=== PATIENT | male | born 1930 | race Caucasian/White ===

== ENCOUNTER 2016-07-10 07:37 | Outpatient (CLI) | payer MEDICARE, OTHER | END 2016-07-10 07:38 | disposition home or self-care (01) | DX: Q61.02 Congenital multiple renal cysts (principal); Z90.5 Acquired absence of kidney; J81.1 Chronic pulmonary edema; N05.9 Unspecified nephritic syndrome with unspecified morphologic changes; I50.9 Heart failure, unspecified; N18.5 Chronic kidney disease, stage 5 ==

== ENCOUNTER 2016-07-10 09:44 | Outpatient (CLI) | payer MEDICARE, OTHER ==
[2016-07-10 10:41] LABS: CALCIUM 8.9 mg/dL (8.5-10.3); POTASSIUM 4.8 mmol/L (3.5-5.0)
== END 2016-07-10 09:45 | disposition home or self-care (01) ==
LOC: LAB 09:44
PROVIDERS: ATTEND Internal Medicine Nephrology
DX: N05.9 Unspecified nephritic syndrome with unspecified morphologic changes (principal); I50.9 Heart failure, unspecified
CPT/HCPCS: 36415; 80048; 83880

== ENCOUNTER 2016-08-02 01:29 | Outpatient (CLI) | payer MEDICARE, OTHER | END 2016-08-02 01:30 | disposition critical access hospital (66) | LOC: EMS 01:29 | PROVIDERS: ATTEND Surgery | DX: M54.9 Dorsalgia, unspecified (principal); W01.198A Fall on same level from slipping, tripping and stumbling with subsequent striking against other object, initial encounter; Y92.019 Unspecified place in single-family (private) house as the place of occurrence of the external cause | CPT/HCPCS: A0425; A0429 ==

== ENCOUNTER 2016-08-02 01:40 | Inpatient (IN) | payer MEDICARE, OTHER ==
[2016-08-02] MEDS ORDERED: fentaNYL 100 MCG/2 ML VIAL IVP STA ×2 (02:02→03:38)
[2016-08-02] MEDS ORDERED: fentaNYL 100 MCG/2 ML VIAL ONE ×2 (02:07→03:34)
--- NOTE | 2016-08-02 03:11 | CT Preliminary Report ---
Exam: CT Chest W/O IMPRESSION: 1. Left posterior eighth and ninth rib fractures. 2. Moderate left basilar atelectasis or infiltrate. Mild pulmonary contusion could also be present. N o significant pleural fluid collection or pneumothorax. 3. Coronary artery calcifications. 4. Small hiatal hernia. [facility] SITE ID: [id number]
--- NOTE | 2016-08-02 03:13 | CT Report ---
EXAM: CT CHEST EXAM DATE: 08/02/2016 02:46 AM. CLINICAL HISTORY: Fall, posterior left rib pain, osteoporosis. COMPARISONS: None. TECHNIQUE: Routine helical CT imaging was performed through the chest. IV contrast: None. Reconstructions: Coron al and sagittal. In accordance with CT protocol optimization, one or more of the following dose reduction techniques w ere utilized for this exam: automated exposure control, adjustment of mA and/or KV based on patient s ize, or use of iterative reconstructive technique. FINDINGS: Lungs/Pleura: Mild right basilar atelectasis. Moderate left basilar atelectasis, infiltrate, or pulmo nary contusion. No significant pleural fluid collection. No pneumothorax seen. Mediastinum: Heart size is normal. Coronary artery calcifications. No lymphadenopathy seen. No medias tinal hematoma. Aortic atherosclerosis. No aortic aneurysm. Small hiatal hernia. Bones: Osteopenia. Left posterior eighth and ninth rib fractures. Degenerative changes in the spine. Visualized Abdomen: Status post right nephrectomy. Moderate to large amount of stool in the visualize d portions of the colon. Other: None. IMPRESSION: 1. Left posterior eighth and ninth rib fractures. 2. Moderate left basilar atelectasis or infiltrate. Mild pulmonary contusion could also be present. N o significant pleural fluid collection or pneumothorax. 3. Coronary artery calcifications. 4. Small hiatal hernia. [facility] Referring Provider Line: [phone] SITE ID: [id number]
[2016-08-02] MEDS ORDERED: IBUPROFEN 600 MG TABLET PO PRN (03:32)
[2016-08-02] MEDS ORDERED: ONDANSETRON 4 MG/2 ML VIAL IVP PRN (03:32)
[2016-08-02] MEDS ORDERED: PROCHLORPERAZINE 10 MG/2 ML VIAL IVP PRN (03:32)
[2016-08-02] MEDS ORDERED: SODIUM CHLORIDE FLUSH 0.9% 10 ML SYRINGE IVP PRN (03:32)
--- NOTE | 2016-08-02 03:32 | ED Physician Documentation ---
PD HPI TRUNK INJURY - Stated complaint Stated Complaint: L Flank & Rib px - Chief complaint Chief Complaint: Trauma Ch/Bk - History obtained from History obtained from: Patient, EMS - History of Present Illness Location: Posterior chest Type of injury: Fall Timing - onset: How many hours ago (1) Timing - details: Abrupt onset Quality: Pain, Sharp Improved by: Immobilization Associated symtptoms: Swelling. No: Weakness, Numbness, Tingling Where injury occured: Home Similar symptoms before: Has not had sx before Recently seen: Not recently seen - Additional information Additional information: Patient is a 85 year old male who is presenting after falling landing on his back. Patient states that he has pain in his left posterior ribs but denies any other pain at this time. Patient denied any loc or any head pain. Review of Systems Constitutional: denies: Fever, Chills Eyes: denies: Loss of vision, Photophobia Ears: denies: Ear pain Nose: denies: Epistaxis Throat: denies: Dental pain / toothache Cardiac: denies: Chest pain / pressure, Palpitations Respiratory: denies: Cough, Wheezing GI: denies: Abdominal Pain, Nausea, Vomiting Skin: denies: Rash, Lesions, Laceration (s) Musculoskeletal: reports: Back pain. denies: Neck pain, Extremity pain, Joint pain, Extremity swelling Neurologic: denies: Generalized weakness, Focal weakness, Numbness, Difficulty speaking Immunocompromised: denies: Immunocompromised PD PAST MEDICAL HISTORY - Past Medical History Cardiovascular: Hypertension, High cholesterol Respiratory: None Neuro: None Endocrine/Autoimmune: Type 2 diabetes GI: GERD, Ulcers : Renal insuffiency HEENT: Chronic vision loss Psych: None Musculoskeletal: Osteoarthritis Derm: None - Past Surgical History Past Surgical History: Yes General: Appendectomy Ortho: Knee replacement Neuro: Craniotomy HEENT: Tonsil/Adenoidectomy - Present Medications Home Medications: Ambulatory Orders Medication Instructions Recorded Confirmed Amlodipine Besylate 5 mg PO DAILY 02/01/13 08/02/16 Atorvastatin Calcium [Lipitor] 20 mg PO DAILY 02/01/13 08/02/16 Ferrous Gluconate [Iron] 236 mg PO DAILY 02/01/13 08/02/16 Ergocalciferol [Vitamin D2] 1 cap PO DAILY 08/02/16 08/02/16 - Allergies Allergies/Adverse Reactions: Allergies Allergy/AdvReac Type Severity Reaction Status Date / Time niacin Allergy Severe Hives Verified 11/29/15 10:28 - Social History Does the pt smoke?: No Smoking Status: Former smoker Does the pt drink ETOH?: No Does the pt have substance abuse?: No - Immunizations Immunizations are current?: Yes - POLST Patient has POLST: No PD ED PE NORMAL - General General: Alert and oriented X 3, Well developed/nourished - HEENT HEENT: Atraumatic, PERRL, Dentition benign - Neck Neck: Supple, no meningeal sign, No bony TTP - Cardiac Cardiac: RRR, No murmur - Respiratory Respiratory: No respiratory distress, Clear bilaterally - Abdomen Abdomen: Soft, Non distended - Derm Derm: Normal color, Warm and dry, No rash - Extremities Extremities: No deformity, No tenderness to palpate, No calf tenderness / cord - Neuro Neuro: Alert and oriented X 3, No motor deficit, No sensory deficit, Normal speech - Psych Psych: Normal mood, Normal affect PD ED PE EXPANDED - General General: Alert, In Pain - Back Back: Other (tenderness to palpation of left posterior ribs) Results - Vitals Vitals: Vital Signs - 24 hr 08/02/16 08/02/16 08/02/16 01:40 02:10 02:25 Temperature 36.7 C Heart Rate 62 64 63 Respiratory 18 17 16 Rate Blood Pressure 157/75 H 156/73 H 169/72 H O2 Saturation 95 95 95 08/02/16 08/02/16 02:51 03:32 Temperature Heart Rate 66 68 Respiratory 16 18 Rate Blood Pressure 161/80 H 159/72 H O2 Saturation 94 95 Oxygen O2 Source [With Activity] Room air O2 Source [Without Activity] Room air O2 Source Room air - Rads (name of study) chest CT Radiology: Final report received (fractures of posterior 8th and 9th ribs, pulmonary contusion, atelectasis vs infiltrate) PD MEDICAL DECISION MAKING - ED course Complexity details: reviewed old records, reviewed results, re-evaluated patient , considered differential, d/w patient, d/w family, d/w business sales consultant ED course: Patient was seen and examined at bedside. IV access was gained and patient was treated with fentanyl and sent for imaging. When patient returned the results were reviewed. Patient was found to have multiple rib fractures and a pulmonary contusion and atelectasis. Hospitalist was contacted and the case was discussed with him. Patient was admitted for further evaluation and care. While awaiting for inpatient bed. Patient's pain returned and he was treated with lidoderm patch and 50mcg of fentanyl. Departure - Departure Disposition: ED Place in Observation Clinical Impression: Fracture of rib, Left pulmonary contusion Condition: Stable Discharge Date/Time: 08/02/16 04:44
[2016-08-02] MEDS ORDERED: LIDOCAINE PATCH 5% TOP STA (03:38)
[2016-08-02] MEDS ORDERED: LIDOCAINE PATCH 5% TOP ONE (03:42)
--- NOTE | 2016-08-02 05:15 | HISTORY & PHYSICAL EXAMINATION ---
Chief Complaint - Chief Complaint Chief Complaint: chest pain History of Present Illness - Admitted From Admitted From:: emergency Department - History Obtained From Records Reviewed: yes History obtained from: patient Exam Limitations: Patient unable to turn in bed due to severe pain in posterior chest wall - History of Present Illness HPI Comment/Other: Patient is an 85-year-old gentleman with a past medical history significant for hypertension, hyperlipidemia, iron deficiency anemia, chronic constipation, renal cell carcinoma status post nephrectomy and history of diabetes now diet controlled who presented to the emergency department with complaint of chest pain. The patient states that this evening he was getting ready to go to bed and was in the bathroom ready to brush his teeth when he states he slipped hit the wall and then fell onto his back. He states that he laid on the floor for close to an hour is using too much pain to move initially. He states that he then slowly crawled his way into his bedroom and got into bed. He states that he he continued to have severe left-sided chest pain in the posterior chest wall. He also stated he could not take a deep breath as it was too painful. He finally decided to press his med alert button as he could no longer take the pain. He states that he has had about 4 falls in the last month and did scrape his left arm but did not have any significant chronic pain or fractures from falls. The patient states that he does use a walker at home and sometimes uses a pain. He states that he was not using either one when he fell today in the bathroom. The patient denies any loss of consciousness, head trauma and he denies being on any blood thinners. The patient denies any recent fevers or chills. He denies any recent shortness of breath or any chest pain prior to this episode. The patient denies any orthopnea or increased lower extremity swelling. The patient denies any focal neurologic deficits. On presentation to the emergency department the patient was afebrile blood pressure was slightly elevated but otherwise vital signs were stable. The patient underwent a CT of his chest which revealed left posterior eighth and ninth rib fracture. There was also finding of mild pulmonary contusion. The patient was given IV fentanyl in the emergency department and continued to have severe pain anytime he tried to take a deep breath. The patient lives alone at home and given his lung contusion, severe pain and difficulty even moving in the bed it was felt that the patient would benefit from a stay in observation to get his pain controlled and work out a better discharge planith help from social work and PT. Review of Systems - Constitutional Constitutional: denies: Fatigue, Fever, Chills, Malaise, Weakness, Poor appetite , Diaphoresis, Night sweats, Weight gain, Weight loss, Other - Eyes Eyes: denies: Pain, Irritation, Amaurosis, Blurred vision, Spots in vision, Field loss, Vision loss, Dipolpia, Corrective lenses, Other - Ears, Nose & Throat Ears, Nose & Throat: denies: Ear pain, Hearing loss, Hearing aids, Tinnitus, Vertigo, Nasal pain, Nasal discharge, Nosebleeds, Nasal obstruction, Nasal congestion, Postnasal drainage, Dentures, Sore throat, Hoarseness, Mouth lesions , Bleeding gums, Dental decay, Dental pain, Other - Cardiovascular Cariovascular: reports: Chest pain. denies: Irregular heart rate, Palpitations , Edema, Lightheadedness, Syncope, Exertional dyspnea, Decr. exercise tolerance , Orthopnea - Respiratory Respiratory: reports: SOB at rest, Pleuritic pain. denies: Cough, Sputum production, Wheezing, Orthopnea, SOB with exertion, Stridor - Gastrointestinal Gastrointestinal: denies: Abdominal pain, Abdominal distention, Constipation, Diarrhea, Change in bowel habits, Black stools, Bloody stools, Nausea, Vomiting , Bile emesis, Benjamín blood emesis, Coffee grounds emesis, Poor appetite - Genitourinary Genitourinary: denies: Dysuria, Frequency, Urgency, Hematuria, Incontinence, Flank pain, Nocturia, Urethral discharge, Sexual dysfunction, Other - Musculoskeletal Musculoskeletal: reports: Back pain (Left posterior chest wall), Limited range of motion (Secondary to severe pain). denies: Muscle pain, Muscle aches, Stiffness, Muscle weakness - Integumentary Integumentary: denies: Rash, Pruritis, Lesions, Dryness - Neurological Neurological: denies: General weakness, Focal weakness, Headache, Dizziness, Numbness, Memory problems, Abnormal gait - Psychiatric Psychiatric: denies: Depression, Anxiety - Endocrine Endocrine: denies: Polyuria, Polydypsia, Polyphagia, Intolerance to cold, Intolerance to heat - Hematologic/Lymphatic Hematologic/Lymphatic: denies: Anemia, Bruising, Petechiae, Lymphadenopathy History - Past Medical History Cardiovascular: reports: Hypertension, High cholesterol Respiratory: reports: None Neuro: reports: None Endocrine/Autoimmune: reports: Type 2 diabetes (Diet controlled) GI: reports: GERD, Ulcers : reports: Other (Renal cell cancer s/p Nephrectomy ) HEENT: reports: Chronic vision loss Psych: reports: None Musculoskeletal: reports: Osteoarthritis Derm: reports: None MRSA Hx?: No - Past Surgical History General: reports: Appendectomy Ortho: reports: Knee replacement Neuro: reports: Craniotomy HEENT: reports: Tonsil/Adenoidectomy - Family & Social History Family History: Mother: (Dad of pneumonia), Alzheimer's Disease ( Dementia), CAD (Lung Cancer), Father: , Sister: Alive and Well (Daughter ), Other family: Alive and Well, Mental Illness (Son has bipolar) Living arrangement: At home Living Situation: Alone Social History Notes: Patient is . He lives alone. He uses a 4 wheeled walker and cane. He has had multiple falls in the last month. He is retired [place]. His daughter lives nearby, his son-in-law is at bedside. Patient was born in [facility]. He lived in [place], [place], [place], [place], [place], [place] and finally moved to [facility] 2004. He smoked from ages [age] he smoked 1-1/2 packs a day. He did drink alcohol but quit in 1971. He denies any illicit drug use. - Substance History Use: Uses substance without health or social issues: NONE Abuse: Recurrent use of substance despite neg consequences: NONE Dependence: Experiences withdrawal or developed tolerances: NONE - POLST Patient has POLST: No POLST Status: DNR Meds/Allgy - Home Medications Home Medications: Ambulatory Orders Medication Instructions Recorded Confirmed Amlodipine Besylate 5 mg PO DAILY 02/01/13 08/02/16 Atorvastatin Calcium [Lipitor] 20 mg PO DAILY 02/01/13 08/02/16 Ferrous Gluconate [Iron] 236 mg PO DAILY 02/01/13 08/02/16 Ergocalciferol [Vitamin D2] 1 cap PO DAILY 08/02/16 08/02/16 - Allergies Allergies/Adverse Reactions: Allergies Allergy/AdvReac Type Severity Reaction Status Date / Time niacin Allergy Severe Hives Verified 11/29/15 10:28 Exam - Vital Signs Reviewed Vital Signs: Yes Vital Signs: Vital Signs x48h Pulse Resp BP Pulse Ox 08/02/16 04:40 71 18 133/89 H 96 08/02/16 04:11 70 18 167/88 H 96 - Physical Exam General Appearance: positive: Moderate distress (Cannot take deep breath due to severe pain in the posterior left chest wall.) Eyes Bilateral: positive: Normal inspection, PERRL, EOMI, No lid inflammation, Conjunctivae nml, No scleral icterus ENT: positive: ENT inspection nml, Pharynx nml, No signs of dehydration. negative: Purulent nasal drainage, Pharyngeal erythema, Oral lesions Neck: positive: Nml inspection, Thyroid nml, No JVD, Trachea midline. negative : Thyromegaly, Lymphadenopathy (R), Lymphadenopathy (L) Respiratory: positive: Rales (Left lung base), Other (Shallow breathing, severe chest wall tenderness in the left posterior chest wall.) Cardiovascular: positive: Regular rate & rhythm, No murmur, No gallop Peripheral Pulses: positive: 2+ Abdomen: positive: Non-tender, No organomegaly, Nml bowel sounds, Other (Hernia) . negative: Guarding, Rebound Back: positive: Nml inspection. negative: CVA tenderness (R), CVA tenderness (L ) Skin: positive: Color nml, No rash, Warm. negative: Cyanosis, Diaphoresis, Pallor, Skin rash Extremities: positive: Non-tender, Full ROM, Nml appearance, No pedal edema Neurologic/Psychiatric: positive: Oriented x3, CN's nml (2-12), Motor nml, Sensation nml, Mood/affect nml Conclusion/Plan - Problem List (1) Lung contusion Conclusion/Plan: Patient had lung contusion secondary to fall in his bathroom. CT shows a left posterior eighth and ninth rib fractures and left mild pulmonary contusion. Patient does not have fevers or chills he is not hypoxic but having severe pain and unable to take deep breaths secondary to severe pain. Plan Pain control with by mouth and IV narcotics. Incentive spirometry Monitor for hypoxia, fever, cough and pneumonia Qualifiers: Laterality: left (2) Ribs, multiple fractures Conclusion/Plan: Patient presented to the ER after fall onto his left posterior chest. Patient had unbearable pain and severe pain with deep breathing. CT of the chest showed left posterior eighth and ninth rib fractures. CT also showed moderate left basilar atelectasis concerning for mild pulmonary contusion. Plan IV and by mouth narcotics for pain control. Incentive spirometry PT consult as patient has had multiple falls in the last month Social work consult as patient lives alone and in current situation cannot take care of himself. Monitor closely for developing pneumonia Qualifiers: Fracture type: closed Laterality: left (3) Hypertension Conclusion/Plan: blood pressure elevated on presentation likely secondary to pain continue home antihypertensives monitor blood pressure Qualifiers: Hypertension type: essential hypertension Qualified Code(s): I10 - Essential (primary) hypertension (4) Hyperlipidemia Conclusion/Plan: continue statin stable (5) Prophylactic use of low molecular weight heparin for venous thromboembolism Conclusion/Plan: placed on Lovenox and given fractures and likely need for bedrest - Lab Results Lab results reviewed: No - Diagnostic Imaging Results Diagnostic Imaging Results: positive: Final report reviewed - EKG Results EKG Interpreted Independently: No Issues/Core Measures - Anticipated LOS Anticipated Stay Length: Less than 2 midnights - DVT/VTE - Prophylaxis VTE/DVT Prophylaxis med ordered at admit?: Yes
[2016-08-02] MEDS: PANTOPRAZOLE 40 MG TABLET PO SCH (06:40)
[2016-08-02] MEDS: SODIUM CHLORIDE FLUSH 0.9% 10 ML SYRINGE IVP SCH ×3 (06:41→17:06)
[2016-08-02] MEDS: MORPHINE 2 MG/ML SYRINGE IVP PRN (06:44)
--- NOTE | 2016-08-02 08:04 | PROVIDER PROGRESS NOTE ---
Assessment/Plan - Problem List (1) Fall as cause of accidental injury at home as place of occurrence Assessment/Plan: sequela. Fall in bathroom and hitting left side of chest. continue with respiratory therapy support with oxygen and pulmonary toilet. splinting and cough and deep breathing. incentive spirometry. fall precautions. (2) Left pulmonary contusion Qualifiers: Encounter type: initial encounter Qualified Code(s): S27.321A - Contusion of lung, unilateral, initial encounter Assessment/Plan: acute. respiratory therapy for duoneb treatments and supplemental oxygen. continuous pulse ox when needed. (3) Closed rib fracture Qualifiers: Rib fracture type: multiple ribs Laterality: left Fracture healing: with routine healing Assessment/Plan: acute. continue with pain managment with morphine IV and tylenol. encourage deep breath and coughing. incentive spirometry used. RT support with supplemental oxygen and duoneb treatments (4) Chronic kidney disease (CKD), active medical management without dialysis Qualifiers: Chronic kidney disease stage: stage 4 (severe) Qualified Code(s): N18.4 - Chronic kidney disease, stage 4 (severe) Assessment/Plan: chronic with mild dehydration with monitor kidney functionand telemetry monitoring. avoid nephrotoxic medications. SCD, no lovenox. IVF NS for gentle hydration and monitor output. GFR at 12. (5) Hyperlipidemia Qualifiers: Hyperlipidemia type: mixed hyperlipidemia Qualified Code(s): E78.2 - Mixed hyperlipidemia Assessment/Plan: stable. continue on cholesterol medications home dosage - Current Meds Current Meds: Current Medications Generic Name Dose Route Start Last Admin Trade Name Freq PRN Reason Stop Dose Admin Morphine Sulfate 2 mg 08/02/16 03:32 08/02/16 06:44 Morphine IVP 2 mg Q2HR PRN Administration Pain 8 to 10 Pantoprazole Sodium 40 mg 08/02/16 07:00 08/02/16 06:40 Protonix PO 40 mg QDAC HEAVEN Administration Sodium Chloride 10 ml 08/02/16 06:00 08/02/16 06:41 Normal Saline Flush 0.9% IVP 10 ml Q8HR HEAVEN Administration - Lab Result Lab results reviewed: Yes Fish Bone Diagrams: 08/02/16 11:20 08/02/16 11:20 Other Lab Results: Abnormal Lab Results 08/02/16 08/02/16 08/02/16 11:20 11:20 14:55 WBC 11.2 x10^3/uL H x10^3/uL (4.8-10.8) RBC 3.37 10^6/uL L 10^6/uL (4.70-6.10) Hgb 10.4 g/dL L g/dL (14.0-18.0) Hct 31.2 % L % (42.0-52.0) MPV 7.3 fL L fL (7.4-11.4) Neut # 7.7 10^3/uL H 10^3/uL (1.5-6.6) [place] # 1.5 10^3/uL H 10^3/uL (0.0-1.0) Carbon Dioxide 20 mmol/L L mmol/L (21-32) BUN 75 mg/dL H mg/dL (6-20) Creatinine 4.6 mg/dL H mg/dL (0.6-1.2) Estimated GFR (MDRD) 12 L (>89) Glucose 147 mg/dL H mg/dL (70-100) Globulin 4.4 g/dL H g/dL (2.1-4.2) Albumin/Globulin Ratio 0.8 L (1.0-2.2) Urine Glucose (UA) 100 mg/dL H mg/dL (NEGATIVE) - EKG Results EKG Interpreted Independently: Yes - Additional Planning Condition/Complexity: Stable My Orders: My Active Orders 08/02/16 07:55 Respiratory Care [RC] .ONCE Consult/Specialty: OT, PT Plan Discussed with:: Patient, Family, Case Management Time Spent: 31-60 minutes Subjective - Subjective Patient Reports: Feeling Better (pain to left rib cage with breathing and RT treatments), Resting Comfortably, Pain Nursing Reports: Pain Objective Vital Signs: Vital Signs - 24 hr 08/02/16 08/02/16 08/02/16 04:11 04:40 05:00 Temperature 36.9 C Heart Rate 70 71 Heart Rate [ 74 Brachial] Respiratory 18 18 15 Rate Blood Pressure 167/88 H 133/89 H Blood Pressure 173/87 H [Right Brachial artery] O2 Saturation 96 96 94 Oxygen O2 Source Room air I&O (Last 24 Hrs): Intake and Output Totals x24h 07/31/16 08/01/16 08/02/16 23:59 23:59 23:59 Output Total 400 Balance -400 General: Alert, Oriented x3, Cooperative, No acute distress HEENT: Atraumatic, PERRLA, Mucous membr. moist/pink Neck: Supple, No JVD, No thyromegaly Neuro: Alert, Non Focal, CN 2-12 Grossly Intact, Oriented Times 3 Cardiovascular: Normal S1, Normal S2, No murmurs Respiratory: No respiratory distress, Breath sounds nml (tender chest wall to left side with palpation) Abdomen: Normal bowel sounds, Soft Genitourinary: Normal Inspection Extremities: No clubbing, No cyanosis, No edema (Patient will need another 24 hours for pain management and control. He is high risk for worsening co morbid conditions and will need IV medication with high risk for toxicity.), Normal pulses Skin: No rashes, No breakdown, No significant lesion - Procedures Procedures: Procedures ESOPHAGOGASTRODUODENOSCOPY [EGD] W/CLOSED BIOPSY (02/01/13) INSERTION OF INTRAMED FIX INTO R UP FEMUR, OPEN APPROACH (01/30/15) OTH TRANSURETHRAL PROSTATECTOMY (10/01/13) URETHRAL DILATION (10/01/13)
[2016-08-02] MEDS: POLYETHYLENE GLYCOL 3350 17 GM PACKET PO SCH (08:19)
[2016-08-02] MEDS: oxyCODONE 5 MG TABLET PO PRN ×2 (08:23→12:32)
[2016-08-02] MEDS: FERROUS GLUCONATE 324 MG TABLET PO SCH (08:23)
[2016-08-02] MEDS: CHOLECALCIFEROL 5,000 UNIT CAPSULE PO SCH (08:28)
[2016-08-02] MEDS ORDERED: amLODIPine 5 MG TABLET PO SCH (09:00)
[2016-08-02] MEDS ORDERED: ENOXAPARIN 30 MG/0.3 ML SYRINGE SUBQ SCH (09:00)
[2016-08-02] MEDS ORDERED: ATORVASTATIN 10 MG TABLET PO SCH (09:00)
[2016-08-02 11:39] LABS: BASOPHILS % (AUTO) 0.3 %; EOSINOPHILS # (AUTO) 0.1 10^3/uL (0.0-0.7); EOSINOPHILS % (AUTO) 0.5 %; HCT - HEMATOCRIT 31.2 % (42.0-52.0); HGB - HEMOGLOBIN 10.4 g/dL (14.0-18.0); LYMPHOCYTES # (AUTO) 1.9 10^3/uL (1.5-3.5); LYMPHOCYTES % (AUTO) 16.7 %; MEAN CORPUSCULAR HEMOGLOBIN 30.7 pg (27.0-31.0); MEAN CORPUSCULAR HGB CONC 33.3 g/dL (32.0-36.0); MEAN CORPUSCULAR VOLUME 92.4 fL (80.0-94.0); MEAN PLATELET VOLUME 7.3 fL (7.4-11.4); MONOCYTES # (AUTO) 1.5 10^3/uL (0.0-1.0); MONOCYTES % (AUTO) 13.3 %; NEUTROPHILS # (AUTO) 7.7 10^3/uL (1.5-6.6); NEUTROPHILS % (AUTO) 69.2 %; RED BLOOD COUNT 3.37 10^6/uL (4.70-6.10); RED CELL DISTRIBUTION WIDTH 13.8 % (12.0-15.0); UNCORRECTED WHITE BLOOD COUNT 11.2 x10^3/uL; WHITE BLOOD COUNT 11.2 x10^3/uL (4.8-10.8)
[2016-08-02 11:42] LABS: ALBUMIN/GLOBULIN RATIO 0.8 (1.0-2.2); BILIRUBIN,TOTAL 0.6 mg/dL (0.2-1.0); CALCIUM 9.2 mg/dL (8.5-10.3); CREATININE 4.6 mg/dL (0.6-1.2); POTASSIUM 4.6 mmol/L (3.5-5.0); TOTAL PROTEIN 7.8 g/dL (6.7-8.2)
[2016-08-02 15:15] LABS: BILIRUBIN,URINE NEGATIVE (NEGATIVE); PH,URINE 6.5 PH (5.0-7.5)
[2016-08-02 15:23] LABS: UR CULTURE IF IND NOT INDICATED; WBC,URINE 0-3 /HPF (0-3)
[2016-08-02 15:44] LABS: MAGNESIUM 2.3 mg/dL (1.7-2.8); PHOSPHORUS 4.5 mg/dL (2.5-4.6)
[2016-08-02] MEDS: ACETAMINOPHEN 325 MG TABLET PO PRN (17:06)
[2016-08-02] MEDS: SODIUM CHLORIDE 0.9% 1,000 ML IV SCH (17:06)
[2016-08-03] MEDS: oxyCODONE 5 MG TABLET PO PRN ×5 (03:21→21:14)
[2016-08-03] MEDS: MORPHINE 2 MG/ML SYRINGE IVP PRN ×4 (05:12→18:10)
[2016-08-03] MEDS: SODIUM CHLORIDE 0.9% 1,000 ML IV SCH ×2 (05:14→15:57)
[2016-08-03] MEDS: PANTOPRAZOLE 40 MG TABLET PO SCH (06:10)
[2016-08-03] MEDS: amLODIPine 5 MG TABLET PO SCH (06:10)
[2016-08-03] MEDS: SODIUM CHLORIDE FLUSH 0.9% 10 ML SYRINGE IVP SCH ×3 (06:11→21:26)
[2016-08-03 06:27] LABS: BASOPHILS % (AUTO) 0.3 %; EOSINOPHILS # (AUTO) 0.1 10^3/uL (0.0-0.7); EOSINOPHILS % (AUTO) 1.7 %; HCT - HEMATOCRIT 29.3 % (42.0-52.0); HGB - HEMOGLOBIN 9.8 g/dL (14.0-18.0); LYMPHOCYTES # (AUTO) 1.5 10^3/uL (1.5-3.5); LYMPHOCYTES % (AUTO) 18.6 %; MEAN CORPUSCULAR HEMOGLOBIN 31.2 pg (27.0-31.0); MEAN CORPUSCULAR HGB CONC 33.5 g/dL (32.0-36.0); MEAN CORPUSCULAR VOLUME 93.4 fL (80.0-94.0); MEAN PLATELET VOLUME 7.6 fL (7.4-11.4); MONOCYTES # (AUTO) 1.1 10^3/uL (0.0-1.0); MONOCYTES % (AUTO) 14.1 %; NEUTROPHILS # (AUTO) 5.3 10^3/uL (1.5-6.6); NEUTROPHILS % (AUTO) 65.3 %; RED BLOOD COUNT 3.13 10^6/uL (4.70-6.10); RED CELL DISTRIBUTION WIDTH 13.9 % (12.0-15.0); UNCORRECTED WHITE BLOOD COUNT 8.1 x10^3/uL; WHITE BLOOD COUNT 8.1 x10^3/uL (4.8-10.8)
[2016-08-03 06:40] LABS: ALBUMIN/GLOBULIN RATIO 0.8 (1.0-2.2); BILIRUBIN,TOTAL 0.3 mg/dL (0.2-1.0); CALCIUM 8.7 mg/dL (8.5-10.3); CREATININE 4.4 mg/dL (0.6-1.2); POTASSIUM 4.7 mmol/L (3.5-5.0); TOTAL PROTEIN 6.9 g/dL (6.7-8.2)
[2016-08-03] MEDS: DOCUSATE SODIUM 250 MG CAPSULE PO SCH (09:33)
[2016-08-03] MEDS: CHOLECALCIFEROL 5,000 UNIT CAPSULE PO SCH (09:33)
[2016-08-03] MEDS: SENNA 8.6 MG TABLET PO SCH (09:33)
[2016-08-03] MEDS ORDERED: FERROUS SULFATE 325 MG TABLET PO SCH (10:00)
[2016-08-03] MEDS: CYCLOBENZAPRINE 10 MG TABLET PO PRN (10:14)
[2016-08-03] MEDS: POLYETHYLENE GLYCOL 3350 17 GM PACKET PO SCH (10:15)
--- NOTE | 2016-08-03 11:17 | PROVIDER PROGRESS NOTE ---
Assessment/Plan - Problem List (1) Shoulder pain, acute Qualifiers: Laterality: left Qualified Code(s): M25.512 - Pain in left shoulder Assessment/Plan: acute. patient is not complaining of left shoulder pain after fall onto left side at home. will get xray 3 view of the shoulder left side (2) Fall as cause of accidental injury at home as place of occurrence Assessment/Plan: ongoing but improving. fall precautions. continue with IV and oral pain medications. titrate to only oral if possible. continue with PT and OT (3) Left pulmonary contusion Qualifiers: Encounter type: initial encounter Qualified Code(s): S27.321A - Contusion of lung, unilateral, initial encounter (4) Closed rib fracture Qualifiers: Rib fracture type: multiple ribs Laterality: left Fracture healing: with routine healing Assessment/Plan: improving. continue with incentive spirometry and duoneb treatments with supplemental oxygen as needed (5) Chronic kidney disease (CKD), active medical management without dialysis Qualifiers: Chronic kidney disease stage: stage 4 (severe) Qualified Code(s): N18.4 - Chronic kidney disease, stage 4 (severe) Assessment/Plan: onging, BUN worse today but creatinine has improved. GFR improved. continue with mild hydration and monitor fluid volume and stop IVF with edema and or crackles in lungs. avoid nephrotoxic drugs. (6) Hyperlipidemia Qualifiers: Hyperlipidemia type: mixed hyperlipidemia Qualified Code(s): E78.2 - Mixed hyperlipidemia Assessment/Plan: chronic. continue with cholesterol medications home dosage (7) Anemia in chronic kidney disease (CKD) Assessment/Plan: acute on chronic. hemoglobin dropped but could be dilutional. continue to monitor daily with labs. - Current Meds Current Meds: Current Medications Generic Name Dose Route Start Last Admin Trade Name Freq PRN Reason Stop Dose Admin Acetaminophen 650 mg 08/02/16 03:32 08/02/16 17:06 Tylenol PO 650 mg Q4HR PRN Administration Pain 1 to 4 Amlodipine Besylate 10 mg 08/03/16 05:50 08/03/16 06:10 Norvasc PO 10 mg DAILY HEAVEN Administration Cholecalciferol 10,000 unit 08/02/16 09:00 08/03/16 09:33 Vitamin D3 PO 10,000 unit DAILY HEAVEN Administration Cyclobenzaprine HCl 10 mg 08/03/16 09:57 08/03/16 10:14 Flexeril PO 10 mg QPM PRN Administration Spasms Docusate Sodium 250 - 500 mg 08/03/16 09:00 08/03/16 09:33 Colace 250mg Capsule PO 250 mg DAILY HEAVEN Administration Ferrous Gluconate 324 mg 08/02/16 09:00 08/02/16 08:23 Fergon PO 324 mg DAILY HEAVEN Administration Sodium Chloride 1,000 mls @ 83.333 mls/hr 08/02/16 16:00 08/03/16 05:14 Normal Saline 0.9% IV 83.333 mls/hr .Q12H HEAVEN Administration Morphine Sulfate 2 mg 08/02/16 03:32 08/03/16 09:30 Morphine IVP 2 mg Q2HR PRN Administration Pain 8 to 10 Oxycodone HCl 5 mg 08/02/16 03:32 08/03/16 03:21 Roxicodone PO 5 mg Q4HR PRN Administration Pain 5 to 7 Oxycodone HCl 10 mg 08/02/16 03:32 08/03/16 07:24 Roxicodone PO 10 mg Q4HR PRN Administration Pain 8 to 10 Pantoprazole Sodium 40 mg 08/02/16 07:00 08/03/16 06:10 Protonix PO 40 mg QDAC HEAVEN Administration Polyethylene Glycol 17 gm 08/02/16 09:00 08/03/16 10:15 Miralax PO 17 gm DAILY HEAVEN Administration Senna 8.6 - 17.2 mg 08/03/16 09:00 08/03/16 09:33 Senokot PO 8.6 mg DAILY HEAVEN Administration Sodium Chloride 10 ml 08/02/16 06:00 08/03/16 06:11 Normal Saline Flush 0.9% IVP Not Given Q8HR HEAVEN - Lab Result Lab results reviewed: Yes Fish Bone Diagrams: 08/03/16 05:25 08/03/16 05:25 Other Lab Results: Abnormal Lab Results 08/02/16 08/02/16 08/02/16 11:20 11:20 14:55 WBC 11.2 x10^3/uL H x10^3/uL (4.8-10.8) RBC 3.37 10^6/uL L 10^6/uL (4.70-6.10) Hgb 10.4 g/dL L g/dL (14.0-18.0) Hct 31.2 % L % (42.0-52.0) MCH MPV 7.3 fL L fL (7.4-11.4) Neut # 7.7 10^3/uL H 10^3/uL (1.5-6.6) [place] # 1.5 10^3/uL H 10^3/uL (0.0-1.0) Carbon Dioxide 20 mmol/L L mmol/L (21-32) BUN 75 mg/dL H mg/dL (6-20) Creatinine 4.6 mg/dL H mg/dL (0.6-1.2) Estimated GFR (MDRD) 12 L (>89) Glucose 147 mg/dL H mg/dL (70-100) POC Whole Bld Glucose Albumin Globulin 4.4 g/dL H g/dL (2.1-4.2) Albumin/Globulin Ratio 0.8 L (1.0-2.2) Urine Glucose (UA) 100 mg/dL H mg/dL (NEGATIVE) 08/02/16 08/02/16 08/03/16 16:54 20:59 05:25 WBC RBC 3.13 10^6/uL L 10^6/uL (4.70-6.10) Hgb 9.8 g/dL L g/dL (14.0-18.0) Hct 29.3 % L % (42.0-52.0) MCH 31.2 pg H pg (27.0-31.0) MPV Neut # [place] # 1.1 10^3/uL H 10^3/uL (0.0-1.0) Carbon Dioxide BUN Creatinine Estimated GFR (MDRD) Glucose POC Whole Bld Glucose 110 mg/dL H mg/dL 121 mg/dL H mg/dL (70 - 100) (70 - 100) Albumin Globulin Albumin/Globulin Ratio Urine Glucose (UA) 08/03/16 08/03/16 05:25 10:54 WBC RBC Hgb Hct MCH MPV Neut # [place] # Carbon Dioxide 20 mmol/L L mmol/L (21-32) BUN 80 mg/dL H* mg/dL (6-20) Creatinine 4.4 mg/dL H mg/dL (0.6-1.2) Estimated GFR (MDRD) 13 L (>89) Glucose POC Whole Bld Glucose 125 mg/dL H mg/dL (70 - 100) Albumin 3.0 g/dL L g/dL (3.2-5.5) Globulin Albumin/Globulin Ratio 0.8 L (1.0-2.2) Urine Glucose (UA) - EKG Results EKG Interpreted Independently: No - Additional Planning Condition/Complexity: Stable My Orders: My Active Orders 08/02/16 16:00 Sodium Chloride 0.9% [Normal Saline 0.9%] 1,000 ml IV 83.333 mls/hr 08/02/16 Lunch Carb-controlled Diet [DIET] 08/03/16 09:00 Docusate Sodium 250Mg Capsule [Colace 250Mg Capsule] 250 - 500 mg PO DAILY Senna [Senokot] 8.6 - 17.2 mg PO DAILY 08/03/16 09:57 Cyclobenzaprine [Flexeril] 10 mg PO QPM PRN 08/03/16 11:15 Shoulder 3 View LT [XR] Stat 08/04/16 09:00 Cholecalciferol [Vitamin D3] 2,000 unit PO DAILY Consult/Specialty: OT, PT Plan Discussed with:: Patient, Case Management Time Spent: 31-60 minutes (Patient should have been discharged home today but has additional pain to left shoulder requiring xray. He is wanting one more night. He is high risk for worsening co morbid conditions with renal failure, on IV medication with high risk for toxicity and additional diagnostics needed.) Subjective - Subjective Patient Reports: Resting Comfortably, Pain (has complaint of left shoulder pain under axila and not able to lift left shoulder higher than 45 degrees without significant pain today), Other Nursing Reports: Pain, Other Objective Vital Signs: Vital Signs - 24 hr 08/02/16 08/02/16 08/02/16 11:18 12:13 15:58 Temperature 36.4 C L 36.6 C Heart Rate [ 78 58 L 63 Brachial] Heart Rate [ Radial] Respiratory 20 16 20 Rate Blood Pressure 148/78 H 125/75 165/87 H [Right Brachial artery] O2 Saturation 95 94 97 08/02/16 08/03/16 08/03/16 21:00 00:45 01:05 Temperature 36.7 C 37.0 C Heart Rate [ 60 64 62 Brachial] Heart Rate [ Radial] Respiratory 18 18 Rate Blood Pressure 167/78 H 171/77 H 161/79 H [Right Brachial artery] O2 Saturation 95 94 08/03/16 08/03/16 08/03/16 05:00 05:46 08:32 Temperature 36.9 C 36.9 C Heart Rate [ 89 68 Brachial] Heart Rate [ 62 Radial] Respiratory 20 16 Rate Blood Pressure 182/80 H 192/64 H [Right Brachial artery] O2 Saturation 95 93 Oxygen O2 Source Room air I&O (Last 24 Hrs): Intake and Output Totals x24h 08/01/16 08/02/16 08/03/16 23:59 23:59 23:59 Intake Total 1729 1403 Output Total 1650 1075 Balance 79 328 General: Alert, Oriented x3, Cooperative, No acute distress HEENT: PERRLA, Mucous membr. moist/pink Neck: Supple, No JVD, No thyromegaly Lymphatic: no adenopathy Neuro: Alert, Oriented Times 3 Cardiovascular: Normal S1, Normal S2, No murmurs Respiratory: No respiratory distress, Other (diminished breath sounds in bases, clear) Abdomen: Normal bowel sounds, Soft, No tenderness, No masses Extremities: No clubbing, No cyanosis, No edema, Normal pulses Skin: No rashes, No breakdown, No significant lesion - Results Results: Laboratory Results WBC 8.1 x10^3/uL (4.8-10.8) 08/03/16 05:25 RBC 3.13 10^6/uL (4.70-6.10) L 08/03/16 05:25 Hgb 9.8 g/dL (14.0-18.0) L 08/03/16 05:25 Hct 29.3 % (42.0-52.0) L 08/03/16 05:25 MCV 93.4 fL (80.0-94.0) 08/03/16 05:25 MCH 31.2 pg (27.0-31.0) H 08/03/16 05:25 MCHC 33.5 g/dL (32.0-36.0) 08/03/16 05:25 RDW 13.9 % (12.0-15.0) 08/03/16 05:25 Plt Count 160 10^3/uL (130-450) 08/03/16 05:25 MPV 7.6 fL (7.4-11.4) 08/03/16 05:25 Neut # 5.3 10^3/uL (1.5-6.6) 08/03/16 05:25 Lymph # 1.5 10^3/uL (1.5-3.5) 08/03/16 05:25 [place] # 1.1 10^3/uL (0.0-1.0) H 08/03/16 05:25 Eos # 0.1 10^3/uL (0.0-0.7) 08/03/16 05:25 Baso # 0.0 10^3/uL (0.0-0.1) 08/03/16 05:25 Absolute Nucleated RBC 0.00 x10^3/uL 08/03/16 05:25 Nucleated RBCs 0.0 /100WBC 08/03/16 05:25 Sodium 138 mmol/L (135-145) 08/03/16 05:25 Potassium 4.7 mmol/L (3.5-5.0) 08/03/16 05:25 Chloride 110 mmol/L (101-111) 08/03/16 05:25 Carbon Dioxide 20 mmol/L (21-32) L 08/03/16 05:25 Anion Gap 8.0 (6-13) 08/03/16 05:25 BUN 80 mg/dL (6-20) H* 08/03/16 05:25 Creatinine 4.4 mg/dL (0.6-1.2) H 08/03/16 05:25 Estimated GFR (MDRD) 13 (>89) L 08/03/16 05:25 Glucose 98 mg/dL (70-100) 08/03/16 05:25 POC Whole Bld Glucose 125 mg/dL (70 - 100) H 08/03/16 10:54 Calcium 8.7 mg/dL (8.5-10.3) 08/03/16 05:25 Phosphorus 4.5 mg/dL (2.5-4.6) 08/02/16 11:20 Magnesium 2.3 mg/dL (1.7-2.8) 08/02/16 11:20 Total Bilirubin 0.3 mg/dL (0.2-1.0) 08/03/16 05:25 AST 21 IU/L (10-42) 08/03/16 05:25 ALT 22 IU/L (10-60) 08/03/16 05:25 Alkaline Phosphatase 64 IU/L (42-121) 08/03/16 05:25 Total Protein 6.9 g/dL (6.7-8.2) 08/03/16 05:25 Albumin 3.0 g/dL (3.2-5.5) L 08/03/16 05:25 Globulin 3.9 g/dL (2.1-4.2) 08/03/16 05:25 Albumin/Globulin Ratio 0.8 (1.0-2.2) L 08/03/16 05:25 Urine Color YELLOW 08/02/16 14:55 Urine Clarity CLEAR (CLEAR) 08/02/16 14:55 Urine pH 6.5 PH (5.0-7.5) 08/02/16 14:55 Ur Specific [place] 1.020 (1.002-1.030) 08/02/16 14:55 Urine Protein >=300 mg/dL (NEGATIVE) 08/02/16 14:55 Urine Glucose (UA) 100 mg/dL (NEGATIVE) H 08/02/16 14:55 Urine Ketones NEGATIVE mg/dL (NEGATIVE) 08/02/16 14:55 Urine Occult Blood TRACE-LYSE (NEGATIVE) 08/02/16 14:55 Urine Nitrite NEGATIVE (NEGATIVE) 08/02/16 14:55 Urine Bilirubin NEGATIVE (NEGATIVE) 08/02/16 14:55 Urine Urobilinogen 0.2 (NORMAL) E.U./dL (NORMAL) 08/02/16 14:55 Ur Leukocyte Esterase NEGATIVE (NEGATIVE) 08/02/16 14:55 Urine RBC 0-5 /HPF (0-5) 08/02/16 14:55 Urine WBC 0-3 /HPF (0-3) 08/02/16 14:55 Ur Squamous Epith Cells RARE Squamous (<= Few) 08/02/16 14:55 Urine Bacteria Rare /HPF (None Seen) 08/02/16 14:55 Urine Culture Comments NOT INDICATED 08/02/16 14:55 - Procedures Procedures: Procedures ESOPHAGOGASTRODUODENOSCOPY [EGD] W/CLOSED BIOPSY (02/01/13) INSERTION OF INTRAMED FIX INTO R UP FEMUR, OPEN APPROACH (01/30/15) OTH TRANSURETHRAL PROSTATECTOMY (10/01/13) URETHRAL DILATION (10/01/13)
--- NOTE | 2016-08-03 12:24 | XRAY Report ---
THREE-VIEW LEFT SHOULDER: 08/03/2016 CLINICAL INDICATION: Pain after fall. FINDINGS: AP, oblique, scapular Y views of the left shoulder demonstrate mild degenerative changes. There is no evidence of shoulder fracture. Left rib fractures are noted. IMPRESSION: LEFT RIB FRACTURES. NO EVIDENCE OF SHOULDER FRACTURE. JOB #: [id number] EXT JOB #:[id number]
[2016-08-03] MEDS: FERROUS GLUCONATE 324 MG TABLET PO SCH (15:06)
[2016-08-03] MEDS: ATORVASTATIN 10 MG TABLET PO SCH (21:15)
[2016-08-04] MEDS: MORPHINE 2 MG/ML SYRINGE IVP PRN ×2 (00:17→11:00)
[2016-08-04] MEDS: ACETAMINOPHEN 325 MG TABLET PO PRN ×3 (02:47→21:42)
[2016-08-04] MEDS: SODIUM CHLORIDE 0.9% 1,000 ML IV SCH ×3 (03:48→22:24)
[2016-08-04 05:54] LABS: BASOPHILS % (AUTO) 0.3 %; EOSINOPHILS # (AUTO) 0.1 10^3/uL (0.0-0.7); EOSINOPHILS % (AUTO) 0.5 %; HCT - HEMATOCRIT 32.7 % (42.0-52.0); HGB - HEMOGLOBIN 10.5 g/dL (14.0-18.0); LYMPHOCYTES % (AUTO) 9.1 %; MEAN CORPUSCULAR HEMOGLOBIN 30.4 pg (27.0-31.0); MEAN CORPUSCULAR HGB CONC 32.1 g/dL (32.0-36.0); MEAN CORPUSCULAR VOLUME 94.5 fL (80.0-94.0); MEAN PLATELET VOLUME 6.9 fL (7.4-11.4); MONOCYTES # (AUTO) 1.4 10^3/uL (0.0-1.0); MONOCYTES % (AUTO) 12.3 %; NEUTROPHILS # (AUTO) 8.8 10^3/uL (1.5-6.6); NEUTROPHILS % (AUTO) 77.8 %; NUCLEATED RED BLOOD CELLS AUTO 0.1 /100WBC; RED BLOOD COUNT 3.46 10^6/uL (4.70-6.10); RED CELL DISTRIBUTION WIDTH 13.8 % (12.0-15.0); UNCORRECTED WHITE BLOOD COUNT 11.4 x10^3/uL; WHITE BLOOD COUNT 11.4 x10^3/uL (4.8-10.8)
[2016-08-04 06:09] LABS: ALBUMIN/GLOBULIN RATIO 0.7 (1.0-2.2); BILIRUBIN,TOTAL 0.5 mg/dL (0.2-1.0); CALCIUM 8.9 mg/dL (8.5-10.3); CREATININE 4.1 mg/dL (0.6-1.2); PHOSPHORUS 5.6 mg/dL (2.5-4.6); TOTAL PROTEIN 7.4 g/dL (6.7-8.2)
[2016-08-04] MEDS: PANTOPRAZOLE 40 MG TABLET PO SCH (06:43)
[2016-08-04] MEDS: SODIUM CHLORIDE FLUSH 0.9% 10 ML SYRINGE IVP SCH ×3 (06:46→19:18)
[2016-08-04] MEDS: POLYETHYLENE GLYCOL 3350 17 GM PACKET PO SCH (08:37)
[2016-08-04] MEDS: SENNA 8.6 MG TABLET PO SCH (08:38)
[2016-08-04] MEDS: DOCUSATE SODIUM 250 MG CAPSULE PO SCH (08:38)
[2016-08-04] MEDS: oxyCODONE 5 MG TABLET PO PRN ×3 (08:39→19:00)
[2016-08-04] MEDS: FERROUS GLUCONATE 324 MG TABLET PO SCH (08:39)
[2016-08-04] MEDS: CHOLECALCIFEROL 5,000 UNIT CAPSULE PO SCH (08:39)
[2016-08-04] MEDS: CHOLECALCIFEROL 1,000 UNIT TABLET PO SCH (08:40)
[2016-08-04] MEDS: amLODIPine 5 MG TABLET PO SCH (08:41)
--- NOTE | 2016-08-04 12:11 | CT Report ---
CT OF THE CHEST WITHOUT CONTRAST: 08/04/2016 CLINICAL INDICATION: Increasing pain, increasing O2 requirements. TECHNIQUE: Axial CT images of the chest were obtained without intravenous contrast, due to history of nephrectomy and renal dysfunction. COMPARISON: 08/02/2016. FINDINGS: The heart and great vessels demonstrate atherosclerotic calcifications. No hilar or medias tinal lymphadenopathy is present. There is new left lower lobe infiltrate present, and a small focus of consolidation in the right upper lobe. Trace left effusion is seen. No pneumothorax. Left rib frac tures appear stable. Limited evaluation of upper abdominal structures demonstrates changes of right n ephrectomy. The adrenal glands appear unremarkable. IMPRESSION: RIGHT UPPER AND LEFT LOWER LOBE INFILTRATES. TRACE LEFT EFFUSION. NO PNEUMOTHORAX. In accordance with CT protocol optimization, one or more of the following dose reduction techniques w ere utilized for this exam: automated exposure control, adjustment of mA and/or KV based on patient size, or use of iterative reconstructive technique. :9 JOB #: [id number] EXT JOB #:[id number]
[2016-08-04] MEDS: LIDOCAINE PATCH 5% TOP SCH (12:33)
[2016-08-04] MEDS ORDERED: IPRATROPIUM/ALBUTEROL 3 ML NEB INH PRN (14:48)
--- NOTE | 2016-08-04 14:57 | PROVIDER PROGRESS NOTE ---
Assessment/Plan - Problem List (1) Hospital-acquired pneumonia Assessment/Plan: Acute onset with CT scan 08/04/16 showing a new LLL infiltrate and RUL consolidation. Pt has increased oxygen needs with hypoxemia. Pt is not febrile. WBC this AM was mildly elevated at 11.4. VS remain stable without hydrodynamic compromise. HE does not meet sepsis criteria. PLAN: Will start Antibiotic therapy with IV Zosyn and Levaquin. DuoNeb SVN Q6H PRN. Encourage Incentive spirometry. PT will be changed from observation status to inpatient status. (2) Closed rib fracture Qualifiers: Rib fracture type: multiple ribs Laterality: left Fracture healing: with routine healing Assessment/Plan: Continued pain at site. Plan: Changed pain medication to include Lidoderm patch. Pt is also Dx with a new pneumonia. Will treat this wiht V medicaiton as he may have some pain increased from alma infection. Encourage IS (3) Left pulmonary contusion Qualifiers: Encounter type: initial encounter Qualified Code(s): S27.321A - Contusion of lung, unilateral, initial encounter Assessment/Plan: Stable on CT scan today 08/04/16. Plan:Monitor for changes (4) Hypertension Qualifiers: Hypertension type: essential hypertension Qualified Code(s): I10 - Essential (primary) hypertension Assessment/Plan: Elevated today. Suspect this is from pain and increase WOB. Plan: Continue current medications. - Current Meds Current Meds: Current Medications Generic Name Dose Route Start Last Admin Trade Name Freq PRN Reason Stop Dose Admin Acetaminophen 650 mg 08/02/16 03:32 08/04/16 02:47 Tylenol PO 650 mg Q4HR PRN Administration Pain 1 to 4 Amlodipine Besylate 10 mg 08/03/16 05:50 08/04/16 08:41 Norvasc PO 10 mg DAILY HEAVEN Administration Atorvastatin Calcium 20 mg 08/03/16 21:00 08/03/16 21:15 Lipitor PO 20 mg QPM HEAVEN Administration Cholecalciferol 10,000 unit 08/02/16 09:00 08/04/16 08:39 Vitamin D3 PO 10,000 unit DAILY HEAVEN Administration Cholecalciferol 2,000 unit 08/04/16 09:00 08/04/16 08:40 Vitamin D3 PO 2,000 unit DAILY HEAVEN Administration Cyclobenzaprine HCl 10 mg 08/03/16 09:57 08/03/16 10:14 Flexeril PO 10 mg QPM PRN Administration Spasms Docusate Sodium 250 - 500 mg 08/03/16 09:00 08/04/16 08:38 Colace 250mg Capsule PO 250 mg DAILY HEAVEN Administration Ferrous Gluconate 324 mg 08/02/16 09:00 08/04/16 08:39 Fergon PO 324 mg DAILY HEAVEN Administration Sodium Chloride 1,000 mls @ 83.333 mls/hr 08/02/16 16:00 08/04/16 03:48 Normal Saline 0.9% IV 83.333 mls/hr .Q12H HEAVEN Administration Lidocaine 1 patch 08/04/16 11:00 08/04/16 12:33 Lidoderm Patch TOP 1 patch DAILY HEAVEN Administration Morphine Sulfate 2 mg 08/02/16 03:32 08/04/16 11:00 Morphine IVP 2 mg Q2HR PRN Administration Pain 8 to 10 Oxycodone HCl 5 mg 08/02/16 03:32 08/03/16 03:21 Roxicodone PO 5 mg Q4HR PRN Administration Pain 5 to 7 Oxycodone HCl 10 mg 08/02/16 03:32 08/04/16 08:39 Roxicodone PO 10 mg Q4HR PRN Administration Pain 8 to 10 Pantoprazole Sodium 40 mg 08/02/16 07:00 08/04/16 06:43 Protonix PO 40 mg QDAC HEAVEN Administration Polyethylene Glycol 17 gm 08/02/16 09:00 08/04/16 08:37 Miralax PO 17 gm DAILY HEAVEN Administration Senna 8.6 - 17.2 mg 08/03/16 09:00 08/04/16 08:38 Senokot PO 8.6 mg DAILY HEAVEN Administration Sodium Chloride 10 ml 08/02/16 06:00 08/04/16 14:33 Normal Saline Flush 0.9% IVP 10 ml Q8HR HEAVEN Administration - Lab Result Lab results reviewed: Yes Fish Bone Diagrams: 08/04/16 05:46 08/04/16 05:46 - Additional Planning Condition/Complexity: Other (Declined today. Clinically stable without sepsis.) My Orders: My Active Orders 08/04/16 11:00 Lidocaine Patch 5% [Lidoderm Patch] 1 patch TOP DAILY 08/04/16 14:48 Nebulizer/MDI Tx. [RC] QID Resp Teach Nebulizer/MDI [RC] .ONCE Ipratropium/Albuterol [Duoneb] 3 ml INH RTQID PRN 08/04/16 14:49 Incentive Spirometry - RT [RC] TID 08/04/16 15:00 Piperacillin/Tazobactam [Zosyn] 4.5 gm Sodium Chloride 0.9% Minibag [Normal Saline 0.9% Minibag] 100 ml IV Q6H 08/04/16 16:00 levoFLOXacin 750 MG/150 ML [Levaquin 750 mg/150 ml] 150 ml IV ONCE Plan Discussed with:: Patient Time Spent: 15-30 minutes Subjective - Subjective Patient Reports: Chest Pain, Shortness of Breath, Other (PT has increased pain today. Pain is increased wtih respirations. He denies fever or chills.) Nursing Reports: Pain, Shortness of Breath Objective Vital Signs: Vital Signs - 24 hr 08/03/16 08/03/16 08/04/16 16:50 20:30 00:16 Temperature 36.9 C 37.3 C 37.4 C Heart Rate [ 58 L 83 Brachial] Heart Rate [ 82 Radial] Respiratory 20 18 18 Rate Blood Pressure 163/88 H 165/99 H 174/89 H [Right Brachial artery] O2 Saturation 93 93 93 08/04/16 08/04/16 08/04/16 00:22 00:35 05:00 Temperature 36.9 C 37.4 C Heart Rate [ 79 Brachial] Heart Rate [ 78 Radial] Respiratory 18 Rate Blood Pressure 168/88 H 157/82 H [Right Brachial artery] O2 Saturation 95 08/04/16 08/04/16 08:18 13:00 Temperature 36.6 C 37.0 C Heart Rate [ 66 65 Brachial] Heart Rate [ Radial] Respiratory 16 20 Rate Blood Pressure 181/66 H 163/80 H [Right Brachial artery] O2 Saturation 96 94 Oxygen O2 Source Nasal cannula I&O (Last 24 Hrs): Intake and Output Totals x24h 08/02/16 08/03/16 08/04/16 23:59 23:59 23:59 Intake Total 1729 3370 2604 Output Total 1650 1945 725 Balance 79 1425 1879 General: Alert, Oriented x3 HEENT: PERRLA, EOMI Neck: No JVD Neuro: Alert, CN 2-12 Grossly Intact Cardiovascular: Regular rate, No murmurs Respiratory: No respiratory distress, Rales, Rhonchi Abdomen: Normal bowel sounds, Soft - Results Results: Laboratory Results WBC 11.4 x10^3/uL (4.8-10.8) H 08/04/16 05:46 RBC 3.46 10^6/uL (4.70-6.10) L 08/04/16 05:46 Hgb 10.5 g/dL (14.0-18.0) L 08/04/16 05:46 Hct 32.7 % (42.0-52.0) L 08/04/16 05:46 MCV 94.5 fL (80.0-94.0) H 08/04/16 05:46 MCH 30.4 pg (27.0-31.0) 08/04/16 05:46 MCHC 32.1 g/dL (32.0-36.0) 08/04/16 05:46 RDW 13.8 % (12.0-15.0) 08/04/16 05:46 Plt Count 165 10^3/uL (130-450) 08/04/16 05:46 MPV 6.9 fL (7.4-11.4) L 08/04/16 05:46 Neut # 8.8 10^3/uL (1.5-6.6) H 08/04/16 05:46 Lymph # 1.0 10^3/uL (1.5-3.5) L 08/04/16 05:46 [place] # 1.4 10^3/uL (0.0-1.0) H 08/04/16 05:46 Eos # 0.1 10^3/uL (0.0-0.7) 08/04/16 05:46 Baso # 0.0 10^3/uL (0.0-0.1) 08/04/16 05:46 Absolute Nucleated RBC 0.01 x10^3/uL 08/04/16 05:46 Nucleated RBCs 0.1 /100WBC 08/04/16 05:46 Sodium 138 mmol/L (135-145) 08/04/16 05:46 Potassium 5.0 mmol/L (3.5-5.0) 08/04/16 05:46 Chloride 108 mmol/L (101-111) 08/04/16 05:46 Carbon Dioxide 21 mmol/L (21-32) 08/04/16 05:46 Anion Gap 9.0 (6-13) 08/04/16 05:46 BUN 69 mg/dL (6-20) H 08/04/16 05:46 Creatinine 4.1 mg/dL (0.6-1.2) H 08/04/16 05:46 Estimated GFR (MDRD) 14 (>89) L 08/04/16 05:46 Glucose 130 mg/dL (70-100) H 08/04/16 05:46 POC Whole Bld Glucose 129 mg/dL (70 - 100) H 08/04/16 11:25 Calcium 8.9 mg/dL (8.5-10.3) 08/04/16 05:46 Phosphorus 5.6 mg/dL (2.5-4.6) H 08/04/16 05:46 Magnesium 2.0 mg/dL (1.7-2.8) 08/04/16 05:46 Total Bilirubin 0.5 mg/dL (0.2-1.0) 08/04/16 05:46 AST 19 IU/L (10-42) 08/04/16 05:46 ALT 20 IU/L (10-60) 08/04/16 05:46 Alkaline Phosphatase 67 IU/L (42-121) 08/04/16 05:46 Total Protein 7.4 g/dL (6.7-8.2) 08/04/16 05:46 Albumin 3.1 g/dL (3.2-5.5) L 08/04/16 05:46 Globulin 4.3 g/dL (2.1-4.2) H 08/04/16 05:46 Albumin/Globulin Ratio 0.7 (1.0-2.2) L 08/04/16 05:46 Urine Color YELLOW 08/02/16 14:55 Urine Clarity CLEAR (CLEAR) 08/02/16 14:55 Urine pH 6.5 PH (5.0-7.5) 08/02/16 14:55 Ur Specific [place] 1.020 (1.002-1.030) 08/02/16 14:55 Urine Protein >=300 mg/dL (NEGATIVE) 08/02/16 14:55 Urine Glucose (UA) 100 mg/dL (NEGATIVE) H 08/02/16 14:55 Urine Ketones NEGATIVE mg/dL (NEGATIVE) 08/02/16 14:55 Urine Occult Blood TRACE-LYSE (NEGATIVE) 08/02/16 14:55 Urine Nitrite NEGATIVE (NEGATIVE) 08/02/16 14:55 Urine Bilirubin NEGATIVE (NEGATIVE) 08/02/16 14:55 Urine Urobilinogen 0.2 (NORMAL) E.U./dL (NORMAL) 08/02/16 14:55 Ur Leukocyte Esterase NEGATIVE (NEGATIVE) 08/02/16 14:55 Urine RBC 0-5 /HPF (0-5) 08/02/16 14:55 Urine WBC 0-3 /HPF (0-3) 08/02/16 14:55 Ur Squamous Epith Cells RARE Squamous (<= Few) 08/02/16 14:55 Urine Bacteria Rare /HPF (None Seen) 08/02/16 14:55 Urine Culture Comments NOT INDICATED 08/02/16 14:55 - Procedures Procedures: Procedures ESOPHAGOGASTRODUODENOSCOPY [EGD] W/CLOSED BIOPSY (02/01/13) INSERTION OF INTRAMED FIX INTO R UP FEMUR, OPEN APPROACH (01/30/15) OTH TRANSURETHRAL PROSTATECTOMY (10/01/13) URETHRAL DILATION (10/01/13)
[2016-08-04] MEDS ORDERED: PIPERACILLIN/TAZOBACTAM 4.5 GM in SODIUM CHLORIDE 0.9% MINIBAG 100 ML IV SCH (18:00)
[2016-08-04] MEDS: ATORVASTATIN 10 MG TABLET PO SCH (21:39)
[2016-08-04] MEDS: CYCLOBENZAPRINE 10 MG TABLET PO PRN (21:40)
[2016-08-05] MEDS: oxyCODONE 5 MG TABLET PO PRN ×5 (00:15→20:42)
[2016-08-05] MEDS: PIPERACILLIN/TAZOBACTAM 4.5 GM in SODIUM CHLORIDE 0.9% MINIBAG 100 ML IV SCH ×2 (02:12→14:34)
[2016-08-05] MEDS: SODIUM CHLORIDE FLUSH 0.9% 10 ML SYRINGE IVP SCH ×3 (06:47→20:09)
[2016-08-05] MEDS: PANTOPRAZOLE 40 MG TABLET PO SCH (06:49)
[2016-08-05] MEDS: POLYETHYLENE GLYCOL 3350 17 GM PACKET PO SCH (09:16)
[2016-08-05] MEDS: LIDOCAINE PATCH 5% TOP SCH (09:17)
[2016-08-05] MEDS: FERROUS GLUCONATE 324 MG TABLET PO SCH (09:17)
[2016-08-05] MEDS: amLODIPine 5 MG TABLET PO SCH (09:17)
[2016-08-05] MEDS: CHOLECALCIFEROL 5,000 UNIT CAPSULE PO SCH (09:17)
[2016-08-05] MEDS: DOCUSATE SODIUM 250 MG CAPSULE PO SCH (09:17)
[2016-08-05] MEDS: CHOLECALCIFEROL 1,000 UNIT TABLET PO SCH (09:17)
[2016-08-05] MEDS: SENNA 8.6 MG TABLET PO SCH (09:17)
[2016-08-05] MEDS: SODIUM CHLORIDE 0.9% 1,000 ML IV SCH (11:07)
[2016-08-05] MEDS: MORPHINE 2 MG/ML SYRINGE IVP PRN ×2 (11:34→13:28)
--- NOTE | 2016-08-05 13:25 | PROVIDER PROGRESS NOTE ---
Assessment/Plan - Problem List (1) Hospital-acquired pneumonia Assessment/Plan: Symptoms improved on ABX. Breathing better. Remains afebrile. Plan: Continue IV ABX. Anticipate discharge in 2 days (2) Closed rib fracture Qualifiers: Rib fracture type: multiple ribs Laterality: left Fracture healing: with routine healing Assessment/Plan: Pain is controlled. No pain exacerbation today. discomfort from yesterday has improved with treatment of pneumonia. Plan: no changes today. Encourage IS. (3) Left pulmonary contusion Qualifiers: Encounter type: initial encounter Qualified Code(s): S27.321A - Contusion of lung, unilateral, initial encounter Assessment/Plan: Stable on CT scan. No changes today (4) Hypertension Qualifiers: Hypertension type: essential hypertension Qualified Code(s): I10 - Essential (primary) hypertension Assessment/Plan: Mildly elevated today. report of being controlled at home on medications. Plan: Continue to monitor. May benefit from additional antihypertensive therapy. This could be performed at outpatient follow up with PCP - Current Meds Current Meds: Current Medications Generic Name Dose Route Start Last Admin Trade Name Freq PRN Reason Stop Dose Admin Acetaminophen 650 mg 08/02/16 03:32 08/04/16 21:42 Tylenol PO 650 mg Q4HR PRN Administration Pain 1 to 4 Amlodipine Besylate 10 mg 08/03/16 05:50 08/05/16 09:17 Norvasc PO 10 mg DAILY HEAVEN Administration Atorvastatin Calcium 20 mg 08/03/16 21:00 08/04/16 21:39 Lipitor PO 20 mg QPM HEAVEN Administration Cholecalciferol 10,000 unit 08/02/16 09:00 08/05/16 09:17 Vitamin D3 PO 10,000 unit DAILY HEAVEN Administration Cholecalciferol 2,000 unit 08/04/16 09:00 08/05/16 09:17 Vitamin D3 PO 2,000 unit DAILY HEAVEN Administration Cyclobenzaprine HCl 10 mg 08/03/16 09:57 08/04/16 21:40 Flexeril PO 10 mg QPM PRN Administration Spasms Docusate Sodium 250 - 500 mg 08/03/16 09:00 08/05/16 09:17 Colace 250mg Capsule PO 250 mg DAILY HEAVEN Administration Ferrous Gluconate 324 mg 08/02/16 09:00 08/05/16 09:17 Fergon PO 324 mg DAILY HEAVEN Administration Sodium Chloride 1,000 mls @ 83.333 mls/hr 08/02/16 16:00 08/05/16 11:07 Normal Saline 0.9% IV 83.333 mls/hr .Q12H HEAVEN Administration Piperacillin Sod/Tazobactam 100 mls @ 25 mls/hr 08/05/16 02:00 08/05/16 02:12 Sod 4.5 gm/ Sodium Chloride IV 25 mls/hr Q12H HEAVEN Administration Lidocaine 1 patch 08/04/16 11:00 08/05/16 09:17 Lidoderm Patch TOP 1 patch DAILY HEAVEN Administration Morphine Sulfate 2 mg 08/02/16 03:32 08/05/16 11:34 Morphine IVP 2 mg Q2HR PRN Administration Pain 8 to 10 Oxycodone HCl 5 mg 08/02/16 03:32 08/04/16 19:00 Roxicodone PO 5 mg Q4HR PRN Administration Pain 5 to 7 Oxycodone HCl 10 mg 08/02/16 03:32 08/05/16 12:35 Roxicodone PO 10 mg Q4HR PRN Administration Pain 8 to 10 Pantoprazole Sodium 40 mg 08/02/16 07:00 08/05/16 06:49 Protonix PO 40 mg QDAC HEAVEN Administration Polyethylene Glycol 17 gm 08/02/16 09:00 08/05/16 09:16 Miralax PO 17 gm DAILY HEAVEN Administration Senna 8.6 - 17.2 mg 08/03/16 09:00 08/05/16 09:17 Senokot PO 8.6 mg DAILY HEAVEN Administration Sodium Chloride 10 ml 08/02/16 06:00 08/05/16 11:35 Normal Saline Flush 0.9% IVP 10 ml Q8HR HEAVEN Administration - Lab Result Lab results reviewed: Yes Fish Bone Diagrams: 08/04/16 05:46 08/04/16 05:46 - Diagnostic Imaging Results Diagnostic Imaging Results: positive: Final report reviewed - Additional Planning Condition/Complexity: Stable My Orders: My Active Orders 08/04/16 14:48 Nebulizer/MDI Tx. [RC] .qidprn Ipratropium/Albuterol [Duoneb] 3 ml INH RTQID PRN 08/04/16 21:24 RT [Oxygen Therapy] [RC] PRN 08/05/16 02:00 Piperacillin/Tazobactam [Zosyn] 4.5 gm Sodium Chloride 0.9% Minibag [Normal Saline 0.9% Minibag] 100 ml IV Q12H 08/06/16 16:00 levoFLOXacin 500 MG/100 ML [Levaquin 500 mg/100 ml] 100 ml IV Q48H Plan Discussed with:: Patient Time Spent: 15-30 minutes Subjective - Subjective Patient Reports: Feeling Better (PT is feeling better. Pain better controlled. Breathing has improved since starting ABX. No fever or chills over night.) Nursing Reports: No Complaints Objective Vital Signs: Vital Signs - 24 hr 08/04/16 08/04/16 08/04/16 16:24 21:00 21:25 Temperature 37.1 C 36.7 C Heart Rate 75 Heart Rate [ 71 75 Brachial] Heart Rate [ Radial] Respiratory 20 20 18 Rate Blood Pressure 169/85 H 168/94 H [Right Brachial artery] O2 Saturation 93 93 08/05/16 08/05/16 08/05/16 01:00 05:00 08:47 Temperature 37.5 C 37.2 C 36.8 C Heart Rate Heart Rate [ 77 68 Brachial] Heart Rate [ 65 Radial] Respiratory 18 20 14 Rate Blood Pressure 168/77 H 174/80 H 159/82 H [Right Brachial artery] O2 Saturation 94 92 94 08/05/16 12:27 Temperature 36.5 C Heart Rate Heart Rate [ 74 Brachial] Heart Rate [ Radial] Respiratory 14 Rate Blood Pressure 143/75 H [Right Brachial artery] O2 Saturation 95 Oxygen O2 Source Nasal cannula I&O (Last 24 Hrs): Intake and Output Totals x24h 08/03/16 08/04/16 08/05/16 23:59 23:59 23:59 Intake Total 3370 4064 2284 Output Total 1945 1575 625 Balance 1425 2489 1659 General: Alert, Oriented x3 HEENT: PERRLA, EOMI Neck: No JVD Neuro: Alert, CN 2-12 Grossly Intact Cardiovascular: Regular rate, Normal S1, Normal S2 Respiratory: Chest non-tender, No respiratory distress, Other (diminished left base) Abdomen: Normal bowel sounds Extremities: Other (Incision C/D/I) - Results Results: Laboratory Results WBC 11.4 x10^3/uL (4.8-10.8) H 08/04/16 05:46 RBC 3.46 10^6/uL (4.70-6.10) L 08/04/16 05:46 Hgb 10.5 g/dL (14.0-18.0) L 08/04/16 05:46 Hct 32.7 % (42.0-52.0) L 08/04/16 05:46 MCV 94.5 fL (80.0-94.0) H 08/04/16 05:46 MCH 30.4 pg (27.0-31.0) 08/04/16 05:46 MCHC 32.1 g/dL (32.0-36.0) 08/04/16 05:46 RDW 13.8 % (12.0-15.0) 08/04/16 05:46 Plt Count 165 10^3/uL (130-450) 08/04/16 05:46 MPV 6.9 fL (7.4-11.4) L 08/04/16 05:46 Neut # 8.8 10^3/uL (1.5-6.6) H 08/04/16 05:46 Lymph # 1.0 10^3/uL (1.5-3.5) L 08/04/16 05:46 [place] # 1.4 10^3/uL (0.0-1.0) H 08/04/16 05:46 Eos # 0.1 10^3/uL (0.0-0.7) 08/04/16 05:46 Baso # 0.0 10^3/uL (0.0-0.1) 08/04/16 05:46 Absolute Nucleated RBC 0.01 x10^3/uL 08/04/16 05:46 Nucleated RBCs 0.1 /100WBC 08/04/16 05:46 Sodium 138 mmol/L (135-145) 08/04/16 05:46 Potassium 5.0 mmol/L (3.5-5.0) 08/04/16 05:46 Chloride 108 mmol/L (101-111) 08/04/16 05:46 Carbon Dioxide 21 mmol/L (21-32) 08/04/16 05:46 Anion Gap 9.0 (6-13) 08/04/16 05:46 BUN 69 mg/dL (6-20) H 08/04/16 05:46 Creatinine 4.1 mg/dL (0.6-1.2) H 08/04/16 05:46 Estimated GFR (MDRD) 14 (>89) L 08/04/16 05:46 Glucose 130 mg/dL (70-100) H 08/04/16 05:46 POC Whole Bld Glucose 144 mg/dL (70 - 100) H 08/05/16 11:47 Calcium 8.9 mg/dL (8.5-10.3) 08/04/16 05:46 Phosphorus 5.6 mg/dL (2.5-4.6) H 08/04/16 05:46 Magnesium 2.0 mg/dL (1.7-2.8) 08/04/16 05:46 Total Bilirubin 0.5 mg/dL (0.2-1.0) 08/04/16 05:46 AST 19 IU/L (10-42) 08/04/16 05:46 ALT 20 IU/L (10-60) 08/04/16 05:46 Alkaline Phosphatase 67 IU/L (42-121) 08/04/16 05:46 Total Protein 7.4 g/dL (6.7-8.2) 08/04/16 05:46 Albumin 3.1 g/dL (3.2-5.5) L 08/04/16 05:46 Globulin 4.3 g/dL (2.1-4.2) H 08/04/16 05:46 Albumin/Globulin Ratio 0.7 (1.0-2.2) L 08/04/16 05:46 Urine Color YELLOW 08/02/16 14:55 Urine Clarity CLEAR (CLEAR) 08/02/16 14:55 Urine pH 6.5 PH (5.0-7.5) 08/02/16 14:55 Ur Specific [place] 1.020 (1.002-1.030) 08/02/16 14:55 Urine Protein >=300 mg/dL (NEGATIVE) 08/02/16 14:55 Urine Glucose (UA) 100 mg/dL (NEGATIVE) H 08/02/16 14:55 Urine Ketones NEGATIVE mg/dL (NEGATIVE) 08/02/16 14:55 Urine Occult Blood TRACE-LYSE (NEGATIVE) 08/02/16 14:55 Urine Nitrite NEGATIVE (NEGATIVE) 08/02/16 14:55 Urine Bilirubin NEGATIVE (NEGATIVE) 08/02/16 14:55 Urine Urobilinogen 0.2 (NORMAL) E.U./dL (NORMAL) 08/02/16 14:55 Ur Leukocyte Esterase NEGATIVE (NEGATIVE) 08/02/16 14:55 Urine RBC 0-5 /HPF (0-5) 08/02/16 14:55 Urine WBC 0-3 /HPF (0-3) 08/02/16 14:55 Ur Squamous Epith Cells RARE Squamous (<= Few) 08/02/16 14:55 Urine Bacteria Rare /HPF (None Seen) 08/02/16 14:55 Urine Culture Comments NOT INDICATED 08/02/16 14:55 - Procedures Procedures: Procedures ESOPHAGOGASTRODUODENOSCOPY [EGD] W/CLOSED BIOPSY (02/01/13) INSERTION OF INTRAMED FIX INTO R UP FEMUR, OPEN APPROACH (01/30/15) OTH TRANSURETHRAL PROSTATECTOMY (10/01/13) URETHRAL DILATION (10/01/13)
[2016-08-05] MEDS: CYCLOBENZAPRINE 10 MG TABLET PO PRN (17:52)
[2016-08-05] MEDS: ACETAMINOPHEN 325 MG TABLET PO PRN (20:42)
[2016-08-05] MEDS: ATORVASTATIN 10 MG TABLET PO SCH (20:42)
[2016-08-06] MEDS: PIPERACILLIN/TAZOBACTAM 4.5 GM in SODIUM CHLORIDE 0.9% MINIBAG 100 ML IV SCH ×2 (01:44→11:08)
[2016-08-06] MEDS: oxyCODONE 5 MG TABLET PO PRN (04:38)
[2016-08-06] MEDS: SODIUM CHLORIDE 0.9% 1,000 ML IV SCH (05:26)
[2016-08-06] MEDS: SODIUM CHLORIDE FLUSH 0.9% 10 ML SYRINGE IVP SCH ×2 (06:11→14:25)
[2016-08-06] MEDS: MORPHINE 2 MG/ML SYRINGE IVP PRN (06:15)
[2016-08-06] MEDS: PANTOPRAZOLE 40 MG TABLET PO SCH (06:16)
[2016-08-06] MEDS: LIDOCAINE PATCH 5% TOP SCH (07:34)
[2016-08-06] MEDS: ACETAMINOPHEN 325 MG TABLET PO PRN (07:34)
[2016-08-06 07:41] VITALS: BP 171/83
[2016-08-06] MEDS ORDERED: fentaNYL 100 MCG/2 ML VIAL IVP SCH (08:00)
[2016-08-06] MEDS: CHOLECALCIFEROL 1,000 UNIT TABLET PO SCH (08:33)
[2016-08-06] MEDS: FERROUS GLUCONATE 324 MG TABLET PO SCH (08:34)
[2016-08-06] MEDS: DOCUSATE SODIUM 250 MG CAPSULE PO SCH (08:34)
[2016-08-06] MEDS: amLODIPine 5 MG TABLET PO SCH (08:34)
[2016-08-06] MEDS: SENNA 8.6 MG TABLET PO SCH (08:34)
[2016-08-06] MEDS: CHOLECALCIFEROL 5,000 UNIT CAPSULE PO SCH (08:34)
[2016-08-06] MEDS: POLYETHYLENE GLYCOL 3350 17 GM PACKET PO SCH (08:35)
--- NOTE | 2016-08-06 11:57 | Discharge Plan ---
Discharge Plan Disposition: 03 DC/Xfer Condition: Stable Prescriptions: oxyCODONE [Roxicodone] 5 mg PO Q4HR PRN #20 tablet PRN Reason: Pain 5 to 7 Amlodipine Besylate 10 mg PO DAILY #30 tablet Levofloxacin [Levaquin] 750 mg PO DAILY #10 tablet Lidocaine Patch 5% [Lidoderm Patch] 1 patch TOP DAILY #30 patch Diet: Regular Activity Restrictions: No Restrictions Shower Restrictions: No Weight Bearing: Full Weight No Smoking: If you smoke, Please STOP! Call for help.
--- NOTE | 2016-08-06 19:07 | DISCHARGE SUMMARY ---
DATE OF ADMISSION: 08/02/2016 DATE OF DISCHARGE: 08/06/2016 DISCHARGING PROVIDER: Manuelito Sinclair PA-C PRIMARY CARE PHYSICIAN: Rigoberto Pacheco MD ADMITTING DIAGNOSES 1. Lung contusion after mechanical fall. 2. Multiple rib fractures from mechanical fall. 3. Hypertension. 4. Hyperlipidemia. DISCHARGE DIAGNOSES 1. Pneumonia. a. Left lower lobe and right upper lobe pneumonia. b. Treated with IV antibiotics during hospitalizations. c. Discharged on oral antibiotics. d. Symptomatically, improved. 2. Left-sided lung contusion after mechanical fall - stable on imaging. 3. Multiple rib fractures. a. Posterior left 8th and 9th ribs. b. Pain improved but persists with movement and deep respirations. 4. Hypertension - controlled. 5. Hyperlipidemia - on statin medication. DISCHARGE MEDICATIONS Include: 1. Oxycodone 5 mg 1 tablet by mouth every 4 hours as needed for pain. 2. Amlodipine 10 mg daily; this is an increase from his baseline of 5 mg daily. 3. Levaquin 750 mg daily for 10 days. 4. Augmentin 875/125 at 1 tablet by mouth twice daily for 10 days. BRIEF HISTORY OF PRESENT ILLNESS: For specifics, please see admission. This is a patient with known h istory of hypertension, hyperlipidemia, iron deficiency anemia, chronic constipation, renal cell carc inoma with nephrectomy, and a history of diabetes which is diet controlled, who was reported for ches t pain after a mechanical fall. The patient was in his bathroom brushing his teeth when he slipped, f alling and injuring his left posterior rib and receiving a contusion to the left lung. COURSE IN CENTER: Patient was admitted to the medical floor for further management and pain control. The patient had an anticipation of discharge in 1-2 days. Unfortunately, he had increasing dyspnea an d hypoxemia. Chest CT was performed for further assessment on 08/04/2016, with the results of right u pper and left lower lobe infiltrates, trace left effusion; no pneumothorax was present. The patient w as then started on IV antibiotics of Levaquin and Zosyn. He improved on these medications with a decr ease in oxygen need. The patient continued to have pain from his contusion and fractures. At time of discharge, the patient was doing well but will require admission to a long term facility for fu rther treatment that does not require further hospitalization. RADIOLOGY STUDIES CHEST CT 08/02/2016: Left posterior 8th and 9th rib fracture. Moderate left basilar atelectasis or in filtrates. Mild pulmonary contusion. No pleural fluid or pneumothorax. Coronary artery calcification present. Small hiatal hernia. SHOULDER X-RAY 08/03/2016: No evidence of a shoulder fracture. Left rib fractures again seen. CT SCAN 08/04/2016: Right upper lobe and left lower lobe pneumonia present. No pneumothorax appreciat ed. PHYSICAL EXAMINATION ON DISCHARGE GENERAL: Well-developed, well-nourished, in no acute distress. Cooperative with history and physical exam. HEENT: Normocephalic, atraumatic. Pupils equal, round, reactive to light. EOMs intact. NECK: Without carotid bruits. CHEST: Diminished breath sounds on the left. A few basilar crackles. No wheezes appreciated. Normal r espiratory rate, effort inhibited by pain with deep respirations. CARDIOVASCULAR: Regular rate and rhythm without rub or gallop appreciated. ABDOMEN: Benign. EXTREMITIES: Without edema, deformities, discolorations, or ulcerations. NEUROLOGIC: Cranial nerves 2-12 grossly intact. DISCHARGE INSTRUCTIONS 1. The patient is discharged to a long term facility. 2. Follow up with primary care provider in 2 weeks. 3. Activity as tolerated. Time spent on discharge greater than 30 minutes, including counseling patient and answering questions and concerns. Thank you for the opportunity to participate in the care of the patient and all his medical needs. JOB #: [id number] EXT JOB #:[id number]
== END 2016-08-06 15:22 | DRG 183 ==
LOC: EDUNIT# → ED 01:40 → SUPCPDRO 01:45 → OBSVTOIN 03:33 → INTOOBSV 03:33 → MS 03:33 → OBSVTOIN 08-04 10:34 → MS 08-04 14:49 → UNDODISIN 08-06 15:22
PROVIDERS: ADMIT Internal Medicine; ATTEND Physician Assistant
DX: S22.42XA Multiple fractures of ribs, left side, initial encounter for closed fracture (principal); J18.9 Pneumonia, unspecified organism; S27.321A Contusion of lung, unilateral, initial encounter; W01.0XXA Fall on same level from slipping, tripping and stumbling without subsequent striking against object, initial encounter; Y93.E8 Activity, other personal hygiene; E11.22 Type 2 diabetes mellitus with diabetic chronic kidney disease; I12.9 Hypertensive chronic kidney disease with stage 1 through stage 4 chronic kidney disease, or unspecified chronic kidney disease; N18.4 Chronic kidney disease, stage 4 (severe); D63.1 Anemia in chronic kidney disease; E86.0 Dehydration; M25.512 Pain in left shoulder; E78.2 Mixed hyperlipidemia; Y92.002 Bathroom of unspecified non-institutional (private) residence as the place of occurrence of the external cause; Z87.891 Personal history of nicotine dependence; R09.02 Hypoxemia; Z91.81 History of falling; Z60.2 Problems related to living alone; Y95 Nosocomial condition; I10 Essential (primary) hypertension; E78.5 Hyperlipidemia, unspecified; D50.9 Iron deficiency anemia, unspecified; E11.9 Type 2 diabetes mellitus without complications; K59.09 Other constipation; Z66 Do not resuscitate; Z85.528 Personal history of other malignant neoplasm of kidney; Z90.5 Acquired absence of kidney
CPT/HCPCS: 36415; 71250; 80053; 81001; 83735; 84100; 85025; 87086; 96372; 96374; 96376; 99284; 99285

== ENCOUNTER 2016-09-03 08:27 | Outpatient (CLI) | payer MEDICARE, OTHER ==
[2016-09-03 16:02] LABS: BASOPHILS # (AUTO) 0.1 10^3/uL (0.0-0.1); BASOPHILS % (AUTO) 0.9 %; EOSINOPHILS # (AUTO) 0.2 10^3/uL (0.0-0.7); EOSINOPHILS % (AUTO) 2.2 %; HCT - HEMATOCRIT 31.3 % (42.0-52.0); HGB - HEMOGLOBIN 10.5 g/dL (14.0-18.0); LYMPHOCYTES # (AUTO) 1.7 10^3/uL (1.5-3.5); LYMPHOCYTES % (AUTO) 20.5 %; MEAN CORPUSCULAR HEMOGLOBIN 30.8 pg (27.0-31.0); MEAN CORPUSCULAR HGB CONC 33.7 g/dL (32.0-36.0); MEAN CORPUSCULAR VOLUME 91.5 fL (80.0-94.0); MEAN PLATELET VOLUME 7.9 fL (7.4-11.4); MONOCYTES % (AUTO) 12.4 %; NEUTROPHILS # (AUTO) 5.3 10^3/uL (1.5-6.6); NUCLEATED RED BLOOD CELLS AUTO 0.1 /100WBC; RED BLOOD COUNT 3.42 10^6/uL (4.70-6.10); RED CELL DISTRIBUTION WIDTH 14.2 % (12.0-15.0); UNCORRECTED WHITE BLOOD COUNT 8.2 x10^3/uL; WHITE BLOOD COUNT 8.2 x10^3/uL (4.8-10.8)
[2016-09-03 16:07] LABS: CALCIUM 9.2 mg/dL (8.5-10.3); POTASSIUM 4.3 mmol/L (3.5-5.0)
== END 2016-09-03 08:28 | disposition home or self-care (01) ==
LOC: LAB.R 08:27
DX: N18.4 Chronic kidney disease, stage 4 (severe) (principal)
CPT/HCPCS: 80048; 85025

== ENCOUNTER 2016-09-22 12:12 | Outpatient (CLI) | payer MEDICARE, OTHER ==
[2016-09-22 13:17] LABS: CALCIUM 9.1 mg/dL (8.5-10.3); CREATININE 3.9 mg/dL (0.6-1.2); POTASSIUM 4.5 mmol/L (3.5-5.0)
== END 2016-09-22 12:13 | disposition home or self-care (01) ==
LOC: LAB.R 12:12
DX: I10 Essential (primary) hypertension (principal)
CPT/HCPCS: 80048

== ENCOUNTER 2017-02-02 10:33 | Outpatient (CLI) | payer MEDICARE, OTHER ==
--- NOTE | 2017-02-02 11:57 | XRAY Report ---
RIGHT KNEE, THREE VIEWS: 02/02/2017 HISTORY: Pain. FINDINGS: The patient is status post right total knee arthroplasty. No evidence of hardware failure or loosening. No fracture, malalignment, or joint effusion. Minimal vascular calcification present . IMPRESSION: RIGHT TOTAL KNEE ARTHROPLASTY WITHOUT UNEXPECTED FINDINGS. JOB #: [id number] EXT JOB #:[id number]
== END 2017-02-02 10:34 | disposition home or self-care (01) ==
LOC: DI.N 10:33
PROVIDERS: ATTEND Specialist
DX: S89.91XA Unspecified injury of right lower leg, initial encounter (principal)

== ENCOUNTER 2017-03-05 11:35 | Outpatient (CLI) | payer MEDICARE, OTHER ==
[2017-03-05 12:18] LABS: BASOPHILS % (AUTO) 0.4 %; EOSINOPHILS # (AUTO) 0.1 10^3/uL (0.0-0.7); EOSINOPHILS % (AUTO) 0.7 %; HGB - HEMOGLOBIN 10.3 g/dL (14.0-18.0); LYMPHOCYTES # (AUTO) 1.3 10^3/uL (1.5-3.5); LYMPHOCYTES % (AUTO) 13.9 %; MEAN CORPUSCULAR HEMOGLOBIN 30.5 pg (27.0-31.0); MEAN CORPUSCULAR HGB CONC 33.7 g/dL (32.0-36.0); MEAN CORPUSCULAR VOLUME 90.3 fL (80.0-94.0); MEAN PLATELET VOLUME 6.6 fL (7.4-11.4); MONOCYTES # (AUTO) 1.2 10^3/uL (0.0-1.0); MONOCYTES % (AUTO) 13.1 %; NEUTROPHILS # (AUTO) 6.8 10^3/uL (1.5-6.6); NEUTROPHILS % (AUTO) 71.9 %; PLT - PLATELET COUNT 230 10^3/uL (130-450); RED BLOOD COUNT 3.38 10^6/uL (4.70-6.10); RED CELL DISTRIBUTION WIDTH 14.7 % (12.0-15.0); WHITE BLOOD COUNT 9.5 x10^3/uL (4.8-10.8)
--- NOTE | 2017-03-05 13:26 | XRAY Report ---
EXAM: CHEST RADIOGRAPHY EXAM DATE: 03/05/2017 12:21 PM. CLINICAL HISTORY: J98.11. Atelectasis on CT chest 08/04/2016. COMPARISON: Two-view chest 07/10/2016.. TECHNIQUE: 2 views. FINDINGS: Lungs/Pleura: Increased interstitial type opacity within left lower lung compared with 07/10/2016 wit hout definite focal consolidation. However, the interval chest CT on 08/04/2016 demonstrated moderate left basilar density suggestive of atelectasis. Some of this presently may be improved compared with that CT exam. No pleural effusion or pneumothorax. Mediastinum: Heart and mediastinal contours are unremarkable. Other: Numerous abdominal surgical clips. Diffuse increased thoracic kyphosis. Healing, mildly displa chema posterior-lateral left sixth and seventh rib fractures. IMPRESSION: 1. Interstitial opacity/infiltrate within the left lower lung is increased compared with the most rec ent chest comparison from 07/10/2016 although a portion is likely improved compared with. Atelectatic -type density on a chest CT from 08/04/2016. 2. Healing left rib fractures. 3. No other definite acute abnormality. [facility] The call report notification system was initiated by Dr. Liam Robertson at 13:11 hrs on 03/05/17. The above findings were discussed with Dr Micheline Dr by Dr. Liam Robertson at 13:25 hrs on 03/05/17. Referring Provider Line: [phone] SITE ID: [id number]
[2017-03-05 14:27] LABS: CALCIUM 8.9 mg/dL (8.5-10.3); CREATININE 5.2 mg/dL (0.6-1.2)
== END 2017-03-05 11:36 | disposition home or self-care (01) ==
LOC: DI 11:35
PROVIDERS: ATTEND Specialist
DX: J98.11 Atelectasis (principal); J18.9 Pneumonia, unspecified organism
CPT/HCPCS: 36415; 71046; 80048; 85025

== ENCOUNTER 2017-03-25 15:07 | Outpatient (CLI) | payer MEDICARE, OTHER ==
[2017-03-25 15:41] LABS: CALCIUM 8.7 mg/dL (8.5-10.3); CREATININE 5.3 mg/dL (0.6-1.2)
== END 2017-03-25 15:08 | disposition home or self-care (01) ==
LOC: LAB 15:07
PROVIDERS: ATTEND Internal Medicine Nephrology
DX: N05.9 Unspecified nephritic syndrome with unspecified morphologic changes (principal)
CPT/HCPCS: 36415; 80048

== ENCOUNTER 2017-04-04 16:21 | Outpatient (CLI) | payer MEDICARE, OTHER | END 2017-04-04 16:22 | disposition short-term general hospital (02) | LOC: EMS 16:21 | PROVIDERS: ATTEND Surgery | DX: R46.4 Slowness and poor responsiveness (principal) | CPT/HCPCS: A0425; A0427 ==

== ENCOUNTER 2017-05-03 08:19 | Outpatient (CLI) | payer MEDICARE, OTHER | END 2017-05-03 08:20 | disposition short-term general hospital (02) | LOC: EMS 08:19 | PROVIDERS: ATTEND Surgery | DX: R07.9 Chest pain, unspecified (principal) | CPT/HCPCS: A0425; A0427 ==

== ENCOUNTER 2017-08-09 13:34 | Outpatient (CLI) | payer MEDICARE, OTHER | END 2017-08-09 13:35 | disposition critical access hospital (66) | LOC: EMS 13:34 | PROVIDERS: ATTEND Surgery | DX: M54.9 Dorsalgia, unspecified (principal); R07.81 Pleurodynia; M25.551 Pain in right hip; M25.561 Pain in right knee; M79.89 Other specified soft tissue disorders; W06.XXXA Fall from bed, initial encounter; Y92.032 Bedroom in apartment as the place of occurrence of the external cause | CPT/HCPCS: A0425; A0429 ==

== ENCOUNTER 2017-08-09 13:49 | Emergency (ER) | payer MEDICARE, OTHER ==
--- NOTE | 2017-08-09 14:17 | ED Physician Documentation ---
History of Present Illness - Stated complaint Stated Complaint: FALL - Chief complaint Chief Complaint: General - History obtained from History obtained from: Patient, Family - History of Present Illness Timing: Today - Additonal information Additional information: 86-year-old male on dialysis was in bed and he slid out of the bed and fell onto the floor at about 2:00 in the morning. He remained on the floor until 8 AM when his son-in-law showed up to the house. They were able to help the patient back into the bed and this afternoon at about 1 PM he still was not able to sit up in bed without assistance and they called the ambulance for transport to the hospital for evaluation. The patient states that he feels weak. He does feel that he has injured his back in this fall as well as his right wrist. He acknowledges a slight cough. He acknowledges weakness. He is supposed to have dialysis done today and he has missed his appointment. He does know that he is able to miss a day of dialysis periodically. He has recently had a fistula placed and this is maturing. He has a lot of swelling to the left arm. Review of Systems Constitutional: reports: Chills, Fatigue, Sweats. denies: Fever Eyes: denies: Decreased vision Ears: denies: Ear pain Nose: denies: Rhinorrhea / runny nose, Congestion Throat: denies: Sore throat Cardiac: denies: Chest pain / pressure, Palpitations Respiratory: reports: Cough. denies: Dyspnea GI: denies: Abdominal Pain, Nausea, Vomiting, Constipation, Diarrhea : denies: Dysuria, Frequency Skin: denies: Rash Musculoskeletal: reports: Back pain, Extremity pain, Joint pain. denies: Neck pain Neurologic: reports: Generalized weakness. denies: Focal weakness, Numbness PD PAST MEDICAL HISTORY - Past Medical History Cardiovascular: Hypertension, High cholesterol Respiratory: None Endocrine/Autoimmune: Type 2 diabetes GI: GERD, Ulcers : Other HEENT: Chronic vision loss Psych: None Musculoskeletal: Osteoarthritis Derm: None - Past Surgical History Past Surgical History: Yes General: Appendectomy Ortho: Knee replacement Neuro: Craniotomy HEENT: Tonsil/Adenoidectomy - Present Medications Home Medications: Ambulatory Orders Medication Instructions Recorded Confirmed Atorvastatin Calcium [Lipitor] 20 mg PO QPM 02/01/13 08/02/16 Cholecalciferol (Vitamin D3) 2,000 unit PO DAILY 08/02/16 08/02/16 [Vitamin D3] Cyclobenzaprine HCl 10 mg PO QPM PRN 08/02/16 08/02/16 Ferrous Sulfate 325 mg PO DAILYWM 08/02/16 08/02/16 Fexofenadine HCl 180 mg PO DAILY 08/02/16 08/02/16 Triamcinolone Acetonide 1 applic TOP DAILY PRN 08/02/16 08/02/16 Acetaminophen [Tylenol] 650 mg PO Q4HR PRN #0 tablet 08/06/16 Amlodipine Besylate 10 mg PO DAILY #30 tablet 08/06/16 Docusate Sodium 250Mg Capsule 250 - 500 mg PO DAILY capsule 08/06/16 [Colace 250Mg Capsule] Levofloxacin [Levaquin] 750 mg PO DAILY #10 tablet 08/06/16 Lidocaine Patch 5% [Lidoderm Patch] 1 patch TOP DAILY #30 patch 08/06/16 Polyethylene Glycol 3350 [Miralax] 17 gm PO DAILY packet 08/06/16 Senna [Senokot] 8.6 - 17.2 mg PO DAILY tablet 08/06/16 oxyCODONE [Roxicodone] 5 mg PO Q4HR PRN #20 tablet 08/06/16 - Allergies Allergies/Adverse Reactions: Allergies Allergy/AdvReac Type Severity Reaction Status Date / Time niacin Allergy Severe Hives Verified 08/09/17 14:02 - Social History Does the pt smoke?: No Smoking Status: Never smoker Does the pt drink ETOH?: No Does the pt have substance abuse?: No - Immunizations Immunizations are current?: Yes - POLST Patient has POLST: No POLST Status: DNR PD ED PE NORMAL - Vitals Vital signs reviewed: Yes (normal ) - General General: Alert and oriented X 3, Well developed/nourished, Other (The patient is lying flat and has delay in execution of motor commands. He speaks clearly with little latency. ) - HEENT HEENT: PERRL, EOMI, Other (There is an abrasion to the left parietal scalp (not on coumadin)) - Neck Neck: Supple, no meningeal sign, No bony TTP - Cardiac Cardiac: RRR, No murmur - Respiratory Respiratory: No respiratory distress, Other (rhonchi in the left base. ) - Abdomen Abdomen: Soft, Non tender - Back Back: No CVA TTP, Other (point tenderness to the upper lumbar spine midline. ) - Derm Derm: Normal color, Warm and dry, No rash - Extremities Extremities: No deformity, Other (There is marked swelling of the left arm and forearm with edema and erythema. The area is not particulalry sensitive. There is no palpable thrill. distal n/v is intact. The right wrist is with tenderness to the dorsal aspect of the radius. ) - Neuro Neuro: Alert and oriented X 3, No motor deficit, No sensory deficit, Normal speech Eye Opening: Spontaneous Motor: Obeys Commands Verbal: Oriented GCS Score: 15 - Psych Psych: Normal mood, Normal affect Results - Vitals Vitals: Vital Signs - 24 hr 08/09/17 08/09/17 20:20 21:04 Temperature 36.9 C Heart Rate 64 67 Respiratory 13 17 Rate Blood Pressure 121/65 145/68 H O2 Saturation 93 93 Oxygen O2 Source [] Nasal cannula O2 Source [] Room air O2 Source Room air - Labs Labs: Laboratory Tests 08/09/17 08/09/17 08/09/17 14:20 14:20 14:20 WBC 14.5 H RBC 3.65 L Hgb 10.9 L Hct 34.1 L MCV 93.5 MCH 30.0 MCHC 32.1 RDW 17.9 H Plt Count 130 MPV 8.2 Neut # (Auto) 11.6 H Lymph # (Auto) 1.3 L [place] # (Auto) 1.5 H Eos # (Auto) 0.0 Baso # (Auto) 0.0 Absolute Nucleated RBC 0.00 Nucleated RBC % 0.0 Sodium 135 Potassium 5.2 H Chloride 103 Carbon Dioxide 22 Anion Gap 10.0 BUN 66 H Creatinine 6.9 H Estimated GFR (MDRD) 8 L Glucose 156 H Lactic Acid Calcium 9.4 Total Bilirubin 0.7 AST 31 ALT 24 Alkaline Phosphatase 81 Troponin I 0.06 Total Protein 7.6 Albumin 3.1 L Globulin 4.5 H Albumin/Globulin Ratio 0.7 L Lipase 39 Urine Color Urine Clarity Urine pH Ur Specific [place] Urine Protein Urine Glucose (UA) Urine Ketones Urine Occult Blood Urine Nitrite Urine Bilirubin Urine Urobilinogen Ur Leukocyte Esterase Urine RBC Urine WBC Ur Squamous Epith Cells Urine Bacteria Ur Microscopic Review Urine Culture Comments 08/09/17 08/09/17 14:20 20:35 WBC RBC Hgb Hct MCV MCH MCHC RDW Plt Count MPV Neut # (Auto) Lymph # (Auto) [place] # (Auto) Eos # (Auto) Baso # (Auto) Absolute Nucleated RBC Nucleated RBC % Sodium Potassium Chloride Carbon Dioxide Anion Gap BUN Creatinine Estimated GFR (MDRD) Glucose Lactic Acid 1.1 Calcium Total Bilirubin AST ALT Alkaline Phosphatase Troponin I Total Protein Albumin Globulin Albumin/Globulin Ratio Lipase Urine Color YELLOW Urine Clarity CLEAR Urine pH 7.0 Ur Specific [place] 1.020 Urine Protein >=300 Urine Glucose (UA) NEGATIVE Urine Ketones NEGATIVE Urine Occult Blood TRACE-INTA Urine Nitrite NEGATIVE Urine Bilirubin NEGATIVE Urine Urobilinogen 0.2 (NORMAL) Ur Leukocyte Esterase NEGATIVE Urine RBC 0-5 Urine WBC 0-3 Ur Squamous Epith Cells NONE SEEN Urine Bacteria None Seen Ur Microscopic Review INDICATED Urine Culture Comments NOT INDICATED - Rads (name of study) lumbar spine Radiology: Prelim report reviewed (Impression: No evidence of fracture or dislocation.), EMP read indepedently, See rad report 2 view chest Radiology: Prelim report reviewed (Impression: 1. Clear hypoinflated lungs.2. Normal heart size for technique. 3. No acute fracture identified. 4. Right IJ dialysis catheter to the cavoatrial junction with no visible pneumothorax.), EMP read indepedently, See rad report wrist L Radiology: Prelim report reviewed, EMP read indepedently, See rad report Procedures - IVC sono (time) 1405 Bedside IVC sono: IVC measures (cm) (1.1), IVC collapsed c insp (cm) (complete) , Dehydration (est 1+ liter deficit) PD MEDICAL DECISION MAKING - ED course Complexity details: reviewed old records, reviewed results, re-evaluated patient , considered differential, d/w patient, d/w family ED course: 86-year-old male on dialysis is reached the emergency department today after sliding out of bed and spending the night on the floor. He is complaining of some pain in his back and in his right wrist and on examination has some rhonchi in his left base of his chest. He appears weak and is difficult to sit up in bed by himself. On interrogation the inferior vena cava he is found to be dehydrated. IV is begun saline is introduced and laboratories are drawn x- rays are obtained. The patient is hydrated with one liter of saline and he is road tested and he fails the road test. He is not able to walk more than one step without sitting back down. Dr. Merlos is consulted in the case for transfer to a facility that can do dialysis. He will need the left arm evaluated as well I am concerned this may be a source of infection as there is a lot of swelling and erythema that the patient states has become worse over the past [address] BILLY Merlos is consulted in the case and recommends transfer to [facility] where his surgery was done and they have IR if needed. - Sepsis Event Vital Signs: Vital Signs - 24 hr 08/09/17 08/09/17 20:20 21:04 Temperature 36.9 C Heart Rate 64 67 Respiratory 13 17 Rate Blood Pressure 121/65 145/68 H O2 Saturation 93 93 Oxygen O2 Source [] Nasal cannula O2 Source [] Room air O2 Source Room air Departure - Departure Disposition: 02 Transfer Acute Care Hosp Clinical Impression: Cellulitis of arm, left, Weakness Condition: Fair Discharge Date/Time: 08/09/17 21:35
[2017-08-09 14:29] LABS: BASOPHILS % (AUTO) 0.2 %; EOSINOPHILS % (AUTO) 0.1 %; HGB - HEMOGLOBIN 10.9 g/dL (14.0-18.0); LYMPHOCYTES # (AUTO) 1.3 10^3/uL (1.5-3.5); MEAN CORPUSCULAR HGB CONC 32.1 g/dL (32.0-36.0); MEAN CORPUSCULAR VOLUME 93.5 fL (80.0-94.0); MEAN PLATELET VOLUME 8.2 fL (7.4-11.4); MONOCYTES # (AUTO) 1.5 10^3/uL (0.0-1.0); MONOCYTES % (AUTO) 10.3 %; NEUTROPHILS # (AUTO) 11.6 10^3/uL (1.5-6.6); NEUTROPHILS % (AUTO) 80.4 %; PLT - PLATELET COUNT 130 10^3/uL (130-450); RED BLOOD COUNT 3.65 10^6/uL (4.70-6.10); RED CELL DISTRIBUTION WIDTH 17.9 % (12.0-15.0); WHITE BLOOD COUNT 14.5 x10^3/uL (4.8-10.8)
[2017-08-09 14:42] LABS: ALBUMIN 3.1 g/dL (3.2-5.5); ALBUMIN/GLOBULIN RATIO 0.7 (1.0-2.2); BILIRUBIN,TOTAL 0.7 mg/dL (0.2-1.0); CALCIUM 9.4 mg/dL (8.5-10.3); CREATININE 6.9 mg/dL (0.6-1.2); TOTAL PROTEIN 7.6 g/dL (6.7-8.2)
[2017-08-09] MEDS ORDERED: SODIUM CHLORIDE 0.9% 1,000 ML IV ONE (15:14)
--- NOTE | 2017-08-09 16:10 | XRAY Report ---
Procedure Date: 08/09/2017 Accession Number: [id number] / [id number] Procedure: XR - Wrist 4 View RT CPT Code: FULL RESULT: EXAM: RIGHT WRIST RADIOGRAPHY EXAM DATE: 08/09/2017 03:38 PM. CLINICAL HISTORY: Wrist pain COMPARISON: None. TECHNIQUE: 4 views. FINDINGS: Bones: No fracture or focal bony lesion. Joints: No evidence of dislocation. There is lateral carpal joint space narrowing. There is moderate degenerative disease at the first carpometacarpal joint. Soft Tissues: No unexpected soft tissue findings. IMPRESSION: 1. No evidence of fracture or dislocation. 2. 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 RADIA
--- NOTE | 2017-08-09 16:10 | XRAY Report ---
Procedure Date: 08/09/2017 Accession Number: [id number] / [id number] Procedure: XR - Lumbar Spine 2 View CPT Code: FULL RESULT: EXAM: LUMBOSACRAL SPINE RADIOGRAPHY EXAM DATE: 08/09/2017 03:38 PM. CLINICAL HISTORY: Back pain COMPARISONS: None. TECHNIQUE: 2 views. FINDINGS: Alignment: No evidence of dislocation. Bones: No fractures or focal bony lesions. Disks/Facets: There is mild lower lumbar facet arthrosis and disk space narrowing. Sacroiliac Joints: Unremarkable. Soft Tissues: No unexpected findings. IMPRESSION: No evidence of fracture or dislocation. RADIA
--- NOTE | 2017-08-09 16:10 | XRAY Report ---
Procedure Date: 08/09/2017 Accession Number: [id number] / [id number] Procedure: XR - Chest 2 View X-Ray CPT Code: 56983 FULL RESULT: EXAM: CHEST RADIOGRAPHY EXAM DATE: 08/09/2017 02:00 PM. CLINICAL HISTORY: Left base rhonchi. Fall last night. COMPARISON: 03/05/2017. TECHNIQUE: 2 views. FINDINGS: Lungs/Pleura: No focal opacities evident. No pleural effusion. No pneumothorax. Hypoinflated lungs. Mediastinum: Heart and mediastinal contours are unremarkable. Other: Right IJ dialysis catheter extends to the cavoatrial junction. Chronic left rib fractures noted. No acute fracture is identified. IMPRESSION: 1. Clear hypoinflated lungs. 2. Normal heart size for technique. 3. No acute fracture identified. 4. Right IJ dialysis catheter to the cavoatrial junction with no visible pneumothorax. RADIA
[2017-08-09] MEDS ORDERED: cefTRIAXone 1 GM in SODIUM CHLORIDE 0.9% MINIBAG 100 ML IV STA (17:17)
[2017-08-09] MEDS ORDERED: VANCOMYCIN INJ 1.5 GM in SODIUM CHLORIDE 0.9% 500 ML IV STA (19:44)
--- NOTE | 2017-08-09 19:45 | ED Physician Documentation ---
ED Addendum - Addendum Addendum: 08/09/17 19:44 Patient signed out to me awaiting [facility] to call back for potential transfer in this 86-year-old gentleman who is dialyzed Tuesday, , Tuesday and missed dialysis today who has left arm cellulitis at the site of of maturing shunt. He did receive Rocephin by Dr. Mustafa. He has a white count of 14.5 and a potassium of 5.[address] Mustafa gave him a liter of saline. He is quite weak. I spoke with the charge nurse at [facility] and she will try to have a hospitalist call me back, I added on blood cultures and vancomycin. 08/09/17 20:[address] Zenaida Sommer, hospitalist at [facility], who accepts in transfer
[2017-08-09 20:44] LABS: BILIRUBIN,URINE NEGATIVE (NEGATIVE); GLUCOSE, URINE (UA) NEGATIVE (NEGATIVE); KETONES,URINE (UA) NEGATIVE (NEGATIVE); LEUKOCYTE ESTERASE, URINE NEGATIVE (NEGATIVE); NITRITE,URINE NEGATIVE (NEGATIVE); OCCULT BLOOD,URINE TRACE-INTA (NEGATIVE); PROTEIN,URINE >=300 mg/dL (NEGATIVE); UROBILINOGEN,URINE 0.2 (NORMAL) E.U./dL (NORMAL)
[2017-08-09 20:51] LABS: CLARITY,URINE CLEAR (CLEAR)
[2017-08-09 21:02] LABS: BACTERIA,URINE None Seen /HPF (None Seen); RBC,URINE 0-5 /HPF (0-5); SQUAMOUS EPITHELIAL CELL,UR NONE SEEN (<= Few)
[2017-08-09 21:07] VITALS: BP 145/68
== END 2017-08-09 21:35 | disposition short-term general hospital (02) ==
LOC: EDUNIT# → ED 13:49
DX: L03.114 Cellulitis of left upper limb (principal); R53.1 Weakness; S00.01XA Abrasion of scalp, initial encounter; E86.0 Dehydration; I10 Essential (primary) hypertension; W06.XXXA Fall from bed, initial encounter; Y92.003 Bedroom of unspecified non-institutional (private) residence as the place of occurrence of the external cause; Z96.89 Presence of other specified functional implants
CPT/HCPCS: 36415; 71046; 72100; 73110; 80053; 81001; 83605; 83690; 84484; 85025; 87040; 96365; 96367; 99285; J3370; 81003; 87086; 99284

== ENCOUNTER 2017-08-09 21:40 | Outpatient (CLI) | payer MEDICARE, OTHER | END 2017-08-09 21:41 | disposition short-term general hospital (02) | LOC: EMS 21:40 | PROVIDERS: ATTEND Surgery | DX: L03.114 Cellulitis of left upper limb (principal); R53.1 Weakness; Z99.2 Dependence on renal dialysis | CPT/HCPCS: A0425; A0426 ==

== ENCOUNTER 2017-11-01 10:24 | Emergency (ER) | payer MEDICARE, OTHER ==
[2017-11-01 11:09] LABS: BASOPHILS # (AUTO) 0.1 10^3/uL (0.0-0.1); BASOPHILS % (AUTO) 0.7 %; EOSINOPHILS % (AUTO) 0.1 %; HGB - HEMOGLOBIN 12.1 g/dL (14.0-18.0); LYMPHOCYTES # (AUTO) 1.1 10^3/uL (1.5-3.5); LYMPHOCYTES % (AUTO) 11.4 %; MEAN CORPUSCULAR HEMOGLOBIN 32.3 pg (27.0-31.0); MEAN CORPUSCULAR HGB CONC 33.3 g/dL (32.0-36.0); MEAN PLATELET VOLUME 7.9 fL (7.4-11.4); MONOCYTES # (AUTO) 1.2 10^3/uL (0.0-1.0); MONOCYTES % (AUTO) 13.2 %; NEUTROPHILS # (AUTO) 6.9 10^3/uL (1.5-6.6); NEUTROPHILS % (AUTO) 74.6 %; PLT - PLATELET COUNT 180 10^3/uL (130-450); RED BLOOD COUNT 3.75 10^6/uL (4.70-6.10); RED CELL DISTRIBUTION WIDTH 18.1 % (12.0-15.0); WHITE BLOOD COUNT 9.2 x10^3/uL (4.8-10.8)
[2017-11-01 11:27] LABS: ALBUMIN 3.7 g/dL (3.2-5.5); ALBUMIN/GLOBULIN RATIO 0.8 (1.0-2.2); BILIRUBIN,TOTAL 0.8 mg/dL (0.2-1.0); CALCIUM 10.1 mg/dL (8.5-10.3); TOTAL PROTEIN 8.5 g/dL (6.7-8.2)
[2017-11-01 11:29] LABS: CREATININE 8.4 mg/dL (0.6-1.2)
--- NOTE | 2017-11-01 11:46 | XRAY Report ---
Reason: soa Procedure Date: 11/01/2017 Accession Number: [id number] / [id number] Procedure: XR - Chest 2 View X-Ray CPT Code: 13013 FULL RESULT: EXAM: CHEST RADIOGRAPHY EXAM DATE: 11/01/2017 11:01 AM. CLINICAL HISTORY: Shortness of air. COMPARISON: 08/09/2017. TECHNIQUE: 2 views. FINDINGS: Lungs/Pleura: Interstitium is prominent and there are coarse left greater than right bibasilar opacities. No pneumothorax. No pleural effusions. Mediastinum: Heart size is stable. Aorta is mildly tortuous. Aortic atherosclerosis. Other: Right IJ catheters are unchanged. Degenerative changes of the thoracic spine. Healed left-sided rib fractures. Upper abdominal surgical clips are again seen. Anterior wedging of at least lower thoracic vertebral bodies is again seen. IMPRESSION: 1. Coarse left greater than right bibasilar opacities without significant change likely chronic parenchymal changes, stable. 2. No new focal abnormality RADIA
--- NOTE | 2017-11-01 13:38 | ED Physician Documentation ---
History of Present Illness - Stated complaint Stated Complaint: FEVER - Chief complaint Chief Complaint: General - History obtained from History obtained from: Patient, Family - History of Present Illness Timing: Today Pain level max: 5 Pain level now: 4 Improved by: rest Worsened by: movement - Additonal information Additional information: Patient is an 87-year-old male who is currently on dialysis for chronic kidney failure. He missed his dialysis this morning as he was not feeling well. Has had intermittent diarrhea for the past several weeks. Also fell out of bed approximately 2 months ago and is still having pain in his bilateral hands. Had an AV fistula placed in the left arm approximately 4 months ago. Has had swelling to that arm since the operation and occasional redness. Family states that he had a fever last night. He has been coughing up sputum, but no more than usual. He does still make small amounts of urine. States that every time he has dialysis he is placed on oxygen, but does not use oxygen at home Review of Systems Ten Systems: 10 systems reviewed and negative Constitutional: denies: Fever, Chills Ears: denies: Ear pain Nose: denies: Rhinorrhea / runny nose, Congestion Throat: denies: Sore throat Cardiac: denies: Chest pain / pressure Respiratory: denies: Wheezing GI: reports: Diarrhea. denies: Abdominal Pain, Vomiting, Hematemesis, Bloody / black stool Skin: denies: Rash Musculoskeletal: denies: Neck pain, Back pain Neurologic: denies: Headache PD PAST MEDICAL HISTORY - Past Medical History Cardiovascular: Hypertension, High cholesterol Respiratory: None Endocrine/Autoimmune: Type 2 diabetes GI: GERD, Ulcers : Other HEENT: Chronic vision loss Psych: None Musculoskeletal: Osteoarthritis Derm: None - Past Surgical History Past Surgical History: Yes General: Appendectomy Ortho: Knee replacement Neuro: Craniotomy HEENT: Tonsil/Adenoidectomy - Present Medications Home Medications: Ambulatory Orders Medication Instructions Recorded Confirmed Atorvastatin Calcium [Lipitor] 20 mg PO QPM 02/01/13 08/02/16 Cholecalciferol (Vitamin D3) 2,000 unit PO DAILY 08/02/16 08/02/16 [Vitamin D3] Cyclobenzaprine HCl 10 mg PO QPM PRN 08/02/16 08/02/16 Ferrous Sulfate 325 mg PO DAILYWM 08/02/16 08/02/16 Fexofenadine HCl 180 mg PO DAILY 08/02/16 08/02/16 Triamcinolone Acetonide 1 applic TOP DAILY PRN 08/02/16 08/02/16 Acetaminophen [Tylenol] 650 mg PO Q4HR PRN #0 tablet 08/06/16 Amlodipine Besylate 10 mg PO DAILY #30 tablet 08/06/16 Docusate Sodium 250Mg Capsule 250 - 500 mg PO DAILY capsule 08/06/16 [Colace 250Mg Capsule] Levofloxacin [Levaquin] 750 mg PO DAILY #10 tablet 08/06/16 Lidocaine Patch 5% [Lidoderm Patch] 1 patch TOP DAILY #30 patch 08/06/16 Polyethylene Glycol 3350 [Miralax] 17 gm PO DAILY packet 08/06/16 Senna [Senokot] 8.6 - 17.2 mg PO DAILY tablet 08/06/16 oxyCODONE [Roxicodone] 5 mg PO Q4HR PRN #20 tablet 08/06/16 - Allergies Allergies/Adverse Reactions: Allergies Allergy/AdvReac Type Severity Reaction Status Date / Time niacin Allergy Severe Hives Verified 11/01/17 10:38 - Social History Does the pt smoke?: No Smoking Status: Never smoker Does the pt drink ETOH?: No Does the pt have substance abuse?: No - Immunizations Immunizations are current?: Yes - POLST Patient has POLST: No POLST Status: DNR PD ED PE NORMAL - Vitals Vital signs reviewed: Yes - General General: Alert and oriented X 3, No acute distress - HEENT HEENT: Moist mucous membranes - Neck Neck: Supple, no meningeal sign - Cardiac Cardiac: RRR - Respiratory Respiratory: No respiratory distress, Clear bilaterally - Abdomen Abdomen: Soft, Non tender, Non distended - Derm Derm: Warm and dry - Extremities Extremities: Other (Left upper extremity - Palpable thrill in the left AC. The left arm is also darker in color than the right arm. Neurovascularly intact. Patient also has mild diffuse tenderness over the bilateral hands. No bony deformity) - Neuro Neuro: Alert and oriented X 3 Results - Vitals Vitals: Vital Signs - 24 hr 11/01/17 11/01/17 11/01/17 10:32 13:51 14:27 Temperature 36.8 C 36.5 C Heart Rate 58 L 56 L 58 L Respiratory 16 18 14 Rate Blood Pressure 126/56 L 127/62 134/69 H O2 Saturation 99 97 99 Oxygen O2 Source [] Nasal cannula O2 Source [] Room air O2 Source Room air - EKG (time done) 1048 Rate: Rate (enter#) (60) Rhythm: NSR [place]: Normal Intervals: Normal [place] QRS: Normal Ischemia: Normal ST segments - Labs Labs: Laboratory Tests 11/01/17 11/01/17 11/01/17 11:02 11:02 11:02 WBC 9.2 RBC 3.75 L Hgb 12.1 L Hct 36.3 L MCV 97.0 H MCH 32.3 H MCHC 33.3 RDW 18.1 H Plt Count 180 MPV 7.9 Neut # (Auto) 6.9 H Lymph # (Auto) 1.1 L [place] # (Auto) 1.2 H Eos # (Auto) 0.0 Baso # (Auto) 0.1 Absolute Nucleated RBC 0.00 Nucleated RBC % 0.0 Sodium 134 L Potassium 6.0 H* Chloride 99 L Carbon Dioxide 20 L Anion Gap 15.0 H BUN 75 H Creatinine 8.4 H* Estimated GFR (MDRD) 6 L Glucose 152 H Calcium 10.1 Total Bilirubin 0.8 AST 19 ALT 22 Alkaline Phosphatase 78 Troponin I < 0.04 Total Protein 8.5 H Albumin 3.7 Globulin 4.8 H Albumin/Globulin Ratio 0.8 L Lipase 40 - Rads (name of study) cxr Radiology: Prelim report reviewed, EMP read contemporaneously, See rad report ( Course left greater than right bibasilar opacities without significant change likely chronic parenchymal change. Stable. No new focal abnormality) B hand xray Radiology: Prelim report reviewed, EMP read contemporaneously, See rad report ( No acute bony abnormality. 2. Moderate degenerative changes both first carpometacarpal joint. 3. Moderate inflammatory arthropathy left second and third interphalangeal joints. 4. Mild noninflammatory arthropathy throughout the rest of the hands and wrists. ) PD MEDICAL DECISION MAKING - ED course Complexity details: reviewed results, re-evaluated patient, considered differential, d/w patient, d/w family, d/w library sales consultant ([id number] -Dr. Sutherland nephrology , who will try to arrange dialysis) ED course: Patient is an 87-year-old male who presents to the emergency department bilateral wrist pain after a fall approximately a month ago. no acute xray findings. Potassium is elevated, but no EKG changes. Dr. Sutherland arranged dialysis today.Patient discharged with family for dialysis. Patient and family counseled regarding signs and symptoms for which I believe and urgent re- evaluation would be necessary. Patient with good understanding of and agreement to plan and is comfortable going home at this time This document was made in part using voice recognition software. While efforts are made to proofread this document, sound alike and grammatical errors may occur. - Sepsis Event Vital Signs: Vital Signs - 24 hr 11/01/17 11/01/17 11/01/17 10:32 13:51 14:27 Temperature 36.8 C 36.5 C Heart Rate 58 L 56 L 58 L Respiratory 16 18 14 Rate Blood Pressure 126/56 L 127/62 134/69 H O2 Saturation 99 97 99 Oxygen O2 Source [] Nasal cannula O2 Source [] Room air O2 Source Room air Departure - Departure Disposition: 01 Home, Self Care Clinical Impression: Hyperkalemia Pulmonary edema Qualifiers: Chronicity: chronic Qualified Code(s): J81.1 - Chronic pulmonary edema Condition: Stable Instructions: Hyperkalemia Dc Follow-Up: Hakeem Denise DO [Primary Care Provider] - Within 1 week Comments: You are to go directly to the [facility] for dialysis today at 3pm. Your other tests are normal today. We will call you if the hand xrays are abnormal. Discharge Date/Time: 11/01/17 14:28
[2017-11-01] MEDS ORDERED: FUROSEMIDE 100 MG/10 ML VIAL IVP STA (13:43)
[2017-11-01 14:28] VITALS: BP 134/69
--- NOTE | 2017-11-01 14:28 | XRAY Report ---
Reason: fall, B hand pain Procedure Date: 11/01/2017 Accession Number: [id number] / [id number] Procedure: XR - Hand 3 View BILAT CPT Code: FULL RESULT: EXAMS: 1. Right Hand Radiography 2. Left Hand Radiography EXAM DATE: 11/01/2017 02:08 PM. CLINICAL HISTORY: Bilateral hand pain and edema. COMPARISON: Wrist 4 view right 08/09/2017. TECHNIQUE: 3 views each hand. FINDINGS: Right: Bones: Normal. No fractures or bone lesions. Joints: Moderate degenerative changes first carpometacarpal joint without subluxation. Mild degenerative changes throughout the rest of the wrist and interphalangeal joints without inflammatory component. Soft Tissues: Normal. No soft tissue swelling. Left: Bones: Normal. No fractures or bone lesions. Joints: Moderate degenerative changes first carpometacarpal joint without subluxation. Moderate inflammatory arthropathy without subluxation second and third interphalangeal joints. Mild degenerative changes without inflammatory component throughout the rest of the joints. Soft Tissues: Normal. No soft tissue swelling. IMPRESSION: 1. No acute bony abnormality. 2. Moderate degenerative changes both first carpometacarpal joint. 3. Moderate inflammatory arthropathy left second and third interphalangeal joints. 4. Mild noninflammatory arthropathy throughout the rest of the hands and wrists. RADIA
== END 2017-11-01 14:28 | disposition home or self-care (01) ==
LOC: ED 10:24
DX: E87.5 Hyperkalemia (principal); J81.1 Chronic pulmonary edema; I12.9 Hypertensive chronic kidney disease with stage 1 through stage 4 chronic kidney disease, or unspecified chronic kidney disease; E11.22 Type 2 diabetes mellitus with diabetic chronic kidney disease; N18.9 Chronic kidney disease, unspecified; Z99.2 Dependence on renal dialysis
CPT/HCPCS: 36415; 71046; 73130; 80053; 83690; 84484; 85025; 93005; 96374; 99283; J1940

== ENCOUNTER 2017-11-12 08:03 | Outpatient (CLI) | payer MEDICARE, OTHER | END 2017-11-12 08:04 | disposition short-term general hospital (02) | LOC: EMS 08:03 | PROVIDERS: ATTEND Surgery | DX: R53.1 Weakness (principal); M79.89 Other specified soft tissue disorders | CPT/HCPCS: A0425; A0429 ==

== ENCOUNTER 2018-02-09 15:00 | Outpatient (CLI) | payer MEDICARE, OTHER | END 2018-02-09 15:01 | disposition critical access hospital (66) | LOC: EMS 15:00 | PROVIDERS: ATTEND Surgery | DX: R55 Syncope and collapse (principal); R53.83 Other fatigue | CPT/HCPCS: A0425; A0427 ==

== ENCOUNTER 2018-02-09 15:16 | Emergency (ER) | payer MEDICARE, OTHER ==
[2018-02-09] MEDS ORDERED: SODIUM CHLORIDE 0.9% 1,000 ML IV ONE (15:34)
[2018-02-09 16:10] LABS: BASOPHILS % (AUTO) 0.5 %; EOSINOPHILS # (AUTO) 0.1 10^3/uL (0.0-0.7); EOSINOPHILS % (AUTO) 2.5 %; HGB - HEMOGLOBIN 11.9 g/dL (14.0-18.0); LYMPHOCYTES # (AUTO) 0.7 10^3/uL (1.5-3.5); LYMPHOCYTES % (AUTO) 12.8 %; MEAN CORPUSCULAR HEMOGLOBIN 31.3 pg (27.0-31.0); MEAN CORPUSCULAR HGB CONC 32.6 g/dL (32.0-36.0); MEAN PLATELET VOLUME 7.7 fL (7.4-11.4); MONOCYTES # (AUTO) 0.8 10^3/uL (0.0-1.0); MONOCYTES % (AUTO) 14.2 %; NEUTROPHILS # (AUTO) 3.9 10^3/uL (1.5-6.6); PLT - PLATELET COUNT 143 10^3/uL (130-450); RED BLOOD COUNT 3.81 10^6/uL (4.70-6.10); RED CELL DISTRIBUTION WIDTH 18.3 % (12.0-15.0); WHITE BLOOD COUNT 5.5 x10^3/uL (4.8-10.8)
[2018-02-09 16:15] LABS: ALBUMIN 3.6 g/dL (3.2-5.5); ALBUMIN/GLOBULIN RATIO 0.9 (1.0-2.2); BILIRUBIN,TOTAL 0.6 mg/dL (0.2-1.0); CALCIUM 8.8 mg/dL (8.5-10.3); CREATININE 4.3 mg/dL (0.6-1.2); TOTAL PROTEIN 7.8 g/dL (6.7-8.2)
--- NOTE | 2018-02-09 16:55 | ED Physician Documentation ---
History of Present Illness - Stated complaint Stated Complaint: LETHARGIC - Chief complaint Chief Complaint: Neuro - History obtained from History obtained from: Patient, EMS - Additonal information Additional information: The patient is an 87-year-old male with end-stage renal failure, who underwent dialysis this morning, and presents now via ambulance because of hypotension with an episode of unresponsiveness at home. He had felt dizzy after dialysis. Paramedics found his systolic blood pressure as low as 80 after family member called 911. He has received 250 mL normal saline IV while en route to the hospital, and feels better at this time. He denies fever, chest pain or shortness of breath, nausea or vomiting, acute numbness or weakness. He has a history of generalized weakness following dialysis, and has had one similar episode of passing out postdialysis. Review of Systems Constitutional: denies: Fever Ears: denies: Tinnitus/ringing Nose: denies: Congestion Throat: denies: Sore throat Cardiac: denies: Chest pain / pressure Respiratory: denies: Dyspnea, Cough GI: denies: Abdominal Pain, Nausea, Vomiting : denies: Dysuria, Incontinent Skin: denies: Rash Musculoskeletal: denies: Back pain, Extremity swelling Neurologic: reports: Generalized weakness, Focal weakness, Numbness, Unresp onsive (Briefly.). denies: Headache PD PAST MEDICAL HISTORY - Past Medical History Cardiovascular: Hypertension, High cholesterol Respiratory: None Endocrine/Autoimmune: Type 2 diabetes GI: GERD, Ulcers : Dialysis, Other HEENT: Chronic vision loss Psych: None Musculoskeletal: Osteoarthritis Derm: None - Past Surgical History Past Surgical History: Yes General: Appendectomy Ortho: Knee replacement Neuro: Craniotomy HEENT: Tonsil/Adenoidectomy - Present Medications Home Medications: Ambulatory Orders Medication Instructions Recorded Confirmed Atorvastatin Calcium [Lipitor] 20 mg PO QPM 02/01/13 08/02/16 Cholecalciferol (Vitamin D3) 2,000 unit PO DAILY 08/02/16 08/02/16 [Vitamin D3] Cyclobenzaprine HCl 10 mg PO QPM PRN 08/02/16 08/02/16 Ferrous Sulfate 325 mg PO DAILYWM 08/02/16 08/02/16 Fexofenadine HCl 180 mg PO DAILY 08/02/16 08/02/16 Triamcinolone Acetonide 1 applic TOP DAILY PRN 08/02/16 08/02/16 Acetaminophen [Tylenol] 650 mg PO Q4HR PRN #0 tablet 08/06/16 Docusate Sodium 250Mg Capsule 250 - 500 mg PO DAILY capsule 08/06/16 [Colace 250Mg Capsule] Polyethylene Glycol 3350 [Miralax] 17 gm PO DAILY packet 08/06/16 Senna [Senokot] 8.6 - 17.2 mg PO DAILY tablet 08/06/16 - Allergies Allergies/Adverse Reactions: Allergies Allergy/AdvReac Type Severity Reaction Status Date / Time niacin Allergy Severe Hives Verified 11/01/17 10:38 - Social History Does the pt smoke?: No Smoking Status: Never smoker Does the pt drink ETOH?: No Does the pt have substance abuse?: No - Immunizations Immunizations are current?: Yes - POLST Patient has POLST: No POLST Status: DNR PD ED PE NORMAL - Vitals Vital signs reviewed: Yes (Borderline Borderline hypotension with a blood pressure of 99/59.) - General General: Alert and oriented X 3, Well developed/nourished - HEENT HEENT: Atraumatic, Moist mucous membranes - Neck Neck: Supple, no meningeal sign, No JVD - Cardiac Cardiac: RRR - Respiratory Respiratory: No respiratory distress, Clear bilaterally - Abdomen Abdomen: Soft, Non tender - Back Back: No CVA TTP - Derm Derm: No rash - Extremities Extremities: No edema, No calf tenderness / cord - Neuro Neuro: Alert and oriented X 3, No motor deficit, No sensory deficit Results - Vitals Vitals: Oxygen O2 Source [] Nasal cannula O2 Source [] Room air O2 Source Room air - EKG (time done) 16:13 Rate: Rate (enter#) (59) Rhythm: NSR [place]: Normal Intervals: Normal [place] QRS: Normal Ischemia: T wave inversion (in leads I and aVL.) Compare to prior EKG: Unchanged from prior EKG Computer interpretation: Agree with computer - Labs Labs: Laboratory Tests 02/09/18 02/09/18 15:54 15:54 WBC 5.5 RBC 3.81 L Hgb 11.9 L Hct 36.6 L MCV 96.0 H MCH 31.3 H MCHC 32.6 RDW 18.3 H Plt Count 143 MPV 7.7 Neut # (Auto) 3.9 Lymph # (Auto) 0.7 L [place] # (Auto) 0.8 Eos # (Auto) 0.1 Baso # (Auto) 0.0 Absolute Nucleated RBC 0.00 Nucleated RBC % 0.0 Sodium 132 L Potassium 4.5 Chloride 99 L Carbon Dioxide 23 Anion Gap 10.0 BUN 22 H Creatinine 4.3 H Estimated GFR (MDRD) 13 L Glucose 168 H Calcium 8.8 Total Bilirubin 0.6 AST 23 ALT 25 Alkaline Phosphatase 81 Total Protein 7.8 Albumin 3.6 Globulin 4.2 Albumin/Globulin Ratio 0.9 L Lipase 53 H PD MEDICAL DECISION MAKING - ED course Complexity details: reviewed old records, reviewed results, re-evaluated patient, considered differential, d/w patient ED course: The patient's presentation is most consistent with postdialysis hypotension. His presentation does not suggest sepsis, cardiac ischemia, pulmonary embolus, or acute neurologic abnormality. Laboratory analysis reveals a normal white blood cell count of 5.5, slight anemia with a hemoglobin of 11.9, elevated creatinine of 4.3, which is similar to his previous creatinine levels. Treatment in the emergency department included administration of normal saline 900 mL IV. At the time of discharge his blood pressure is normal at 127/62, and he has remained asymptomatic throughout his time in the emergency department. I discussed with outpatient follow-up, as well as potentially worrisome signs or symptoms that should prompt reevaluation in the emergency department. Departure - Departure Disposition: 01 Home, Self Care Clinical Impression: Postural dizziness with near syncope, Fluid volume depletion, Chronic kidney disease with end stage renal failure on dialysis Condition: Stable Instructions: ED Dialysis Hemo, ED Hypotension Orthostatic Follow-Up: Hakeem Denise DO [Primary Care Provider] - Comments: Continue current medications as previously prescribed. Resume dialysis on Tuesday as scheduled. Follow-up with your primary physician or return to the emergency department if you develop recurrent lightheadedness, chest pain, shortness of breath, or otherwise worsening symptoms. Discharge Date/Time: 02/09/18 17:40
[2018-02-09 17:33] VITALS: BP 127/62
== END 2018-02-09 17:40 | disposition home or self-care (01) ==
LOC: EDBD → EDUNIT# → ED 15:16
DX: R42 Dizziness and giddiness (principal); R55 Syncope and collapse; E86.9 Volume depletion, unspecified; I95.89 Other hypotension; I12.0 Hypertensive chronic kidney disease with stage 5 chronic kidney disease or end stage renal disease; E11.22 Type 2 diabetes mellitus with diabetic chronic kidney disease; N18.6 End stage renal disease; Z99.2 Dependence on renal dialysis
CPT/HCPCS: 36415; 80053; 83690; 85025; 93005; 96360; 96361; 99283; 99284

== ENCOUNTER 2018-03-04 13:57 | Outpatient (CLI) | payer MEDICARE, OTHER ==
--- NOTE | 2018-03-04 16:49 | XRAY Report ---
Reason: K56.609 Procedure Date: 03/04/2018 Accession Number: [id number] / [id number] Procedure: XR - Abdomen 1 View X-Ray CPT Code: 44214 FULL RESULT: EXAM: ABDOMEN RADIOGRAPHY EXAM DATE: 03/04/2018 01:57 PM. CLINICAL HISTORY: Diarrhea and constipation for 2 months. COMPARISON: ABDOMEN/PELVIS W/O 11/29/2015 12:04 PM. TECHNIQUE: 1 view. FINDINGS: Bowel Gas Pattern: Nonobstructive bowel gas pattern. Moderate to large volume stool throughout the colon and rectum. Other: Multiple surgical clips project over the right hemiabdomen, likely related to prior right nephrectomy and possible cholecystectomy. Lung bases are clear. The bones are osteopenic. Trochanteric fixation nail and intramedullary brittany in the right femur, partially visualized. IMPRESSION: Nonobstructive bowel gas pattern. RADIA
== END 2018-03-04 23:59 ==
LOC: DI 13:57
PROVIDERS: ATTEND Specialist
DX: K56.609 Unspecified intestinal obstruction, unspecified as to partial versus complete obstruction (principal)
CPT/HCPCS: 74018

== ENCOUNTER 2018-03-11 14:42 | Outpatient (CLI) | payer MEDICARE, OTHER | END 2018-03-11 14:43 | disposition EMS.NT | LOC: EMS 14:42 | PROVIDERS: ATTEND Surgery | DX: R23.1 Pallor (principal) ==

== ENCOUNTER 2018-03-23 14:48 | Outpatient (CLI) | payer MEDICARE, OTHER | END 2018-03-23 14:49 | disposition home or self-care (01) | LOC: EMS 14:48 | PROVIDERS: ATTEND Surgery | DX: S00.93XA Contusion of unspecified part of head, initial encounter (principal); W18.30XA Fall on same level, unspecified, initial encounter; Y93.01 Activity, walking, marching and hiking; Y92.531 Health care provider office as the place of occurrence of the external cause; R42 Dizziness and giddiness; Z99.2 Dependence on renal dialysis | CPT/HCPCS: A0425; A0429 ==

== ENCOUNTER 2018-03-23 15:07 | Emergency (ER) | payer MEDICARE, OTHER ==
[2018-03-23] MEDS ORDERED: ACETAMINOPHEN 325 MG TABLET PO STA (15:24)
--- NOTE | 2018-03-23 15:24 | ED Physician Documentation ---
PD HPI Fall - Stated complaint Stated Complaint: FALL - History obtained from History obtained from: Patient, EMS - History of Present Illness Mechanism of injury: Syncope (he had just finished dialysis few minutes prior, had gotten up and was walking to the door. tanding there a minute waiting for ride. He says he then lost balance or lightheaded and fell to ground. Struck back of head. He has been having pain in right knee and feels this hurts more, thinks it twisted some as he fell.), Lost balance Fall distance: Standing position Where injury occurred: Other (dialysis center) Timing - onset: How many minutes ago (30) Injury(ies) location: Head, Right Lower Extremity (knee) Quality of pain: Aching Associated symptoms: LOC (he is not sure if he fainted briefly. He says he had been having problems with lightheaded and drop in BP after dialysis recently and it was usually as he just got up out of the chair. This was similar but delayed 5 minutes or so as he was already standing.). No: AMS, Neck pain, Weakness, Paresthesias Worsens with: Palpation Contributing factors: Other (dialysis patient). No: Anticoagulated, Intoxicated Similar symptoms before: Diagnosis (transient hypotension after dialysis o ccurring intermittently lately.) Recently seen: Clinic (had been to PCP about knee pain with walking and ROM, with plan for knee brace at some point (getting referral).) Review of Systems Constitutional: denies: Fever, Chills Nose: denies: Rhinorrhea / runny nose, Congestion Throat: denies: Sore throat Cardiac: denies: Chest pain / pressure, Palpitations Respiratory: denies: Cough GI: denies: Abdominal Pain, Nausea, Vomiting, Diarrhea, Bloody / black stool Skin: denies: Rash, Lesions Musculoskeletal: reports: Joint pain (right knee for several weeks. It is hurting more today after the fall. Able to stand on it and walk, so did not think he has fracture /etc.) PD PAST MEDICAL HISTORY - Past Medical History Cardiovascular: Hypertension, High cholesterol Respiratory: None Endocrine/Autoimmune: Type 2 diabetes GI: GERD, Ulcers : Dialysis, Other HEENT: Chronic vision loss Psych: None Musculoskeletal: Osteoarthritis Derm: None - Past Surgical History Past Surgical History: Yes General: Appendectomy Ortho: Knee replacement Cardiovascular: Other Neuro: Craniotomy HEENT: Tonsil/Adenoidectomy - Present Medications Home Medications: Ambulatory Orders Medication Instructions Recorded Confirmed Atorvastatin Calcium [Lipitor] 20 mg PO QPM 02/01/13 08/02/16 Cholecalciferol (Vitamin D3) 2,000 unit PO DAILY 08/02/16 08/02/16 [Vitamin D3] Cyclobenzaprine HCl 10 mg PO QPM PRN 08/02/16 08/02/16 Ferrous Sulfate 325 mg PO DAILYWM 08/02/16 08/02/16 Fexofenadine HCl 180 mg PO DAILY 08/02/16 08/02/16 Triamcinolone Acetonide 1 applic TOP DAILY PRN 08/02/16 08/02/16 Acetaminophen [Tylenol] 650 mg PO Q4HR PRN #0 tablet 08/06/16 Docusate Sodium 250Mg Capsule 250 - 500 mg PO DAILY capsule 08/06/16 [Colace 250Mg Capsule] Polyethylene Glycol 3350 [Miralax] 17 gm PO DAILY packet 08/06/16 Senna [Senokot] 8.6 - 17.2 mg PO DAILY tablet 08/06/16 - Allergies Allergies/Adverse Reactions: Allergies Allergy/AdvReac Type Severity Reaction Status Date / Time niacin Allergy Severe Hives Verified 03/23/18 15:11 - Social History Does the pt smoke?: No Smoking Status: Never smoker Does the pt drink ETOH?: No Does the pt have substance abuse?: No - Immunizations Immunizations are current?: Yes - POLST Patient has POLST: No POLST Status: DNR PD ED PE NORMAL - Vitals Vital signs reviewed: Yes - General General: Alert and oriented X 3, No acute distress, Well developed/nourished - HEENT HEENT: PERRL, EOMI, Other (left occiput with mild tenderness and swelling. ) - Neck Neck: Supple, no meningeal sign, No bony TTP, No adenopathy - Cardiac Cardiac: RRR, No murmur - Respiratory Respiratory: Clear bilaterally - Abdomen Abdomen: Soft, Non tender - Back Back: No spinal TTP - Derm Derm: Normal color, Warm and dry - Extremities Extremities: Other (right knee with some pain on ROM but ligaments feel firm. No effusion. Prior knee replacement scar noted. Full ROM of the knee actively. 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 Prior surgical changes frontal noted. ), EMP read contemporaneously PD MEDICAL DECISION MAKING - ED course Complexity details: considered differential, d/w patient, d/w family (son in law) Departure - Departure Disposition: 01 Home, Self Care Clinical Impression: Transient hypotension Strain of right knee Qualifiers: Encounter type: initial encounter Qualified Code(s): S86.911A - Strain of unspecified muscle(s) and tendon(s) at lower leg level, right leg, initial encounter Fall, accidental Qualifiers: Encounter type: initial encounter Qualified Code(s): W19.XXXA - Unspecified fall, initial encounter Scalp contusion Qualifiers: Encounter type: initial encounter Qualified Code(s): S00.03XA - Contusion of scalp, initial encounter Condition: Stable Record reviewed to determine appropriate education?: Yes Follow-Up: Hakeem Denise DO [Primary Care Provider] - Comments: Continue usual medications treatments. Tylenol if needed for head pain related to the fall. I would presume he had a transient drop in blood pressure after the chemo and that led to the fall. He looks fine now. We can give you a knee brace for her knee to wear when up and around and see if that helps your knee. Follow-up with your primary care. Discharge Date/Time: 03/23/18 17:22
--- NOTE | 2018-03-23 16:51 | CT Report ---
Reason: fall and struck head; no blood thinners Procedure Date: 03/23/2018 Accession Number: [id number] / [id number] Procedure: CT - Head W/O CPT Code: FULL RESULT: EXAM: CT HEAD EXAM DATE: 03/23/2018 03:39 PM. CLINICAL HISTORY: Fall. Head injury. No blood thinners. COMPARISON: HEAD W/O 02/01/2015 5:15 PM. TECHNIQUE: Multiaxial CT images were obtained from the foramen magnum to the vertex. Reformats: Sagittal and coronal. IV contrast: None. In accordance with CT protocol optimization, one or more of the following dose reduction techniques were utilized for this exam: automated exposure control, adjustment of mA and/or KV based on patient size, or use of iterative reconstructive technique. FINDINGS: Parenchyma: No intraparenchymal hemorrhage. Stable bifrontal encephalomalacia. No evidence of mass, midline shift, or CT findings of acute infarction. Lees-white differentiation is distinct. 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 Extraaxial Spaces: Normal for age. No subdural or epidural collections identified. Ventricles: The ventricles and cortical sulci are prominent, consistent with age-related tissue loss. Sinuses and orbits: Imaged paranasal sinuses, orbits, and mastoids show no significant abnormality. Bones: No skull fracture identified. Stable bifrontal craniotomy defect. Other: None. IMPRESSION: Stable age-related cortical atrophic changes and bifrontal encephalomalacia without evidence of acute intracranial abnormality. [facility]
[2018-03-23 17:02] VITALS: BP 123/75
== END 2018-03-23 17:22 | disposition home or self-care (01) ==
LOC: EDUNIT# → ED 15:07
DX: I95.9 Hypotension, unspecified (principal); S86.911A Strain of unspecified muscle(s) and tendon(s) at lower leg level, right leg, initial encounter; S00.03XA Contusion of scalp, initial encounter; W19.XXXA Unspecified fall, initial encounter; Y92.531 Health care provider office as the place of occurrence of the external cause; I10 Essential (primary) hypertension; E11.9 Type 2 diabetes mellitus without complications; E78.00 Pure hypercholesterolemia, unspecified; Z99.2 Dependence on renal dialysis; Z96.659 Presence of unspecified artificial knee joint
CPT/HCPCS: 70450; 99283; A9270

== ENCOUNTER 2018-05-04 15:08 | Outpatient (CLI) | payer MEDICARE, OTHER | END 2018-05-04 15:09 | disposition EMS.NT | LOC: EMS 15:08 | PROVIDERS: ATTEND Surgery | DX: R53.1 Weakness (principal) ==

== ENCOUNTER 2018-05-15 14:22 | Outpatient (CLI) | payer MEDICARE, OTHER | END 2018-05-15 14:23 | disposition home or self-care (01) | LOC: SC 14:22 | PROVIDERS: ATTEND Internal Medicine Pulmonary Disease | DX: G47.33 Obstructive sleep apnea (adult) (pediatric) (principal) | CPT/HCPCS: 99203; G0463; 99212 ==

== ENCOUNTER 2018-05-27 19:28 | Outpatient (CLI) | payer MEDICARE, OTHER | END 2018-05-27 19:29 | disposition home or self-care (01) | LOC: SC 19:28 | PROVIDERS: ATTEND Internal Medicine Pulmonary Disease | DX: G47.33 Obstructive sleep apnea (adult) (pediatric) (principal) | CPT/HCPCS: 95811 ==

== ENCOUNTER 2018-06-08 15:28 | Outpatient (CLI) | payer SELFPAY | END 2018-06-08 15:29 | disposition EMS.NT | LOC: EMS 15:28 | PROVIDERS: ATTEND Surgery | DX: Z03.89 Encounter for observation for other suspected diseases and conditions ruled out (principal) ==

== ENCOUNTER 2018-06-21 09:16 | Outpatient (CLI) | payer MEDICARE, OTHER | END 2018-06-21 09:17 | disposition home or self-care (01) | LOC: SC 09:16 | PROVIDERS: ATTEND Nurse Practitioner Family | DX: G47.33 Obstructive sleep apnea (adult) (pediatric) (principal) | CPT/HCPCS: 99215; G0463; 99212 ==

== ENCOUNTER 2018-07-03 19:43 | Outpatient (CLI) | payer MEDICARE, OTHER | END 2018-07-03 19:44 | disposition home or self-care (01) | LOC: SC 19:43 | PROVIDERS: ATTEND Internal Medicine Pulmonary Disease | DX: G47.33 Obstructive sleep apnea (adult) (pediatric) (principal) | CPT/HCPCS: 95811 ==

== ENCOUNTER 2018-09-13 09:45 | Outpatient (CLI) | payer MEDICARE, OTHER | END 2018-09-13 09:46 | disposition critical access hospital (66) | LOC: EMS 09:45 | PROVIDERS: ATTEND Surgery | DX: R53.1 Weakness (principal); W19.XXXA Unspecified fall, initial encounter; Y92.009 Unspecified place in unspecified non-institutional (private) residence as the place of occurrence of the external cause | CPT/HCPCS: A0425; A0429 ==

== ENCOUNTER 2018-09-13 10:00 | Emergency (ER) | payer MEDICARE, OTHER ==
--- NOTE | 2018-09-13 10:10 | ED Physician Documentation ---
PD HPI Fall - Stated complaint Stated Complaint: FALL - History obtained from History obtained from: Patient - History of Present Illness Mechanism of injury: No: Syncope (did not pass out but says he felt weak and lightheaded when got up to go to the bathroom. He had had dialysis shortly before and says he always feels some weakness afterward. he felt weak as he got up and slumped to the floor. denies head injury. Could not get himself up though, so lay on the floor overnight. Says he got sore in low back and posterior hips, but did turn side to side some.) Fall distance: Standing position Where injury occurred: Home Timing - onset: Last night Injury(ies) location: Back, Right Lower Extremity. No: Head, Neck Associated symptoms: Weakness (generalized). No: LOC, AMS Worsens with: Palpation. No: Movement Contributing factors: No: Anticoagulated, Intoxicated Similar symptoms before: No diagnosis (weakness after dialysis for the past 6 months (since onset of dialysis).) Recently seen: Clinic (dialysis yesterday (regular time)) Review of Systems Constitutional: denies: Fever, Myalgias Nose: denies: Rhinorrhea / runny nose, Congestion Throat: denies: Sore throat Cardiac: denies: Chest pain / pressure, Palpitations Respiratory: denies: Dyspnea, Cough GI: denies: Abdominal Pain, Nausea, Vomiting, Diarrhea Neurologic: reports: Generalized weakness. denies: Focal weakness, Numbness, Confused, Altered mental status, Headache, Head injury PD PAST MEDICAL HISTORY - Past Medical History Cardiovascular: Hypertension, High cholesterol Respiratory: None Endocrine/Autoimmune: Type 2 diabetes GI: GERD, Ulcers : Dialysis, Other HEENT: Chronic vision loss Psych: None Musculoskeletal: Osteoarthritis Derm: None - Past Surgical History Past Surgical History: Yes General: Appendectomy Ortho: Knee replacement Cardiovascular: Other Neuro: Craniotomy HEENT: Tonsil/Adenoidectomy - Present Medications Home Medications: Ambulatory Orders Medication Instructions Recorded Confirmed Atorvastatin Calcium [Lipitor] 20 mg PO QPM 02/01/13 08/02/16 Cyclobenzaprine HCl 10 mg PO QPM PRN 08/02/16 08/02/16 Ferrous Sulfate 325 mg PO DAILYWM 08/02/16 08/02/16 Fexofenadine HCl 180 mg PO DAILY 08/02/16 08/02/16 Triamcinolone Acetonide 1 applic TOP DAILY PRN 08/02/16 08/02/16 Acetaminophen [Tylenol] 650 mg PO Q4HR PRN #0 tablet 08/06/16 Docusate Sodium 250Mg Capsule 250 - 500 mg PO DAILY capsule 08/06/16 [Colace 250Mg Capsule] Polyethylene Glycol 3350 [Miralax] 17 gm PO DAILY packet 08/06/16 Senna [Senokot] 8.6 - 17.2 mg PO DAILY tablet 08/06/16 Cholecalciferol (Vitamin D3) 1 cap ORAL DAILY 08/24/18 08/24/18 [Vitamin D3] Furosemide 1 tab ORAL 08/24/18 Furosemide [Lasix] 1 tab ORAL 08/24/18 Metoprolol Tartrate 0.5 tab ORAL DAILY 08/24/18 08/24/18 Multivitamin W/Minerals [Theragran 1 tab ORAL DAILY 08/24/18 08/24/18 M] Nitroglycerin [Nitrostat] 1 tab SL PRN PRN 08/24/18 08/24/18 Pantoprazole Sodium 1 tab ORAL BID 08/24/18 08/24/18 Sucralfate 1 tab ORAL TID 08/24/18 08/24/18 - Allergies Allergies/Adverse Reactions: Allergies Allergy/AdvReac Type Severity Reaction Status Date / Time niacin Allergy Severe Hives Verified 09/13/18 10:05 - Social History Does the pt smoke?: No Smoking Status: Never smoker Does the pt drink ETOH?: No Does the pt have substance abuse?: No - Immunizations Immunizations are current?: Yes - POLST Patient has POLST: No POLST Status: DNR PD ED PE NORMAL - Vitals Vital signs reviewed: Yes - General General: Alert and oriented X 3, No acute distress, Well developed/nourished - HEENT HEENT: Atraumatic, Moist mucous membranes, Pharynx benign - Neck Neck: Supple, no meningeal sign, No bony TTP, No adenopathy - Cardiac Cardiac: RRR, No murmur - Respiratory Respiratory: Clear bilaterally - Abdomen Abdomen: Soft, Non tender - Back Back: No CVA TTP - Derm Derm: Normal color, Warm and dry, Other (dialysis catheters right upper chest wall without signs of infection) - Extremities Extremities: Other (some tenderness posterior right hip without skin redness nor breakdown. ) - Neuro Neuro: Alert and oriented X 3, No motor deficit, No sensory deficit Eye Opening: Spontaneous Motor: Obeys Commands Verbal: Oriented GCS Score: 15 - Psych Psych: Normal mood, Normal affect Results - Vitals Vitals: Vital Signs - 24 hr 09/13/18 09/13/18 10:02 11:11 Temperature 36.8 C Heart Rate 56 L 57 L Respiratory 19 19 Rate Blood Pressure 158/76 H 149/76 H O2 Saturation 95 97 Oxygen O2 Source [With Activity] Nasal cannula O2 Source [Without Activity] Room air O2 Source Room air - Labs Labs: Laboratory Tests 09/13/18 09/13/18 09/13/18 10:19 10:19 12:03 WBC 7.5 RBC 4.60 L Hgb 13.4 L Hct 43.0 MCV 93.5 MCH 29.1 MCHC 31.2 L RDW 16.6 H Plt Count 149 MPV 10.5 Neut # (Auto) 5.7 Lymph # (Auto) 0.9 L [place] # (Auto) 0.8 Eos # (Auto) 0.1 Baso # (Auto) 0.0 Absolute Nucleated RBC 0.00 Nucleated RBC % 0.0 Manual Slide Review Indicated WBC Morphology NORMAL APPEARANCE Platelet Estimate NORMAL (130-450,000) Platelet Morphology RARE GIANT PLATELETS RBC Morph Micro Appear OVALOCYTES Sodium 139 Potassium 4.7 Chloride 102 Carbon Dioxide 24 Anion Gap 13.0 BUN 27 H Creatinine 5.9 H Estimated GFR (MDRD) 9 L Glucose 114 H Calcium 10.0 Magnesium 1.9 Total Bilirubin 0.5 AST 20 ALT 16 Alkaline Phosphatase 93 Total Creatine Kinase 140 Total Protein 8.3 H Albumin 3.4 Globulin 4.8 H Albumin/Globulin Ratio 0.7 L Lipase 47 Urine Color YELLOW Urine Clarity CLEAR Urine pH 7.5 Ur Specific [place] 1.015 Urine Protein 100 H Urine Glucose (UA) NEGATIVE Urine Ketones NEGATIVE Urine Occult Blood SMALL H Urine Nitrite NEGATIVE Urine Bilirubin NEGATIVE Urine Urobilinogen 0.2 (NORMAL) Ur Leukocyte Esterase NEGATIVE Urine RBC 0-5 Urine WBC 0-3 Ur Squamous Epith Cells NONE SEEN Urine Bacteria Rare Urine Casts 0-2 Hyaline Casts Ur Microscopic Review INDICATED Urine Culture Comments NOT INDICATED - Rads (name of study) pelvic and lumbar CT Radiology: Prelim report reviewed (no fractures), EMP read contemporaneously, See rad report PD MEDICAL DECISION MAKING - ED course Complexity details: considered differential (I think his weakness was from underhydration and he feels better with IV fluids. No other apparent cause found on testing in ED. ), d/w patient Departure - Departure Disposition: 01 Home, Self Care Clinical Impression: Generalized weakness, Hypovolemia Fall Qualifiers: Encounter type: initial encounter Qualified Code(s): W19.XXXA - Unspecified fall, initial encounter Condition: Stable Record reviewed to determine appropriate education?: Yes Comments: Your basic blood tests appear normal with the obvious abnormality of your kidney function. No signs of fractures in your lower back or pelvis. You will still be sore there and can use some Tylenol as needed for pains. Your urine test does not show signs of infection. Stay well-hydrated with usual care per your air and water tester. Continue normal dialysis. Discharge Date/Time: 09/13/18 12:38
[2018-09-13 10:25] LABS: BASOPHILS % (AUTO) 0.1 %; EOSINOPHILS # (AUTO) 0.1 10^3/uL (0.0-0.7); EOSINOPHILS % (AUTO) 0.8 %; HGB - HEMOGLOBIN 13.4 g/dL (14.0-18.0); LYMPHOCYTES # (AUTO) 0.9 10^3/uL (1.5-3.5); LYMPHOCYTES % (AUTO) 12.4 %; MEAN CORPUSCULAR HEMOGLOBIN 29.1 pg (27.0-31.0); MEAN CORPUSCULAR HGB CONC 31.2 g/dL (32.0-36.0); MEAN CORPUSCULAR VOLUME 93.5 fL (80.0-94.0); MEAN PLATELET VOLUME 10.5 fL (7.4-11.4); MONOCYTES # (AUTO) 0.8 10^3/uL (0.0-1.0); NEUTROPHILS # (AUTO) 5.7 10^3/uL (1.5-6.6); NEUTROPHILS % (AUTO) 76.2 %; PLT - PLATELET COUNT 149 10^3/uL (130-450); RED CELL DISTRIBUTION WIDTH 16.6 % (12.0-15.0); WHITE BLOOD COUNT 7.5 x10^3/uL (4.8-10.8)
[2018-09-13 10:40] LABS: ALBUMIN 3.4 g/dL (3.2-5.5); ALBUMIN/GLOBULIN RATIO 0.7 (1.0-2.2); BILIRUBIN,TOTAL 0.5 mg/dL (0.2-1.0); CREATININE 5.9 mg/dL (0.6-1.2); MAGNESIUM 1.9 mg/dL (1.7-2.8); TOTAL PROTEIN 8.3 g/dL (6.7-8.2)
[2018-09-13 10:54] LABS: PLATELET ESTIMATE, MANUAL NORMAL (130-450,000) (NORMAL); PLATELET MORPHOLOGY RARE GIANT PLATELETS (NORMAL)
[2018-09-13 11:13] VITALS: BP 149/76
--- NOTE | 2018-09-13 11:18 | CT Report ---
Reason: fall last night; pain lower back and pelvis Procedure Date: 09/13/2018 Accession Number: [id number] / [id number] Procedure: CT - PELVIS WO CPT Code: FULL RESULT: EXAM: CT BONY PELVIS WITHOUT CONTRAST EXAM DATE: 09/13/2018 10:54 AM. CLINICAL HISTORY: Fall last night; pain lower back and pelvis. COMPARISON: None. TECHNIQUE: Thin-section axial images were acquired of the pelvis without contrast. Post-processing: Coronal and sagittal reformats. Other: None. In accordance with CT protocol optimization, one or more of the following dose reduction techniques were utilized for this exam: automated exposure control, adjustment of mA and/or KV based on patient size, or use of iterative reconstructive technique. FINDINGS: Bones: The right femoral neck hip screw and partially healed fracture are noted. There is no acute fracture of the left hip. The pubic rami and sacrum appear intact. There is mild osteopenia. Sacroiliac Joints: Minimal degenerative change. Symphysis Pubis: Unremarkable. Mild bilateral hip joint space narrowing with subarticular sclerosis and cyst formation consistent with mild osteoarthritis. Musculature: Normal. No fatty atrophy. Pelvic Cavity: There are numerous colonic diverticula. There is no free fluid. There are no visible masses. Other: No lymphadenopathy. No free air or free fluid. The other visualized soft tissues are unremarkable. IMPRESSION: 1. No visible fracture. The patient is osteopenic, and nondisplaced fractures cannot be excluded. 2. Mild bilateral hip osteoarthritis. 3. Partially healed fracture of the right neck of femur. [facility]
--- NOTE | 2018-09-13 11:36 | CT Report ---
Reason: fall last night; pain lower back and pelvis Procedure Date: 09/13/2018 Accession Number: [id number] / [id number] Procedure: CT - LUMBAR SPINE WO CPT Code: FULL RESULT: EXAM: CT LUMBAR SPINE WITHOUT CONTRAST EXAM DATE: 09/13/2018 10:54 AM. CLINICAL HISTORY: Fall last night; pain lower back and pelvis. COMPARISONS: None. TECHNIQUE: Thin-section axial images were acquired of the lumbar spine from T12 to S1 without contrast. Post-processing: Coronal and sagittal reformats. Other: None. In accordance with CT protocol optimization, one or more of the following dose reduction techniques were utilized for this exam: automated exposure control, adjustment of mA and/or KV based on patient size, or use of iterative reconstructive technique. FINDINGS: Alignment: No scoliosis or spondylolisthesis. Bones: The bones are qualitatively osteopenic; this limits evaluation for underlying fractures or masses. No loss of height or osseous retropulsion. Five [id number] lumbar vertebral bodies are present. No fractures or aggressive osseous lesions within limitation of the osteopenia. Disk Levels/Facets: T12-L1: Unremarkable. L1-L2: Unremarkable. L2-L3: Unremarkable. L3-L4: The L3-L4 disk space demonstrates sequela of what is felt to likely represent a prior endplate fracture of the inferior L3 vertebral body with calcification of the disk space and loss of disk space height. L4-L5: Unremarkable. L5-S1: Unremarkable. Musculature: Normal. No fatty atrophy. Other: Limited visualization of lung tissue which is further limited by motion artifact with suggestion of increased interstitial markings and some bronchiectasis predominantly at the right lung base, fibrosis versus less likely edema or other interstitial airspace disease. Postsurgical changes are seen in the right paracaval region, possible nephrectomy, not included in [id number]. IMPRESSION: No acute traumatic injury to the lumbar spine is detected. [facility]
[2018-09-13 12:15] LABS: BILIRUBIN,URINE NEGATIVE (NEGATIVE); GLUCOSE, URINE (UA) NEGATIVE (NEGATIVE); KETONES,URINE (UA) NEGATIVE (NEGATIVE); LEUKOCYTE ESTERASE, URINE NEGATIVE (NEGATIVE); NITRITE,URINE NEGATIVE (NEGATIVE); OCCULT BLOOD,URINE SMALL (NEGATIVE); PH,URINE 7.5 PH (5.0-7.5); PROTEIN,URINE 100 mg/dL (NEGATIVE); UROBILINOGEN,URINE 0.2 (NORMAL) E.U./dL (NORMAL)
[2018-09-13 12:16] LABS: CLARITY,URINE CLEAR (CLEAR)
[2018-09-13 12:24] LABS: BACTERIA,URINE Rare /HPF (None Seen); CASTS, URINE 0-2 Hyaline Casts /LPF; RBC,URINE 0-5 /HPF (0-5); SQUAMOUS EPITHELIAL CELL,UR NONE SEEN (<= Few)
== END 2018-09-13 12:38 | disposition home or self-care (01) ==
LOC: EDUNIT# → ED 10:00
DX: E86.1 Hypovolemia (principal); R53.1 Weakness; R42 Dizziness and giddiness; M54.5 Low back pain; W18.30XA Fall on same level, unspecified, initial encounter; Y92.009 Unspecified place in unspecified non-institutional (private) residence as the place of occurrence of the external cause; M16.0 Bilateral primary osteoarthritis of hip; I10 Essential (primary) hypertension; E11.9 Type 2 diabetes mellitus without complications; Z99.2 Dependence on renal dialysis
CPT/HCPCS: 36415; 72131; 72192; 80053; 81001; 81003; 82550; 83690; 83735; 85025; 87086; 99284

== ENCOUNTER 2018-12-17 12:22 | Emergency (ER) | payer MEDICARE, OTHER ==
--- NOTE | 2018-12-17 12:43 | ED Physician Documentation ---
PD HPI UPPER EXT INJURY - Stated complaint Stated Complaint: RT HIP PX - Chief complaint Chief Complaint: Ext Problem - History obtained from History obtained from: Patient - History of Present Illness Location: Left, Other (hip laterally for few days and also has had pain right knee for a month intermittently.) Type of injury: Other (he awoke from sleep with pain lateral left hip several days ago. No noted injury, no fall. Has continued to hurt with ROM and palpation.). No: Fall, Twist Where injury occurred: Home Timing - onset: How many days ago (few) Timing - duration: Days (few) Timing - details: Abrupt onset, Still present, Waxing and waning Worsened by: Moving (abduction and twisting left leg. Not painful for flex/ext at hip.), Palpating Associated symptoms: No: Weakness, Numbness, Swelling Recently seen: Not recently seen Review of Systems Constitutional: denies: Fever, Chills Skin: denies: Rash, Lesions Neurologic: denies: Focal weakness, Numbness PD PAST MEDICAL HISTORY - Past Medical History Cardiovascular: Hypertension, High cholesterol Respiratory: None Endocrine/Autoimmune: Type 2 diabetes GI: GERD, Ulcers : Dialysis, Other HEENT: Chronic vision loss Psych: None Musculoskeletal: Osteoarthritis Derm: None - Past Surgical History Past Surgical History: Yes General: Appendectomy Ortho: Knee replacement Cardiovascular: Other Neuro: Craniotomy HEENT: Tonsil/Adenoidectomy - Present Medications Home Medications: Ambulatory Orders Medication Instructions Recorded Confirmed Atorvastatin Calcium [Lipitor] 20 mg PO QPM 02/01/13 08/02/16 Cyclobenzaprine HCl 10 mg PO QPM PRN 08/02/16 08/02/16 Ferrous Sulfate 325 mg PO DAILYWM 08/02/16 08/02/16 Fexofenadine HCl 180 mg PO DAILY 08/02/16 08/02/16 Triamcinolone Acetonide 1 applic TOP DAILY PRN 08/02/16 08/02/16 Acetaminophen [Tylenol] 650 mg PO Q4HR PRN #0 tablet 08/06/16 Docusate Sodium 250Mg Capsule 250 - 500 mg PO DAILY capsule 08/06/16 [Colace 250Mg Capsule] Polyethylene Glycol 3350 [Miralax] 17 gm PO DAILY packet 08/06/16 Senna [Senokot] 8.6 - 17.2 mg PO DAILY tablet 08/06/16 Cholecalciferol (Vitamin D3) 1 cap ORAL DAILY 08/24/18 08/24/18 [Vitamin D3] Furosemide 1 tab ORAL 08/24/18 Furosemide [Lasix] 1 tab ORAL 08/24/18 Metoprolol Tartrate 0.5 tab ORAL DAILY 08/24/18 08/24/18 Multivitamin W/Minerals [Theragran 1 tab ORAL DAILY 08/24/18 08/24/18 M] Nitroglycerin [Nitrostat] 1 tab SL PRN PRN 08/24/18 08/24/18 Pantoprazole Sodium 1 tab ORAL BID 08/24/18 08/24/18 Sucralfate 1 tab ORAL TID 08/24/18 08/24/18 Hydrocodone/Acetaminophen [[place] 1 each PO Q6H PRN #20 tablet 12/17/18 5-325 Tablet] dexAMETHasone [Decadron] 4 mg PO DAILY #5 tablet 12/17/18 - Allergies Allergies/Adverse Reactions: Allergies Allergy/AdvReac Type Severity Reaction Status Date / Time niacin Allergy Severe Hives Verified 12/17/18 12:27 - Social History Does the pt smoke?: No Smoking Status: Never smoker Does the pt drink ETOH?: No Does the pt have substance abuse?: No - Immunizations Immunizations are current?: Yes - POLST Patient has POLST: No POLST Status: DNR PD ED PE NORMAL - Vitals Vital signs reviewed: Yes - General General: Alert and oriented X 3, No acute distress, Well developed/nourished - Back Back: No spinal TTP - Derm Derm: Normal color, Warm and dry - Extremities Extremities: Other (right knee with mild effusion. No noted laxity with ligament testing. Left hip with good ROM of the hip itself and no pain with impaction nor rotational movement. Lateral hip is tender focally at trochanter area without redness nor warmth. ) - Neuro Neuro: Alert and oriented X 3, No motor deficit, No sensory deficit Results - Vitals Vitals: Vital Signs - 24 hr 12/17/18 12/17/18 12:26 14:18 Temperature 36.6 C 36.5 C Heart Rate 57 L 52 L Respiratory 20 18 Rate Blood Pressure 169/91 H 160/77 H O2 Saturation 100 99 Oxygen O2 Source [With Activity] Nasal cannula O2 Source [Without Activity] Room air O2 Source Room air - Rads (name of study) right knee Radiology: Prelim report reviewed (expected position of replacement hardware), See rad report left hip Radiology: Prelim report reviewed (no acute process. no fractures. ), See rad report PD MEDICAL DECISION MAKING - ED course Complexity details: considered differential (knee pain with prior replacement about 8 years ago. May have some laxity and would have him follow up with Ortho. Left lateral hip pain with tenderness at trochanter. Did injection with Lido/Kenalog there, without problems. ), d/w patient Departure - Departure Disposition: 01 Home, Self Care Clinical Impression: Lateral pain of left hip Knee pain Qualifiers: Chronicity: unspecified Laterality: right Qualified Code(s): M25.561 - Pain in right knee Condition: Stable Record reviewed to determine appropriate education?: Yes Instructions: Trochanteric Bursitis Follow-Up: MANDEEP LIVINGSTON [Primary Care Provider] - [facility] [Provider Group] Prescriptions: dexAMETHasone [Decadron] 4 mg PO DAILY #5 tablet Hydrocodone/Acetaminophen [[place] 5-325 Tablet] 1 each PO Q6H PRN #20 tablet PRN Reason: Pain Comments: The x-ray of your knee and her hip appear normal for age. The knee replacement appears in position. There is little bit of swelling in the joint presume its some inflammation around the prosthetic. Can use Decadron oral steroid for inflammation to see if it helps, then would not interfere with kidney function. The hip x-ray does not show any fractures or displacement. The tenderness laterally suggest some inflammation of the attachment point for muscles called the trochanteric bursa. I did an injection there to see if it will help over the next few days. Use Tylenol or hydrocodone if needed for pains periodically as directed. Follow-up with orthopedics regarding further evaluation and treatment for the knee and hip. Discharge Date/Time: 12/17/18 14:21
[2018-12-17] MEDS ORDERED: TRIAMCINOLONE 40 MG/ML VIAL IM STA (13:01)
[2018-12-17] MEDS ORDERED: HYDROcod/ACETAM 5/325 MG TABLET PO STA (13:01)
--- NOTE | 2018-12-17 13:43 | XRAY Report ---
Reason: pain for 2 days, without fall Procedure Date: 12/17/2018 Accession Number: [id number] / [id number] Procedure: XR - Hip w/Pelvis 2-3V LT CPT Code: FULL RESULT: EXAM: LEFT HIP RADIOGRAPHY EXAM DATE: 12/17/2018 01:34 PM. CLINICAL HISTORY: Pain for 2 days, without fall. COMPARISON: None. TECHNIQUE: 2 views. FINDINGS: Bones: Osteopenia somewhat limits evaluation. No fracture lines are seen at the pelvis or hip. Right hip fixation hardware appears intact. Joints: Normal. No dislocation. The hip joint space is preserved. Soft Tissues: Normal. No soft tissue swelling. IMPRESSION: No evidence for acute fracture or dislocation of the left hip. RADIA
--- NOTE | 2018-12-17 13:44 | XRAY Report ---
Reason: intermiten pain for a few weeks Procedure Date: 12/17/2018 Accession Number: [id number] / [id number] Procedure: XR - Knee 2 View RT CPT Code: FULL RESULT: EXAM: RIGHT KNEE RADIOGRAPHY EXAM DATE: 12/17/2018 01:34 PM. CLINICAL HISTORY: Intermiten pain for a few weeks. COMPARISON: None. TECHNIQUE: 2 views. FINDINGS: Bones and Joints: No fractures or bone lesion. A 3 component right knee arthroplasty has been performed. There is expected alignment of components. No unexpected periprosthetic lucency or other evidence of loosening. Soft Tissues: Trace knee joint effusion is noted. No soft tissue swelling. IMPRESSION: 1. Expected appearance and alignment of knee arthroplasty hardware without evidence for loosening or break. 2. Trace knee joint effusion is seen. RADIA
[2018-12-17 14:20] VITALS: BP 160/77
== END 2018-12-17 14:21 | disposition home or self-care (01) ==
LOC: ED 12:22
DX: M25.552 Pain in left hip (principal); M25.561 Pain in right knee; M25.461 Effusion, right knee; I10 Essential (primary) hypertension; E11.9 Type 2 diabetes mellitus without complications; Z96.651 Presence of right artificial knee joint; Z66 Do not resuscitate
CPT/HCPCS: 20552; 73502; 73560; 99283; 99284; A9270

== ENCOUNTER 2018-12-20 10:18 | Outpatient (CLI) | payer MEDICARE, OTHER | END 2018-12-20 10:19 | disposition EMS.NT | LOC: EMS 10:18 | PROVIDERS: ATTEND Surgery | DX: Z03.89 Encounter for observation for other suspected diseases and conditions ruled out (principal) ==

== ENCOUNTER 2018-12-21 00:22 | Outpatient (CLI) | payer MEDICARE, OTHER | END 2018-12-21 00:23 | disposition short-term general hospital (02) | LOC: EMS 00:22 | PROVIDERS: ATTEND Surgery | DX: R53.1 Weakness (principal); R29.6 Repeated falls; M54.9 Dorsalgia, unspecified; Z99.2 Dependence on renal dialysis | CPT/HCPCS: A0425; A0429 ==

== ENCOUNTER 2019-01-26 15:37 | Emergency (ER) | payer MEDICARE, OTHER ==
[2019-01-26 16:35] LABS: BASOPHILS % (AUTO) 0.4 %; EOSINOPHILS % (AUTO) 0.5 %; HGB - HEMOGLOBIN 11.3 g/dL (14.0-18.0); LYMPHOCYTES # (AUTO) 1.3 10^3/uL (1.5-3.5); LYMPHOCYTES % (AUTO) 16.3 %; MEAN CORPUSCULAR HEMOGLOBIN 29.9 pg (27.0-31.0); MEAN CORPUSCULAR HGB CONC 30.1 g/dL (32.0-36.0); MEAN CORPUSCULAR VOLUME 99.2 fL (80.0-94.0); MEAN PLATELET VOLUME 10.2 fL (7.4-11.4); MONOCYTES # (AUTO) 0.9 10^3/uL (0.0-1.0); NEUTROPHILS # (AUTO) 5.4 10^3/uL (1.5-6.6); NEUTROPHILS % (AUTO) 69.8 %; PLT - PLATELET COUNT 149 10^3/uL (130-450); RED BLOOD COUNT 3.78 10^6/uL (4.70-6.10); RED CELL DISTRIBUTION WIDTH 15.2 % (12.0-15.0); WHITE BLOOD COUNT 7.7 x10^3/uL (4.8-10.8)
--- NOTE | 2019-01-26 16:46 | XRAY Report ---
Reason: cough Procedure Date: 01/26/2019 Accession Number: [id number] / [id number] Procedure: XR - Chest 2 View X-Ray CPT Code: 93211 Final Report FULL RESULT: EXAM: CHEST RADIOGRAPHY EXAM DATE: 01/26/2019 04:34 PM. CLINICAL HISTORY: Cough. COMPARISON: CHEST 2 VIEW 11/01/2017 11:01 AM. TECHNIQUE: 2 views. FINDINGS: Lungs/Pleura: Hyperinflation. Chronic lower lung interstitial changes. Slight increase in density is seen in the left lower lung possibly the left lower lobe. There are small bilateral pleural effusions. Mediastinum: Heart size upper normal. Aorta is mildly tortuous. Aortic atherosclerosis. Other: Degenerative changes of the thoracic spine. Healed left rib fractures. Right IJ catheter is unchanged. Surgical clips again seen in the upper abdomen. IMPRESSION: 1. Increase in density in the left lower lung likely left lower lobe, possibly early consolidation. 2. Small bilateral pleural effusions. RADIA
[2019-01-26 16:53] LABS: ALBUMIN 3.4 g/dL (3.2-5.5); ALBUMIN/GLOBULIN RATIO 0.8 (1.0-2.2); BILIRUBIN,TOTAL 0.7 mg/dL (0.2-1.0); CALCIUM 9.4 mg/dL (8.5-10.3); CREATININE 6.4 mg/dL (0.6-1.2); TOTAL PROTEIN 7.6 g/dL (6.7-8.2)
--- NOTE | 2019-01-26 17:05 | ED Physician Documentation ---
History of Present Illness - Stated complaint Stated Complaint: HIGH BP, WEAKNESS - Chief complaint Chief Complaint: General - History obtained from History obtained from: Patient, Family - History of Present Illness Timing: Today Pain level max: 0 Pain level now: 0 - Additonal information Additional information: 88-year-old male, currently on hemodialysis. Scheduled for dialysis in the morning. He has been coughing for the past 3 days and feeling weak. Nothing makes it better or worse. Review of Systems Constitutional: denies: Fever, Chills Cardiac: denies: Chest pain / pressure Respiratory: reports: Cough GI: denies: Nausea, Vomiting, Constipation, Diarrhea : denies: Dysuria Skin: denies: Rash Neurologic: denies: Headache PD PAST MEDICAL HISTORY - Past Medical History Past Medical History: Yes Cardiovascular: Hypertension, High cholesterol Respiratory: None Endocrine/Autoimmune: Type 2 diabetes GI: GERD, Ulcers : Dialysis, Other HEENT: Chronic vision loss Psych: None Musculoskeletal: Osteoarthritis Derm: None - Past Surgical History Past Surgical History: Yes General: Appendectomy Ortho: Knee replacement Cardiovascular: Other Neuro: Craniotomy HEENT: Tonsil/Adenoidectomy - Present Medications Home Medications: Ambulatory Orders Medication Instructions Recorded Confirmed Atorvastatin Calcium [Lipitor] 20 mg PO QPM 02/01/13 08/02/16 Cyclobenzaprine HCl 10 mg PO QPM PRN 08/02/16 08/02/16 Ferrous Sulfate 325 mg PO DAILYWM 08/02/16 08/02/16 Fexofenadine HCl 180 mg PO DAILY 08/02/16 08/02/16 Triamcinolone Acetonide 1 applic TOP DAILY PRN 08/02/16 08/02/16 Acetaminophen [Tylenol] 650 mg PO Q4HR PRN #0 tablet 08/06/16 Docusate Sodium 250Mg Capsule 250 - 500 mg PO DAILY capsule 08/06/16 [Colace 250Mg Capsule] Polyethylene Glycol 3350 [Miralax] 17 gm PO DAILY packet 08/06/16 Senna [Senokot] 8.6 - 17.2 mg PO DAILY tablet 08/06/16 Cholecalciferol (Vitamin D3) 1 cap ORAL DAILY 08/24/18 08/24/18 [Vitamin D3] Furosemide 1 tab ORAL 08/24/18 Furosemide [Lasix] 1 tab ORAL 08/24/18 Metoprolol Tartrate 0.5 tab ORAL DAILY 08/24/18 08/24/18 Multivitamin W/Minerals [Theragran 1 tab ORAL DAILY 08/24/18 08/24/18 M] Nitroglycerin [Nitrostat] 1 tab SL PRN PRN 08/24/18 08/24/18 Pantoprazole Sodium 1 tab ORAL BID 08/24/18 08/24/18 Sucralfate 1 tab ORAL TID 08/24/18 08/24/18 Hydrocodone/Acetaminophen [[place] 1 each PO Q6H PRN #20 tablet 12/17/18 5-325 Tablet] dexAMETHasone [Decadron] 4 mg PO DAILY #5 tablet 12/17/18 Doxycycline Hyclate 100 mg PO BID #20 capsule 01/26/19 - Allergies Allergies/Adverse Reactions: Allergies Allergy/AdvReac Type Severity Reaction Status Date / Time niacin Allergy Severe Hives Verified 01/26/19 15:47 - Social History Does the pt smoke?: No Smoking Status: Never smoker Does the pt drink ETOH?: No Does the pt have substance abuse?: No - Immunizations Immunizations are current?: Yes - POLST Patient has POLST: No POLST Status: DNR PD ED PE NORMAL - Vitals Vital signs reviewed: Yes - General General: Alert and oriented X 3, No acute distress, Well developed/nourished - HEENT HEENT: PERRL, Moist mucous membranes - Neck Neck: Supple, no meningeal sign - Cardiac Cardiac: RRR, Strong equal pulses - Respiratory Respiratory: No respiratory distress, Other (Rhonchi bilaterally) - Abdomen Abdomen: Soft, Non tender, Non distended - Derm Derm: Warm and dry - Extremities Extremities: No edema - Neuro Neuro: Alert and oriented X 3 - Psych Psych: Normal mood, Normal affect Results - Vitals Vitals: Vital Signs - 24 hr 01/26/19 01/26/19 15:40 17:27 Temperature 36.7 C Heart Rate 66 76 Respiratory 18 18 Rate Blood Pressure 170/92 H 136/82 H O2 Saturation 98 99 Oxygen O2 Source [With Activity] Nasal cannula O2 Source [Without Activity] Room air O2 Source Room air - Labs Labs: Laboratory Tests 01/26/19 01/26/19 16:23 16:23 WBC 7.7 RBC 3.78 L Hgb 11.3 L Hct 37.5 L MCV 99.2 H MCH 29.9 MCHC 30.1 L RDW 15.2 H Plt Count 149 MPV 10.2 Neut # (Auto) 5.4 Lymph # (Auto) 1.3 L [place] # (Auto) 0.9 Eos # (Auto) 0.0 Baso # (Auto) 0.0 Absolute Nucleated RBC 0.00 Nucleated RBC % 0.0 Sodium 140 Potassium 4.4 Chloride 105 Carbon Dioxide 23 Anion Gap 12.0 BUN 44 H Creatinine 6.4 H Estimated GFR (MDRD) 8 L Glucose 88 Calcium 9.4 Total Bilirubin 0.7 AST 15 ALT 15 Alkaline Phosphatase 82 Total Protein 7.6 Albumin 3.4 Globulin 4.2 Albumin/Globulin Ratio 0.8 L Lipase 53 H - Rads (name of study) cxr Radiology: Prelim report reviewed, EMP read contemporaneously, See rad report (Increase in density in the left lower lung likely left lower lobe, possibly early consolidation. 2. Small bilateral pleural effusions. ) PD MEDICAL DECISION MAKING - ED course Complexity details: reviewed results, re-evaluated patient, considered differential, d/w patient, d/w family ED course: 88-year-old male with what appears to be early pneumonia. Will place on antibiotics. He is scheduled for dialysis in the morning. He is well- appearing, nontoxic. Afebrile. No hypoxia. No respiratory distress. No evidence of sepsis. Patient and family counseled regarding signs and symptoms for which I believe and urgent re-evaluation would be necessary. Patient with good understanding of and agreement to plan and is comfortable going home at this time This document was made in part using voice recognition software. While efforts are made to proofread this document, sound alike and grammatical errors may occur. Departure - Departure Disposition: 01 Home, Self Care Clinical Impression: Pneumonia Qualifiers: Pneumonia type: due to unspecified organism Laterality: left Lung location: lower lobe of lung Qualified Code(s): J18.9 - Pneumonia, unspecified organism Condition: Good Instructions: ED Pneumonia Adult Follow-Up: MANDEEP LIVINGSTON [Primary Care Provider] - Within 1 week Prescriptions: Doxycycline Hyclate 100 mg PO BID #20 capsule Comments: Take all antibiotics until gone. Hold his iron and Carafate while he is taking the doxycycline. Return if he worsens. Discharge Date/Time: 01/26/19 17:33
[2019-01-26] MEDS ORDERED: DOXYCYCLINE 100 MG TABLET PO STA (17:15)
[2019-01-26 17:28] VITALS: BP 136/82
== END 2019-01-26 17:33 | disposition home or self-care (01) ==
LOC: ED 15:37
DX: J18.9 Pneumonia, unspecified organism (principal); I10 Essential (primary) hypertension; E11.29 Type 2 diabetes mellitus with other diabetic kidney complication; N28.9 Disorder of kidney and ureter, unspecified; Z99.2 Dependence on renal dialysis
CPT/HCPCS: 36415; 71046; 80053; 83690; 85025; 99283; 99284; A9270

== ENCOUNTER 2019-02-08 08:16 | Outpatient (CLI) | payer MEDICARE, OTHER | END 2019-02-08 08:17 | disposition short-term general hospital (02) | LOC: EMS 08:16 | PROVIDERS: ATTEND Surgery | DX: M25.561 Pain in right knee (principal); R53.1 Weakness; S51.812A Laceration without foreign body of left forearm, initial encounter; S51.811A Laceration without foreign body of right forearm, initial encounter; W18.39XA Other fall on same level, initial encounter; Y92.022 Bathroom in mobile home as the place of occurrence of the external cause; Z99.2 Dependence on renal dialysis | CPT/HCPCS: A0425; A0429 ==

== ENCOUNTER 2019-02-10 11:52 | Outpatient (CLI) | payer MEDICARE, OTHER | END 2019-02-10 11:53 | disposition short-term general hospital (02) | LOC: EMS 11:52 | PROVIDERS: ATTEND Surgery | DX: R11.2 Nausea with vomiting, unspecified (principal); R19.7 Diarrhea, unspecified; R53.1 Weakness; Z99.2 Dependence on renal dialysis | CPT/HCPCS: A0425; A0429 ==

== ENCOUNTER 2019-03-20 14:59 | Outpatient (CLI) | payer MEDICARE, OTHER | END 2019-03-20 15:00 | disposition EMS.NT | LOC: EMS 14:59 | PROVIDERS: ATTEND Surgery | DX: Z03.89 Encounter for observation for other suspected diseases and conditions ruled out (principal) ==

== ENCOUNTER 2019-04-13 11:28 | Outpatient (CLI) | payer MEDICARE, OTHER | END 2019-04-13 11:29 | disposition EMS.NT | LOC: EMS 11:28 | PROVIDERS: ATTEND Surgery | DX: Z03.89 Encounter for observation for other suspected diseases and conditions ruled out (principal) ==

== ENCOUNTER 2019-05-26 11:40 | Outpatient (CLI) | payer MEDICARE, OTHER | END 2019-05-26 11:41 | disposition EMS.NT | LOC: EMS 11:40 | PROVIDERS: ATTEND Surgery | DX: Z03.89 Encounter for observation for other suspected diseases and conditions ruled out (principal) ==

== ENCOUNTER 2019-06-02 21:08 | Outpatient (CLI) | payer MEDICARE, OTHER | END 2019-06-02 21:09 | disposition EMS.NT | LOC: EMS 21:08 | PROVIDERS: ATTEND Surgery | DX: Z03.89 Encounter for observation for other suspected diseases and conditions ruled out (principal) ==

== ENCOUNTER 2019-06-06 07:27 | Outpatient (CLI) | payer MEDICARE, OTHER | END 2019-06-06 07:28 | disposition critical access hospital (66) | LOC: EMS 07:27 | PROVIDERS: ATTEND Surgery | DX: M54.9 Dorsalgia, unspecified (principal); W18.39XA Other fall on same level, initial encounter; Y92.009 Unspecified place in unspecified non-institutional (private) residence as the place of occurrence of the external cause; Z99.2 Dependence on renal dialysis | CPT/HCPCS: A0425; A0429 ==

== ENCOUNTER 2019-06-06 07:42 | Emergency (ER) | payer MEDICARE, OTHER ==
--- NOTE | 2019-06-06 08:00 | ED Physician Documentation ---
History of Present Illness - Stated complaint Stated Complaint: GLF - Chief complaint Chief Complaint: Trauma Ch/Bk - History obtained from History obtained from: Patient, EMS - Additonal information Additional information: Patient is brought to the emergency department after a ground-level fall at home and transported by EMS. Patient states that he was walking with his walker and that it just "got away from him". He states he fell to the side and landed on his back. He states he is certain he did not hit his head. He is complaining of midthoracic spinal pain. He denies any other injuries. No chest pain or difficulty breathing. No headache or dizziness. No visual changes. No abdominal pain. No hip or pelvic pain. No extremity pain. He states he fell couple of days ago for the same reason and has bruising on his face and his left hand from that. Patient states that he has been on dialysis for the last year and is scheduled to have dialysis this afternoon. He has not been ill with anything else recently. He states he did not fall because of dizziness, focal weakness, or otherwise feeling unwell. No other complaints at this time. Review of Systems Ten Systems: 10 systems reviewed and negative Constitutional: reports: Reviewed and negative Eyes: reports: Reviewed and negative Ears: reports: Reviewed and negative Nose: reports: Reviewed and negative Throat: reports: Reviewed and negative Cardiac: reports: Reviewed and negative Respiratory: reports: Reviewed and negative GI: reports: Reviewed and negative : reports: Reviewed and negative Skin: reports: Reviewed and negative Musculoskeletal: reports: Reviewed and negative Neurologic: reports: Reviewed and negative Psychiatric: reports: Reviewed and negative Endocrine: reports: Reviewed and negative Immunocompromised: reports: Reviewed and negative PD PAST MEDICAL HISTORY - Past Medical History Cardiovascular: Hypertension, High cholesterol Respiratory: None Endocrine/Autoimmune: Type 2 diabetes GI: GERD, Ulcers : Dialysis, Other HEENT: Chronic vision loss Psych: None Musculoskeletal: Osteoarthritis Derm: None - Past Surgical History Past Surgical History: Yes General: Appendectomy Ortho: Knee replacement Cardiovascular: Other Neuro: Craniotomy HEENT: Tonsil/Adenoidectomy - Present Medications Home Medications: Ambulatory Orders Medication Instructions Recorded Confirmed Atorvastatin Calcium [Lipitor] 20 mg PO QPM 02/01/08/02/16 Furosemide [Lasix] 1 tab ORAL 08/24/18 Metoprolol Tartrate 0.5 tab ORAL DAILY 08/24/18 08/24/18 Nitroglycerin [Nitrostat] 1 tab SL PRN PRN 08/24/18 08/24/18 Pantoprazole Sodium 1 tab ORAL BID 08/24/18 08/24/18 Pantoprazole [Protonix] 40 mg PO 06/06/19 - Allergies Allergies/Adverse Reactions: Allergies Allergy/AdvReac Type Severity Reaction Status Date / Time niacin Allergy Severe Hives Verified 06/06/19 07:52 - Social History Does the pt smoke?: No Smoking Status: Never smoker Does the pt drink ETOH?: No Does the pt have substance abuse?: No - Immunizations Immunizations are current?: Yes - POLST Patient has POLST: No POLST Status: DNR PD ED PE NORMAL - Vitals Vital signs reviewed: Yes - General General: Alert and oriented X 3, No acute distress, Well developed/nourished - HEENT HEENT: PERRL, EOMI, Moist mucous membranes, Other (Old bruising noted on left face. No edema, deformity, or tenderness.No acute trauma) - Neck Neck: Supple, no meningeal sign, No bony TTP - Cardiac Cardiac: RRR, No murmur - Respiratory Respiratory: No respiratory distress, Clear bilaterally - Abdomen Abdomen: Soft, Non tender, Non distended - Back Back: Other (Patient has moderate tenderness over his T4-8 area without step-off or deformity, Other than chronic-appearing, moderate kyphosis. No posterior rib tenderness.) - Derm Derm: Normal color, Warm and dry, No rash, Other (Patient does have older appearing contusions on both his left lateral face/uatsdin area and on his dorsal left hand on the ulnar aspect. No facial edema noted. 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, No motor deficit, No sensory deficit, Normal speech - Psych Psych: Normal mood, Normal affect Results - Vitals Vitals: Vital Signs - 24 hr 06/06/19 07:43 Temperature 36.2 C L Heart Rate 56 L Respiratory 16 Rate Blood Pressure 172/87 H O2 Saturation 96 Oxygen O2 Source [With Activity] Nasal cannula O2 Source [Without Activity] Room air O2 Source Room air PD MEDICAL DECISION MAKING - ED course Complexity details: reviewed results, re-evaluated patient, considered differential, d/w patient ED course: Patient overall was fairly well-appearing, but given his T-spine tenderness, I felt he should have imaging of the thoracic spine. Given the force from the fall and the higher likelihood of a Concurrent C-spine injury in this elderly patient on dialysis, I feel he should also have imaging of the cervical spine. The pt was alert and appropriate, and was absolutely certain he did not hit his head. Additionally, there was no evidence of acute head trauma, and as such, brain imaging was not ordered. The patient was quite kyphotic and given this and his age, I suspected that x-ray imaging would be of poor quality and be minimally diagnostic, given the patient's underlying condition in the spine. Therefore I did order imaging by CT scan, And scans showed no acute abnormalities. Patient was found to have an old T4 compression fracture and extensive degenerative changes throughout his spine. I felt the patient was stable for discharge home. We have discussed that he should continue his plans to go to dialysis today, as scheduled. Patient's son will pick him up. Departure - Departure Disposition: 01 Home, Self Care Clinical Impression: Fall from ground level Back contusion Qualifiers: Encounter type: initial encounter Laterality: unspecified laterality Qualified Code(s): S20.229A - Contusion of unspecified back wall of thorax, initial encounter Condition: Stable Instructions: ED Back Care Tips, ED Contusion Back Comments: Your CT scans show arthritis and some degeneration of your bones. Additionally, you have an old compression fracture of your fourth thoracic vertebra. However, there is no evidence of any new breaks or other significant injuries today. Please continue your plan to go to dialysis as scheduled.
--- NOTE | 2019-06-06 08:46 | CT Report ---
Reason: fall, pain Procedure Date: 06/06/2019 Accession Number: [id number] / [id number] Procedure: CT - CERVICAL SPINE WO CPT Code: Final Report FULL RESULT: EXAM: CT CERVICAL SPINE WITHOUT CONTRAST DATE: 06/06/2019 08:30 AM. HISTORY: Neck pain after fall COMPARISONS: None. TECHNIQUE: Thin-section axial images were acquired of the cervical spine without contrast. Post-processing: Coronal and sagittal reformats. Other: None. In accordance with CT protocol optimization, one or more of the following dose reduction techniques were utilized for this exam: automated exposure control, adjustment of mA and/or KV based on patient size, or use of iterative reconstructive technique. FINDINGS: Alignment: Right convex curvature centered at C5-C6. Grade 1 anterolisthesis of C4 on C5 measuring 4 mm. Bones: Osteopenic. The C3 and C4 in the C6 and C7 vertebral bodies and facet joints are ankylosed. No fracture is seen. Interspace Levels/Facets: C1-C2: Mild odontoaxial osteoarthritis. Mild right facet arthropathy. C2-C3: Bilateral facet arthropathy with ankylosis. No significant bony central canal stenosis or neural foraminal narrowing. C3-C4: Unremarkable. C4-C5: Mild disk height loss. Left facet arthropathy with ankylosis superimposed on grade 1 anterolisthesis without significant bony central canal stenosis or neural foraminal narrowing. C5-C6: Severe disk height loss. Disk osteophyte complex and mild left facet arthropathy causing mild bilateral bony neural foraminal narrowing. No significant bony central canal stenosis. C6-C7: Unremarkable. C7-T1: Unremarkable. Other: No paravertebral hematoma or edema is evident. The visualized portions of the lung apices are clear. IMPRESSION: 1. Osteopenia. No acute bony abnormality. 2. Right convex curvature centered at C5-C6. 3. 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 4. Multilevel degenerative disk disease and facet arthropathy, as detailed above, with associated grade 1 degenerative anterolisthesis at C4-C5. RADIA
--- NOTE | 2019-06-06 09:01 | CT Report ---
Reason: fall/pain Procedure Date: 06/06/2019 Accession Number: [id number] / [id number] Procedure: CT - THORACIC SPINE WO CPT Code: Final Report FULL RESULT: EXAM: CT THORACIC SPINE WITHOUT CONTRAST EXAM DATE: 06/06/2019 08:30 AM. CLINICAL HISTORY: Fall/pain. COMPARISONS: CT CERVICAL SPINE W/O 06/06/2019 8:[address] LUMBAR SPINE W/O 09/13/2018 10:28 AM. XR CHEST 2 VIEW 01/26/2019 4:22 PM. XR chest 2 view 11/01/2017 at 1101 hours. TECHNIQUE: Thin-section axial images were acquired of the thoracic spine from C7 to L1 without contrast. Post-processing: Coronal and sagittal reformats. Other: None. In accordance with CT protocol optimization, one or more of the following dose reduction techniques were utilized for this exam: automated exposure control, adjustment of mA and/or KV based on patient size, or use of iterative reconstructive technique. FINDINGS: Alignment: Mild, 25-degree, levoscoliosis is seen throughout the thoracic spine. Accentuated thoracic kyphosis is present. No spondylolisthesis. Bones: Diffuse osteopenia is present. There is an old mild wedge compression fracture of the T4 vertebral body. No definite acute fracture evident. Old fractures are seen involving several posterolateral left ribs. Disk Levels/Facets: C7-T1: Unremarkable. T1-T2: Unremarkable. T2-T3: Unremarkable. T3-T4: Unremarkable. Subtle osseous fusion of bilateral facet joints is noted. T4-T5: Unremarkable. Subtle osseous fusion of bilateral facet joints is noted. T5-T6: Unremarkable. T6-T7: Unremarkable. T7-T8: Unremarkable. T8-T9: Unremarkable. T9-T10: Unremarkable. T10-T11: Unremarkable. T11-T12: Unremarkable. T12-L1: Unremarkable. Musculature: Normal. No fatty atrophy. Other: Mild scattered vascular calcification is seen involving the visualized aorta and coronary arteries. Mild scattered interstitial thickening or scarring is seen predominating in the lower lobes. Subpleural area of consolidation is seen superiorly within the superior segment of the left lower lobe. Right-sided double-lumen dialysis catheter is in place with the tip in the superior right atrium. Surgical clips are partially visualized in the right upper retroperitoneum. IMPRESSION: 1. Mild thoracic kyphoscoliosis. 2. Old mild wedge compression fracture of the T4 vertebral body. 3. No acute thoracic spine injury appreciated. 4. No significant thoracic spondylosis or stenosis. 5. Oval linear area of subpleural consolidation superiorly within the superior segment of the left lower lobe of the lung. RADIA
[2019-06-06 09:27] VITALS: BP 179/97
== END 2019-06-06 11:31 | disposition home or self-care (01) ==
LOC: EDUNIT# → ED 07:42
DX: S20.229A Contusion of unspecified back wall of thorax, initial encounter (principal); W18.30XA Fall on same level, unspecified, initial encounter; Y93.01 Activity, walking, marching and hiking; Y92.009 Unspecified place in unspecified non-institutional (private) residence as the place of occurrence of the external cause; I10 Essential (primary) hypertension; E11.29 Type 2 diabetes mellitus with other diabetic kidney complication; N28.9 Disorder of kidney and ureter, unspecified; Z99.2 Dependence on renal dialysis; Z66 Do not resuscitate
CPT/HCPCS: 72125; 72128; 99284

== ENCOUNTER 2019-06-07 17:51 | Outpatient (CLI) | payer MEDICARE, OTHER | END 2019-06-07 17:52 | disposition short-term general hospital (02) | LOC: EMS 17:51 | PROVIDERS: ATTEND Surgery | DX: R53.1 Weakness (principal); R41.82 Altered mental status, unspecified; Z99.2 Dependence on renal dialysis | CPT/HCPCS: A0425; A0429 ==

== ENCOUNTER 2019-06-24 04:51 | Outpatient (CLI) | payer MEDICARE, OTHER | END 2019-06-24 04:52 | disposition critical access hospital (66) | LOC: EMS 04:51 | PROVIDERS: ATTEND Surgery | DX: M25.551 Pain in right hip (principal); M25.561 Pain in right knee; Z99.2 Dependence on renal dialysis; W19.XXXA Unspecified fall, initial encounter; Z91.81 History of falling; Y92.018 Other place in single-family (private) house as the place of occurrence of the external cause | CPT/HCPCS: A0425; A0429 ==

== ENCOUNTER 2019-06-24 05:08 | Emergency (ER) | payer MEDICARE, OTHER ==
--- NOTE | 2019-06-24 05:16 | ED Physician Documentation ---
History of Present Illness - Stated complaint Stated Complaint: GLF/HIP PAIN - History obtained from History obtained from: Patient (the patient is a 88 y/o m who p/w a cc of right hip pain after he slipped while wearing socks and suffered a mechanical fall. Patient uses a walker at baseline he has had a previous internal fixation of the right hip. ems reports that his family was alerted after he fell. he denies any other complaints, specifically denies cp, syncope, sob, head or neck pain, denies taking anticoagulants. the patient is a MWF dialysis patient and reports he underwent dialysis on tuesday and is schedule for dialysis tomorrow.On my exam currently the patient is denying any complaints and is requesting to be discharged home.), EMS (reports he was able to ambulate on the scene, no gross deformity.) PD PAST MEDICAL HISTORY - Past Medical History Cardiovascular: Hypertension, High cholesterol Respiratory: None Endocrine/Autoimmune: Type 2 diabetes GI: GERD, Ulcers : Dialysis, Other HEENT: Chronic vision loss Psych: None Musculoskeletal: Osteoarthritis Derm: None - Past Surgical History Past Surgical History: Yes General: Appendectomy Ortho: Knee replacement Cardiovascular: Other Neuro: Craniotomy HEENT: Tonsil/Adenoidectomy - Present Medications Home Medications: Ambulatory Orders Medication Instructions Recorded Confirmed Furosemide [Lasix] 1 tab ORAL 08/24/18 Metoprolol Tartrate 0.5 tab ORAL DAILY 08/24/18 08/24/18 Nitroglycerin [Nitrostat] 1 tab SL PRN PRN 08/24/18 08/24/18 Pantoprazole [Protonix] 40 mg PO BID 06/06/19 Diphenhydramine HCl [Allergy 5 - 10 ml DAILY PM PRN 06/24/19 06/24/19 Relief] Furosemide 80 mg 06/24/19 oxyCODONE [Roxicodone] 5 mg Q4HR PRN 06/24/19 06/24/19 - Allergies Allergies/Adverse Reactions: Allergies Allergy/AdvReac Type Severity Reaction Status Date / Time niacin Allergy Severe Hives Verified 06/24/19 05:28 - Social History Does the pt smoke?: No Smoking Status: Never smoker Does the pt drink ETOH?: No Does the pt have substance abuse?: No - Immunizations Immunizations are current?: Yes - POLST Patient has POLST: No POLST Status: DNR PD ED PE NORMAL - Vitals Vital signs reviewed: Yes - General General: Alert and oriented X 3, No acute distress, Well developed/nourished - HEENT HEENT: PERRL, Moist mucous membranes - Neck Neck: Supple, no meningeal sign - Cardiac Cardiac: RRR, No murmur, Strong equal pulses - Respiratory Respiratory: No respiratory distress, Clear bilaterally - Abdomen Abdomen: Normal bowel sounds, Soft, Non tender, Non distended, No organomegaly, Other (No midline abdominal pulsatile mass) - Back Back: No spinal TTP - Derm Derm: Warm and dry - Extremities Extremities: No deformity, No tenderness to palpate, No edema, Other (There is no tenderness on over the pelvis or the greater trochanter exam of the right hip no point tenderness there is some decreased range of motion on flexion and extension as well as internal and external rotation as well as abduction and abduction however there is no leg length discrepancy his compartments are set soft is neurovascular intact is palpable DP and PT pulses.Patient is able to bear weight. He is able to ambulateWith a walker.) - Neuro Neuro: Alert and oriented X 3 - Psych Psych: Normal mood, Normal affect Results - Vitals Vitals: Vital Signs - 24 hr 06/24/19 05:15 Temperature 36.9 C Heart Rate 56 L Respiratory 16 Rate Blood Pressure 182/94 H O2 Saturation 96 Oxygen O2 Source [With Activity] Nasal cannula O2 Source [Without Activity] Room air O2 Source Room air PD MEDICAL DECISION MAKING - ED course Complexity details: considered differential (Patient suffered a mechanical fall while wearing his socks he is able to ambulate here with assistance which is at his baseline there is no leg length discrepancy x-rays are unremarkable I did offer additional imaging however the patient would like to be discharged home. He does have a family member who stays with him at home.Patient will follow-up with his primary care provider tomorrow as well as receive scheduled dialysis tomorrow.) Departure - Departure Disposition: 01 Home, Self Care Clinical Impression: Pain in right hip Fall Qualifiers: Encounter type: initial encounter Qualified Code(s): W19.XXXA - Unspecified fall, initial encounter Condition: Stable Instructions: Falls Risks Prevent Follow-Up: Hakeem Denise DO [Primary Care Provider] - Tomorrow
[2019-06-24 05:22] VITALS: BP 182/94
--- NOTE | 2019-06-24 06:07 | XRAY Report ---
Reason: right hip pain Procedure Date: 06/24/2019 Accession Number: [id number] / [id number] Procedure: XR - Hip w/Pelvis 2-3V RT CPT Code: Final Report FULL RESULT: EXAM: RIGHT HIP RADIOGRAPHY EXAM DATE: 06/24/2019 05:35 AM HISTORY: Right hip pain after a fall. COMPARISONS: HIP W/PELVIS 2-3V LT 12/17/2018 1:03 PM. TECHNIQUE: AP pelvis and 2 views of the right hip. FINDINGS: Bones: Osteopenia is present. No acute fractures or bone lesion. Hardware in the right proximal femur appears unremarkable. Joints: Normal. No dislocation. The hip joint space is preserved. Soft Tissues: Normal. No soft tissue swelling. IMPRESSION: Osteopenia. No acute fracture on x-ray imaging. Note: Osteopenia can limit detection of trabecular fracture. If the patient cannot ambulate, recommend MRI hip to exclude occult fracture. RADIA
== END 2019-06-24 06:43 | disposition home or self-care (01) ==
LOC: EDUNIT# → ED 05:08
DX: M25.551 Pain in right hip (principal); I10 Essential (primary) hypertension; E11.29 Type 2 diabetes mellitus with other diabetic kidney complication; Z99.2 Dependence on renal dialysis; Z66 Do not resuscitate
CPT/HCPCS: 99282; 99283

== ENCOUNTER 2019-06-29 13:00 | Outpatient (CLI) | payer MEDICARE, OTHER | END 2019-06-29 13:01 | disposition EMS.NT | LOC: EMS 13:00 | PROVIDERS: ATTEND Surgery | DX: M25.551 Pain in right hip (principal); M25.561 Pain in right knee; Z91.81 History of falling; Z99.2 Dependence on renal dialysis; W19.XXXA Unspecified fall, initial encounter; Y92.018 Other place in single-family (private) house as the place of occurrence of the external cause | CPT/HCPCS: A0425; A0429 ==

== ENCOUNTER 2019-06-29 16:44 | Outpatient (CLI) | payer MEDICARE, OTHER | END 2019-06-29 16:45 | disposition critical access hospital (66) | LOC: EMS 16:44 | PROVIDERS: ATTEND Surgery | DX: M54.9 Dorsalgia, unspecified (principal); R26.81 Unsteadiness on feet; W19.XXXA Unspecified fall, initial encounter; Y92.59 Other trade areas as the place of occurrence of the external cause ==

== ENCOUNTER 2019-06-29 17:03 | Emergency (ER) | payer MEDICARE, OTHER ==
--- NOTE | 2019-06-29 17:57 | ED Physician Documentation ---
History of Present Illness - Stated complaint Stated Complaint: FLANK PAIN - Chief complaint Chief Complaint: Back Pain - History obtained from History obtained from: Patient, EMS - History of Present Illness Timing: Yesterday Pain level max: 6 Pain level now: 3 - Additonal information Additional information: 88-year-old male who fell yesterday and then fell again today. He states that he fell yesterday and is having pain in his upper back. He states he fell again today while going to dialysis and "rakel" his back. States sat down hard on pavement and is having continued mid back pain. The dialysis nurse was concerned, so called 911. Initially the patient did not want to come with EMS to the emergency department, but eventually acquiesced. Worse with movement and better with rest. Did not hit his head. No neck pain. No focal neurological deficits. He states he has felt weak for some time. He uses a walker at all times Review of Systems Ten Systems: 10 systems reviewed and negative Constitutional: denies: Fever, Chills Nose: denies: Rhinorrhea / runny nose, Congestion Respiratory: denies: Cough GI: denies: Abdominal Pain, Nausea, Vomiting, Diarrhea : denies: Dysuria Skin: denies: Rash Musculoskeletal: denies: Neck pain Neurologic: denies: Focal weakness, Numbness, Headache PD PAST MEDICAL HISTORY - Past Medical History Past Medical History: Yes Cardiovascular: Hypertension, High cholesterol Respiratory: None Neuro: None Endocrine/Autoimmune: Type 2 diabetes GI: GERD, Ulcers : Dialysis, Other HEENT: Chronic vision loss Psych: None Musculoskeletal: Osteoarthritis Derm: None - Past Surgical History Past Surgical History: Yes General: Appendectomy Ortho: Knee replacement Cardiovascular: Other Neuro: Craniotomy HEENT: Tonsil/Adenoidectomy - Present Medications Home Medications: Ambulatory Orders Medication Instructions Recorded Confirmed Furosemide [Lasix] 1 tab ORAL 08/24/18 Metoprolol Tartrate 0.5 tab ORAL DAILY 08/24/18 08/24/18 Nitroglycerin [Nitrostat] 1 tab SL PRN PRN 08/24/18 08/24/18 Pantoprazole [Protonix] 40 mg PO BID 06/06/19 Diphenhydramine HCl [Allergy 5 - 10 ml DAILY PM PRN 06/24/19 06/24/19 Relief] Furosemide 80 mg 06/24/19 oxyCODONE [Roxicodone] 5 mg Q4HR PRN 06/24/19 06/24/19 Cefdinir 300 mg PO DAILY #10 capsule 06/29/19 - Allergies Allergies/Adverse Reactions: Allergies Allergy/AdvReac Type Severity Reaction Status Date / Time niacin Allergy Severe Hives Verified 06/24/19 05:28 - Social History Does the pt smoke?: No Smoking Status: Never smoker Does the pt drink ETOH?: No Does the pt have substance abuse?: No - Immunizations Immunizations are current?: Yes - POLST Patient has POLST: No POLST Status: DNR PD ED PE NORMAL - Vitals Vital signs reviewed: Yes - General General: Alert and oriented X 3, No acute distress, Well developed/nourished - HEENT HEENT: Moist mucous membranes - Neck Neck: Supple, no meningeal sign - Cardiac Cardiac: RRR, Strong equal pulses - Respiratory Respiratory: No respiratory distress, Clear bilaterally - Abdomen Abdomen: Soft, Non tender, Non distended - Back Back: Other (No midline tenderness to palpation or percussion. No step-off or deformity. He points to around T8 as the source of his pain. No ecchymosis. No crepitus) - Derm Derm: Warm and dry, No rash - Extremities Extremities: No deformity, No tenderness to palpate, No edema, No calf tenderness / cord - Neuro Neuro: Alert and oriented X 3, [facility] 2-12 intact, No motor deficit, No sensory deficit, Normal speech - Psych Psych: Normal mood, Normal affect Results - Vitals Vitals: Vital Signs - 24 hr 06/29/19 06/29/19 06/29/19 17:09 18:27 20:33 Temperature 36.6 C Heart Rate 59 L 59 L 60 Respiratory 16 14 18 Rate Blood Pressure 167/98 H 143/95 H 178/94 H O2 Saturation 98 99 97 Oxygen O2 Source [] Nasal cannula O2 Source [] Room air O2 Source Room air - Labs Labs: Laboratory Tests 06/29/19 06/29/19 06/29/19 17:49 17:49 18:50 WBC 7.7 RBC 3.93 L Hgb 11.3 L Hct 37.1 L MCV 94.4 H MCH 28.8 MCHC 30.5 L RDW 16.8 H Plt Count 178 MPV 9.4 Neut # (Auto) 5.0 Lymph # (Auto) 1.1 L [place] # (Auto) 1.0 Eos # (Auto) 0.3 Baso # (Auto) 0.0 Absolute Nucleated RBC 0.00 Nucleated RBC % 0.0 Sodium 136 Potassium 4.3 Chloride 101 Carbon Dioxide 28 Anion Gap 7.0 BUN 18 Creatinine 3.5 H Estimated GFR (MDRD) 17 L Glucose 121 H Calcium 9.1 Total Bilirubin 0.5 AST 18 ALT 12 Alkaline Phosphatase 87 Total Protein 7.2 Albumin 3.2 Globulin 4.0 Albumin/Globulin Ratio 0.8 L Lipase 46 Urine Color YELLOW Urine Clarity CLEAR Urine pH 8.0 H Ur Specific [place] 1.020 Urine Protein 100 H Urine Glucose (UA) NEGATIVE Urine Ketones NEGATIVE Urine Occult Blood NEGATIVE Urine Nitrite NEGATIVE Urine Bilirubin NEGATIVE Urine Urobilinogen 0.2 (NORMAL) Ur Leukocyte Esterase NEGATIVE Urine RBC 0-5 Urine WBC 11-25 H Ur Squamous Epith Cells RARE Squamous Urine Bacteria Few Urine Yeast PRESENT Ur Microscopic Review INDICATED Urine Culture Comments INDICATED - Rads (name of study) CT thoracic spine Radiology: Prelim report reviewed, EMP read contemporaneously, See rad report (1. No acute thoracic spine abnormalities, noting chronic T4 compression fracture, spondylosis, and mild levoscoliosis. 2. Small persistent infiltrate, superior segment left lower lobe. ) PD MEDICAL DECISION MAKING - ED course Complexity details: reviewed old records, reviewed results, re-evaluated patient, considered differential, d/w patient, d/w family ED course: 88-year-old male presents the emergency department with several falls over the past few months. No acute findings on CT scan of thoracic spine. No other acute injuries. Does have a UTI and given Rocephin for this. Tolerating p.o. without difficulty. Uses a walker at his baseline. We will treat him for the UTI. He has well-appearing, nontoxic. Afebrile. No altered mental status. No indication for admission. No urosepsis. Unclear persistent infiltrate in the superior segment of the left lower lobe. Recommend that he follow-up with his doctor for this. Patient counseled regarding signs and symptoms for which I believe and urgent re-evaluation would be necessary. Patient with good understanding of and agreement to plan and is comfortable going home at this time This document was made in part using voice recognition software. While efforts are made to proofread this document, sound alike and grammatical errors may occur. Departure - Departure Disposition: Home, Self Care Clinical Impression: Generalized weakness, Pulmonary infiltrate UTI (urinary tract infection) Qualifiers: Urinary tract infection type: acute cystitis Hematuria presence: without hematuria Qualified Code(s): N30.00 - Acute cystitis without hematuria Back pain Qualifiers: Back pain location: thoracic back pain Chronicity: acute Back pain laterality: bilateral Qualified Code(s): M54.6 - Pain in thoracic spine Condition: Good Instructions: ED UTI Cystitis Male Follow-Up: Hakeem Denise DO [Primary Care Provider] - Within 3 Days Prescriptions: Cefdinir 300 mg PO DAILY #10 capsule Comments: Take all antibiotics until gone. Follow-up with your doctor in 3 to 4 days for a recheck. Continue to use your walker at home. Return if you worsen You should also have a repeat chest x-ray with your doctor after the antibiotics are finished.
[2019-06-29 17:59] LABS: BASOPHILS % (AUTO) 0.5 %; EOSINOPHILS # (AUTO) 0.3 10^3/uL (0.0-0.7); EOSINOPHILS % (AUTO) 4.2 %; HGB - HEMOGLOBIN 11.3 g/dL (14.0-18.0); LYMPHOCYTES # (AUTO) 1.1 10^3/uL (1.5-3.5); LYMPHOCYTES % (AUTO) 14.5 %; MEAN CORPUSCULAR HEMOGLOBIN 28.8 pg (27.0-31.0); MEAN CORPUSCULAR HGB CONC 30.5 g/dL (32.0-36.0); MEAN CORPUSCULAR VOLUME 94.4 fL (80.0-94.0); MEAN PLATELET VOLUME 9.4 fL (7.4-11.4); MONOCYTES % (AUTO) 13.6 %; NEUTROPHILS % (AUTO) 65.1 %; PLT - PLATELET COUNT 178 10^3/uL (130-450); RED BLOOD COUNT 3.93 10^6/uL (4.70-6.10); RED CELL DISTRIBUTION WIDTH 16.8 % (12.0-15.0); WHITE BLOOD COUNT 7.7 x10^3/uL (4.8-10.8)
[2019-06-29 18:15] LABS: ALBUMIN 3.2 g/dL (3.2-5.5); ALBUMIN/GLOBULIN RATIO 0.8 (1.0-2.2); BILIRUBIN,TOTAL 0.5 mg/dL (0.2-1.0); CALCIUM 9.1 mg/dL (8.5-10.3); CREATININE 3.5 mg/dL (0.6-1.2); TOTAL PROTEIN 7.2 g/dL (6.7-8.2)
--- NOTE | 2019-06-29 18:33 | CT Report ---
Reason: fall, back pain Procedure Date: 06/29/2019 Accession Number: [id number] / [id number] Procedure: CT - THORACIC SPINE WO CPT Code: Final Report FULL RESULT: EXAM: CT THORACIC SPINE WITHOUT CONTRAST EXAM DATE: 06/29/2019 06:03 PM. CLINICAL HISTORY: Fall. Back pain. COMPARISONS: THORACIC SPINE W/O 06/06/2019 8:11 AM. TECHNIQUE: Thin-section axial images were acquired of the thoracic spine from C7 to L1 without contrast. Post-processing: Coronal and sagittal reformats. Other: None. In accordance with CT protocol optimization, one or more of the following dose reduction techniques were utilized for this exam: automated exposure control, adjustment of mA and/or KV based on patient size, or use of iterative reconstructive technique. FINDINGS: Alignment: Stable levoscoliosis. No spondylolisthesis. Bones: Stable chronic T4 compression fracture. Old bilateral rib fractures. No new fractures identified. Disk Levels/Facets: Spondylosis with scattered spurring and disk space narrowing. No marked facet arthropathy. Other: Persistent infiltrate, superior segment left lower lobe. No acute findings. IMPRESSION: 1. No acute thoracic spine abnormalities, noting chronic T4 compression fracture, spondylosis, and mild levoscoliosis. 2. Small persistent infiltrate, superior segment left lower lobe. RADIA
[2019-06-29 19:01] LABS: BILIRUBIN,URINE NEGATIVE (NEGATIVE); GLUCOSE, URINE (UA) NEGATIVE (NEGATIVE); KETONES,URINE (UA) NEGATIVE (NEGATIVE); LEUKOCYTE ESTERASE, URINE NEGATIVE (NEGATIVE); NITRITE,URINE NEGATIVE (NEGATIVE); OCCULT BLOOD,URINE NEGATIVE (NEGATIVE); PROTEIN,URINE 100 mg/dL (NEGATIVE); UROBILINOGEN,URINE 0.2 (NORMAL) E.U./dL (NORMAL)
[2019-06-29 19:02] LABS: CLARITY,URINE CLEAR (CLEAR)
[2019-06-29 19:13] LABS: RBC,URINE 0-5 /HPF (0-5)
[2019-06-29 19:14] LABS: BACTERIA,URINE Few /HPF (None Seen); SQUAMOUS EPITHELIAL CELL,UR RARE Squamous (<= Few); YEAST,URINE PRESENT
[2019-06-29] MEDS ORDERED: cefTRIAXone 1 GM VIAL IVP STA (19:53)
[2019-06-29 23:10] VITALS: BP 158/94
== END 2019-06-29 23:09 | disposition home or self-care (01) ==
LOC: EDUNIT# → ED 17:03
DX: N30.00 Acute cystitis without hematuria (principal); R91.8 Other nonspecific abnormal finding of lung field; R53.1 Weakness; M54.6 Pain in thoracic spine; I12.0 Hypertensive chronic kidney disease with stage 5 chronic kidney disease or end stage renal disease; E11.22 Type 2 diabetes mellitus with diabetic chronic kidney disease; N18.6 End stage renal disease; Z99.2 Dependence on renal dialysis
CPT/HCPCS: 36415; 72128; 80053; 81001; 81003; 83690; 85025; 87086; 96374; 99284

== ENCOUNTER 2019-07-30 09:43 | Emergency (ER) | payer MEDICARE, OTHER ==
--- NOTE | 2019-07-30 10:05 | ED Physician Documentation ---
PD HPI SYNCOPE - Stated complaint Stated Complaint: FALL - History obtained from History obtained from: Patient, EMS - History of Present Illness Witnessed: Unwitnessed Timing - onset: Yesterday (He states he has been having more frequent falls in the past month. He usually gets around with a walker and states he feels okay most of the time. He has had episodes of feeling abruptly lightheaded while standing or walking and unable to maintain posture. He does not feel that he is passed out with each episode and does remember most of them. His most recent episode was yesterday and hurt the back of his left shoulder. He states he did have breakfast this morning. He is due for dialysis this afternoon and had not missed any episodes. He had had some medication changes a month ago and is not sure what they are and we will try to track that down. Otherwise no recent cold or flu symptoms.) Duration: Seconds (feels weak and legs give out, causing him to fall/slump at times. Describes some element of dizziness as well.) Preceding symptoms: Generalized weakness. No: Headache, Chest pain, Nausea / vomiting Associated symptoms: No: Headache, Chest pain, Palpitations, Dyspnea, Nausea / vomiting Contributing factors: Recent med change (he says he had some change meds in past couple months; will try to get info from [place] about that.). No: Decreased PO intake, Noxious stimulae Review of Systems Constitutional: denies: Fever, Chills Nose: denies: Rhinorrhea / runny nose, Congestion Throat: denies: Sore throat Respiratory: denies: Cough GI: denies: Abdominal Pain, Nausea, Vomiting, Diarrhea, Bloody / black stool : denies: Dysuria Musculoskeletal: reports: Joint pain (posterior left shoulder) Neurologic: denies: Focal weakness, Altered mental status, Headache, Head injury PD PAST MEDICAL HISTORY - Past Medical History Cardiovascular: Hypertension, High cholesterol Respiratory: None Neuro: None Endocrine/Autoimmune: Type 2 diabetes GI: GERD, Ulcers : Dialysis, Other HEENT: Chronic vision loss Psych: None Musculoskeletal: Osteoarthritis Derm: None - Past Surgical History Past Surgical History: Yes General: Appendectomy Ortho: Knee replacement Cardiovascular: Other Neuro: Craniotomy (for brain tumor, frontal area, years ago) HEENT: Tonsil/Adenoidectomy - Present Medications Home Medications: Ambulatory Orders Medication Instructions Recorded Confirmed Furosemide [Lasix] 1 tab ORAL 08/24/18 Metoprolol Tartrate 0.5 tab ORAL DAILY 08/24/18 08/24/18 Nitroglycerin [Nitrostat] 1 tab SL PRN PRN 08/24/18 08/24/18 Pantoprazole [Protonix] 40 mg PO BID 06/06/19 Diphenhydramine HCl [Allergy 5 - 10 ml DAILY PM PRN 06/24/19 06/24/19 Relief] Furosemide 80 mg 06/24/19 oxyCODONE [Roxicodone] 5 mg Q4HR PRN 06/24/19 06/24/19 Cefdinir 300 mg PO DAILY #10 capsule 06/29/19 - Allergies Allergies/Adverse Reactions: Allergies Allergy/AdvReac Type Severity Reaction Status Date / Time niacin Allergy Severe Hives Verified 06/24/19 05:28 - Living Situation Living Situation: reports: With family Living Arrangement: reports: At home - Social History Does the pt smoke?: No Smoking Status: Never smoker Does the pt drink ETOH?: No Does the pt have substance abuse?: No - Immunizations Immunizations are current?: Yes - POLST Patient has POLST: No POLST Status: DNR PD ED PE NORMAL - Vitals Vital signs reviewed: Yes - General General: No acute distress, Well developed/nourished. No: Alert and oriented X 3 (alert and conversant. Oriented to person and place, does not recall month. ) - HEENT HEENT: Atraumatic, Pharynx benign, Other (old frontal surgical scar noted. ) - Neck Neck: Supple, no meningeal sign, No bony TTP, No adenopathy - Cardiac Cardiac: RRR, No murmur - Respiratory Respiratory: Clear bilaterally - Abdomen Abdomen: Normal bowel sounds, Soft, Non tender, Non distended - Back Back: No CVA TTP - Derm Derm: Normal color, Warm and dry, No rash - Extremities Extremities: Normal ROM s pain, No edema, No calf tenderness / cord, Other (left posterior shoulder and suprascapular area with some tenderness, and guarded ROM of the left shoulder. No noted deformity. Pain with abduction against resistance. 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 No: ST elevation c/w ischemia, ST depression - Labs Labs: Laboratory Tests 07/30/19 07/30/19 07/30/19 10:20 10:20 10:20 WBC 9.2 RBC 4.16 L Hgb 12.7 L Hct 41.0 L MCV 98.6 H MCH 30.5 MCHC 31.0 L RDW 18.2 H Plt Count 163 MPV 9.8 Neut # (Auto) 6.7 H Lymph # (Auto) 1.1 L [place] # (Auto) 1.0 Eos # (Auto) 0.4 Baso # (Auto) 0.0 Absolute Nucleated RBC 0.00 Nucleated RBC % 0.0 Sodium 139 Potassium 4.9 Chloride 104 Carbon Dioxide 22 Anion Gap 13.0 BUN 48 H Creatinine 6.4 H Estimated GFR (MDRD) 8 L Glucose 111 H Calcium 9.5 Magnesium 1.8 Total Bilirubin 0.7 AST 28 ALT 17 Alkaline Phosphatase 86 Troponin I High Sens 40.6 H* B-Natriuretic Peptide Total Protein 8.0 Albumin 3.4 Globulin 4.6 H Albumin/Globulin Ratio 0.7 L Lipase 59 H TSH 07/30/19 07/30/19 07/30/19 10:20 10:20 12:40 WBC RBC Hgb Hct MCV MCH MCHC RDW Plt Count MPV Neut # (Auto) Lymph # (Auto) [place] # (Auto) Eos # (Auto) Baso # (Auto) Absolute Nucleated RBC Nucleated RBC % Sodium Potassium Chloride Carbon Dioxide Anion Gap BUN Creatinine Estimated GFR (MDRD) Glucose Calcium Magnesium Total Bilirubin AST ALT Alkaline Phosphatase Troponin I High Sens 41.9 H* B-Natriuretic Peptide 1085 H Total Protein Albumin Globulin Albumin/Globulin Ratio Lipase TSH 2.21 - Rads (name of study) chest xray Radiology: Prelim report reviewed (no acute process), See rad report left shoulder Radiology: Prelim report reviewed (no fractures), See rad report head CT Radiology: Prelim report reviewed (frontal encephalomalacia. No acute process. ), See rad report PD MEDICAL DECISION MAKING - ED course Complexity details: considered differential, d/w patient Departure - Departure Disposition: 01 Home, Self Care Clinical Impression: Frequent falls, General weakness Left shoulder strain Qualifiers: Encounter type: initial encounter Qualified Code(s): S46.912A - Strain of unspecified muscle, fascia and tendon at shoulder and upper arm level, left arm, initial encounter Condition: Stable Record reviewed to determine appropriate education?: Yes Follow-Up: Hakeem Denise, DO [Provider Admit Priv/Credential] - Comments: Continue usual medications with the exception of if you are on a "statin" medicine for cholesterol, to discontinue that as sometimes I will increase leg weakness and muscle weakness. Continue dialysis and such as planned. Tylenol 4 times daily for next few days, then as needed for pains. Discharge Date/Time: 07/30/19 13:47
[2019-07-30 10:32] LABS: BASOPHILS % (AUTO) 0.4 %; EOSINOPHILS # (AUTO) 0.4 10^3/uL (0.0-0.7); EOSINOPHILS % (AUTO) 3.8 %; HGB - HEMOGLOBIN 12.7 g/dL (14.0-18.0); LYMPHOCYTES # (AUTO) 1.1 10^3/uL (1.5-3.5); LYMPHOCYTES % (AUTO) 11.4 %; MEAN CORPUSCULAR HEMOGLOBIN 30.5 pg (27.0-31.0); MEAN CORPUSCULAR VOLUME 98.6 fL (80.0-94.0); MEAN PLATELET VOLUME 9.8 fL (7.4-11.4); MONOCYTES % (AUTO) 10.5 %; NEUTROPHILS # (AUTO) 6.7 10^3/uL (1.5-6.6); NEUTROPHILS % (AUTO) 72.4 %; PLT - PLATELET COUNT 163 10^3/uL (130-450); RED BLOOD COUNT 4.16 10^6/uL (4.70-6.10); RED CELL DISTRIBUTION WIDTH 18.2 % (12.0-15.0); WHITE BLOOD COUNT 9.2 x10^3/uL (4.8-10.8)
[2019-07-30 10:45] LABS: ALBUMIN 3.4 g/dL (3.2-5.5); ALBUMIN/GLOBULIN RATIO 0.7 (1.0-2.2); BILIRUBIN,TOTAL 0.7 mg/dL (0.2-1.0); CALCIUM 9.5 mg/dL (8.5-10.3); CREATININE 6.4 mg/dL (0.6-1.2); MAGNESIUM 1.8 mg/dL (1.7-2.8)
--- NOTE | 2019-07-30 10:59 | CT Report ---
Reason: recent fall and struck head; lightheaded Procedure Date: 07/30/2019 Accession Number: [id number] / [id number] Procedure: CT - HEAD WO CPT Code: Final Report FULL RESULT: PROCEDURE: HEAD WO INDICATIONS: recent fall and struck head; lightheaded TECHNIQUE: Noncontrast 4.5 mm thick angled axial sections acquired from the foramen magnum to the vertex. For radiation dose reduction, the following was used: automated exposure control, adjustment of mA and/or kV according to patient size. COMPARISON: 03/23/2018 FINDINGS: Image quality: Mildly degraded by patient motion artifact. CSF spaces: Basal cisterns are patent. No extra-axial fluid collections. The ventricles are symmetric in size and shape. Brain: No intracranial bleeds or masses. Encephalomalacia involving the frontal lobes is stable compared to the prior CT scan. There is cerebral volume loss for age, with resultant ventricular and sulcal prominence. There are periventricular and deep white matter chronic small vessel ischemic changes. There is intracranial internal carotid artery and vertebral artery atherosclerosis. Skull and face: Postsurgical changes compatible with prior bifrontal craniotomy are stable compared to the prior CT scan. The visualized facial bones appear intact, without suspicious lesions. Sinuses: Visualized sinuses and mastoids are clear. IMPRESSION: 1. No acute intracranial disease process. 2. No intracranial hemorrhage. Reviewed by: Sonia Chandler MD, PhD on 07/30/2019 10:55 AM PDT Approved by: Sonia Chandler MD, PhD on 07/30/2019 10:55 AM PDT Station ID: [id number]
--- NOTE | 2019-07-30 11:33 | XRAY Report ---
Reason: recent fall with left shoulder pain Procedure Date: 07/30/2019 Accession Number: [id number] / [id number] Procedure: XR - Shoulder 3 View LT CPT Code: Final Report FULL RESULT: PROCEDURE: Shoulder 3 View LT INDICATIONS: recent fall with left shoulder pain TECHNIQUE: 3 views of the shoulder were acquired. COMPARISON: None. FINDINGS: Bones: No fractures or dislocations. No suspicious bony lesions. Visualized ribs appear intact. Soft tissues: No suspicious soft tissue calcifications. IMPRESSION: No acute fracture. No osseous lesion. If symptoms and/or clinical suspicion for pathology continue, further assessment with repeat plain films, or advanced imaging (e.g., CT, MRI, or bone scan) is recommended for further assessment. Reviewed by: Alexandru Carl MD on 07/30/2019 11:28 AM PDT Approved by: Alexandru Carl MD on 07/30/2019 11:28 AM PDT Station ID: [id number]
--- NOTE | 2019-07-30 11:34 | XRAY Report ---
Reason: Chest Pain Procedure Date: 07/30/2019 Accession Number: [id number] / [id number] Procedure: XR - Chest 1 View X-Ray CPT Code: 12256 Final Report FULL RESULT: PROCEDURE: Chest 1 View X-Ray INDICATIONS: Chest Pain TECHNIQUE: One view of the chest was acquired. COMPARISON: None FINDINGS: Surgical changes and devices: There is a right internal jugular vein hemodialysis catheter, tip of which is at the cavoatrial junction. Lungs and pleura: No pleural effusions or pneumothorax. Lung volumes are low. There is moderate patchy bilateral pulmonary opacity. Mediastinum: Mediastinal contours appear normal. Heart size is normal. Bones and chest wall: No suspicious bony lesions. Overlying soft tissues appear unremarkable. IMPRESSION: Low lung volumes with moderate bilateral pneumonia versus pulmonary edema. Reviewed by: Alexandru Carl MD on 07/30/2019 11:29 AM PDT Approved by: Alexandru Carl MD on 07/30/2019 11:29 AM PDT Station ID: [id number]
[2019-07-30] MEDS ORDERED: MECLIZINE 12.5 MG TABLET PO STA (12:13)
[2019-07-30 13:08] VITALS: BP 189/82
== END 2019-07-30 13:47 | disposition home or self-care (01) ==
LOC: EDUNIT# → ED 09:43
DX: S46.912A Strain of unspecified muscle, fascia and tendon at shoulder and upper arm level, left arm, initial encounter (principal); W19.XXXA Unspecified fall, initial encounter; Z91.81 History of falling; Y92.009 Unspecified place in unspecified non-institutional (private) residence as the place of occurrence of the external cause; R53.1 Weakness; R42 Dizziness and giddiness; I10 Essential (primary) hypertension; E11.9 Type 2 diabetes mellitus without complications; Z99.2 Dependence on renal dialysis
CPT/HCPCS: 36415; 70450; 71045; 73030; 80053; 83690; 83735; 83880; 84443; 84484; 85025; 93005; 99284; A9270

== ENCOUNTER 2019-08-04 10:12 | Outpatient (CLI) | payer MEDICARE, OTHER | END 2019-08-04 10:13 | disposition critical access hospital (66) | LOC: EMS 10:12 | PROVIDERS: ATTEND Surgery | DX: M25.512 Pain in left shoulder (principal); S51.012A Laceration without foreign body of left elbow, initial encounter; W18.39XA Other fall on same level, initial encounter; W22.8XXA Striking against or struck by other objects, initial encounter; Y92.003 Bedroom of unspecified non-institutional (private) residence as the place of occurrence of the external cause | CPT/HCPCS: A0425; A0429 ==

== ENCOUNTER 2019-08-04 10:28 | Emergency (ER) | payer MEDICARE, OTHER ==
[2019-08-04 12:45] LABS: BASOPHILS % (AUTO) 0.4 %; EOSINOPHILS # (AUTO) 0.2 10^3/uL (0.0-0.7); EOSINOPHILS % (AUTO) 3.1 %; HGB - HEMOGLOBIN 12.7 g/dL (14.0-18.0); LYMPHOCYTES # (AUTO) 1.3 10^3/uL (1.5-3.5); LYMPHOCYTES % (AUTO) 17.4 %; MEAN CORPUSCULAR HEMOGLOBIN 30.3 pg (27.0-31.0); MEAN CORPUSCULAR HGB CONC 31.1 g/dL (32.0-36.0); MEAN CORPUSCULAR VOLUME 97.6 fL (80.0-94.0); MEAN PLATELET VOLUME 9.6 fL (7.4-11.4); MONOCYTES # (AUTO) 0.8 10^3/uL (0.0-1.0); MONOCYTES % (AUTO) 10.6 %; NEUTROPHILS # (AUTO) 5.2 10^3/uL (1.5-6.6); NEUTROPHILS % (AUTO) 67.6 %; PLT - PLATELET COUNT 144 10^3/uL (130-450); RED BLOOD COUNT 4.19 10^6/uL (4.70-6.10); RED CELL DISTRIBUTION WIDTH 17.7 % (12.0-15.0); WHITE BLOOD COUNT 7.6 x10^3/uL (4.8-10.8)
--- NOTE | 2019-08-04 12:45 | ED Physician Documentation ---
PD HPI UPPER EXT INJURY - Stated complaint Stated Complaint: GLF - Chief complaint Chief Complaint: Trauma Ext - History obtained from History obtained from: Patient, EMS - History of Present Illness Location: Left, Shoulder Type of injury: Fall Where injury occurred: Home Timing - onset: Today Timing - duration: Minutes Timing - details: Abrupt onset, Still present Improved by: Rest, Immobilization Worsened by: Moving, Palpating Associated symptoms: No: Weakness, Numbness, Tingling, Swelling, Discolored Contributing factors: No: Anticoagulated Similar symptoms before: Diagnosis (GLF) Recently seen: Other (getting dialysis for the past year) - Additonal information Additional information: 88 y/o male on hemo-dialysis was in his home this morning getting up to use the facilities with his walker when he lost control of the walker and fell. He fell onto his left side and has injured his left shoulder. He has pain to the shoulder and the back of the shoulder with palpation and movement. He is brought in by ambulance. Review of Systems Constitutional: denies: Fever Eyes: denies: Decreased vision Ears: denies: Ear pain Nose: denies: Rhinorrhea / runny nose, Congestion Throat: denies: Sore throat Cardiac: denies: Chest pain / pressure, Palpitations Respiratory: denies: Dyspnea, Cough GI: denies: Abdominal Pain, Nausea, Vomiting, Constipation, Diarrhea : denies: Dysuria, Frequency PD PAST MEDICAL HISTORY - Past Medical History Cardiovascular: Hypertension, High cholesterol Respiratory: None Neuro: None Endocrine/Autoimmune: Type 2 diabetes GI: GERD, Ulcers : Dialysis, Other HEENT: Chronic vision loss Psych: None Musculoskeletal: Osteoarthritis Derm: None - Past Surgical History Past Surgical History: Yes General: Appendectomy Ortho: Knee replacement Cardiovascular: Other Neuro: Craniotomy (for brain tumor, frontal area, years ago) HEENT: Tonsil/Adenoidectomy - Present Medications Home Medications: Ambulatory Orders Medication Instructions Recorded Confirmed Furosemide [Lasix] 1 tab ORAL 08/24/18 Metoprolol Tartrate 0.5 tab ORAL DAILY 08/24/18 08/24/18 Nitroglycerin [Nitrostat] 1 tab SL PRN PRN 08/24/18 08/24/18 Pantoprazole [Protonix] 40 mg PO BID 06/06/19 Diphenhydramine HCl [Allergy 5 - 10 ml DAILY PM PRN 06/24/19 06/24/19 Relief] Furosemide 80 mg 06/24/19 oxyCODONE [Roxicodone] 5 mg Q4HR PRN 06/24/19 06/24/19 Cefdinir 300 mg PO DAILY #10 capsule 06/29/19 - Allergies Allergies/Adverse Reactions: Allergies Allergy/AdvReac Type Severity Reaction Status Date / Time niacin Allergy Severe Hives Verified 08/04/19 10:37 - Social History Does the pt smoke?: No Smoking Status: Never smoker Does the pt drink ETOH?: No Does the pt have substance abuse?: No - Immunizations Immunizations are current?: Yes - POLST Patient has POLST: No POLST Status: DNR PD ED PE NORMAL - Vitals Vital signs reviewed: Yes (hypertensive ) - General General: Alert and oriented X 3, No acute distress, Well developed/nourished - HEENT HEENT: PERRL, EOMI, Other (abrasion to the left anglican with mild tenderness and no step off or crepitance. ) - Neck Neck: Supple, no meningeal sign, No bony TTP - Cardiac Cardiac: RRR, No murmur - Respiratory Respiratory: No respiratory distress, Clear bilaterally, Other (The pigtail catheter for dialysis is present on the right chest wall. 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, No motor deficit, No sensory deficit Eye Opening: Spontaneous Motor: Obeys Commands Verbal: Oriented GCS Score: 15 - Psych Psych: Normal mood, Normal affect Results - Vitals Vitals: Vital Signs - 24 hr 08/04/19 08/04/19 08/04/19 10:38 11:00 13:00 Temperature 36.6 C Heart Rate 63 61 65 Respiratory 18 20 18 Rate Blood Pressure 156/94 H 159/90 H 168/105 H O2 Saturation 94 95 99 08/04/19 13:50 Temperature Heart Rate 66 Respiratory 18 Rate Blood Pressure 154/88 H O2 Saturation 96 Oxygen O2 Source [] Nasal cannula O2 Source [] Room air O2 Source Room air - Labs Labs: Laboratory Tests 08/04/19 08/04/19 12:40 12:40 WBC 7.6 RBC 4.19 L Hgb 12.7 L Hct 40.9 L MCV 97.6 H MCH 30.3 MCHC 31.1 L RDW 17.7 H Plt Count 144 MPV 9.6 Neut # (Auto) 5.2 Lymph # (Auto) 1.3 L [place] # (Auto) 0.8 Eos # (Auto) 0.2 Baso # (Auto) 0.0 Absolute Nucleated RBC 0.00 Nucleated RBC % 0.0 Sodium 139 Potassium 4.6 Chloride 99 L Carbon Dioxide 28 Anion Gap 12.0 BUN 27 H Creatinine 4.8 H Estimated GFR (MDRD) 12 L Glucose 97 Calcium 9.3 Total Bilirubin 0.9 AST 22 ALT 17 Alkaline Phosphatase 94 Total Protein 8.2 Albumin 3.4 Globulin 4.8 H Albumin/Globulin Ratio 0.7 L Lipase 48 - Rads (name of study) shoulder Radiology: Prelim report reviewed (Impression: Left humerus without acute fracture or dislocation. If there is persistent clinical concern for injury to the left elbow consider further evaluation with dedicated elbow radiographic series.), EMP read indepedently, See rad report PD MEDICAL DECISION MAKING - ED course Complexity details: reviewed old records, reviewed results, re-evaluated patient, considered differential, d/w patient ED course: 88-year-old male on hemodialysis lost control of his walker today fell and injured his left shoulder. He uses a walker at home for ambulation and may need extra help at home. Social work was consulted they were able to consult with the family who will provide additional help. He will also need additional in home home nursing and this will be reinstituted. Departure - Departure Disposition: Home, Self Care Clinical Impression: Fall as cause of accidental injury at home as place of occurrence Qualifiers: Encounter type: initial encounter Qualified Code(s): W19.XXXA - Unspecified fall, initial encounter Left shoulder strain Qualifiers: Encounter type: initial encounter Qualified Code(s): S46.912A - Strain of unspecified muscle, fascia and tendon at shoulder and upper arm level, left arm, initial encounter Condition: Stable Instructions: ED Sprain Shoulder Follow-Up: Hakeem Denise DO [Primary Care Provider] - Discharge Date/Time: 08/04/19 14:04
[2019-08-04 12:58] LABS: ALBUMIN 3.4 g/dL (3.2-5.5); ALBUMIN/GLOBULIN RATIO 0.7 (1.0-2.2); BILIRUBIN,TOTAL 0.9 mg/dL (0.2-1.0); CALCIUM 9.3 mg/dL (8.5-10.3); CREATININE 4.8 mg/dL (0.6-1.2); TOTAL PROTEIN 8.2 g/dL (6.7-8.2)
--- NOTE | 2019-08-04 13:07 | XRAY Report ---
Reason: fall proximal humerus pain Procedure Date: 08/04/2019 Accession Number: [id number] / [id number] Procedure: XR - Humerus LT CPT Code: Final Report FULL RESULT: PROCEDURE: Humerus LT INDICATIONS: fall proximal humerus pain TECHNIQUE: 4 views of the humerus were acquired. COMPARISON: Left shoulder radiographs dated 07/30/2019 are not available for review secondary to technical difficulties. FINDINGS: Bones: No acute fractures or dislocations. No suspicious bony lesions. Soft tissues: No suspicious soft tissue calcifications. Surgical clips are noted near the medial condyle IMPRESSION: Left humerus without acute fracture or dislocation. If there is persistent clinical concern for injury to the left elbow, consider further evaluation with dedicated elbow radiographic series. Reviewed by: Francis Rao MD on 08/04/2019 1:06 PM PDT Approved by: Francis Rao MD on 08/04/2019 1:06 PM PDT Station ID: [id number]
[2019-08-04 13:50] VITALS: BP 154/88
== END 2019-08-04 14:04 | disposition home or self-care (01) ==
LOC: EDUNIT# → ED 10:28
DX: S46.912A Strain of unspecified muscle, fascia and tendon at shoulder and upper arm level, left arm, initial encounter (principal); S00.81XA Abrasion of other part of head, initial encounter; W18.30XA Fall on same level, unspecified, initial encounter; Y93.01 Activity, walking, marching and hiking; Y92.009 Unspecified place in unspecified non-institutional (private) residence as the place of occurrence of the external cause; E11.22 Type 2 diabetes mellitus with diabetic chronic kidney disease; N18.6 End stage renal disease; I12.0 Hypertensive chronic kidney disease with stage 5 chronic kidney disease or end stage renal disease
CPT/HCPCS: 36415; 80053; 83690; 85025; 99282; 99284

== ENCOUNTER 2019-08-07 08:47 | Outpatient (CLI) | payer MEDICARE, OTHER | END 2019-08-07 08:48 | disposition critical access hospital (66) | LOC: EMS 08:47 | PROVIDERS: ATTEND Surgery | DX: R41.82 Altered mental status, unspecified (principal); R46.89 Other symptoms and signs involving appearance and behavior; W18.30XA Fall on same level, unspecified, initial encounter; Y93.01 Activity, walking, marching and hiking; Y92.009 Unspecified place in unspecified non-institutional (private) residence as the place of occurrence of the external cause | CPT/HCPCS: A0425; A0429 ==

== ENCOUNTER 2019-08-07 09:01 | Emergency (ER) | payer MEDICARE, OTHER ==
--- NOTE | 2019-08-07 09:15 | ED Physician Documentation ---
History of Present Illness - Stated complaint Stated Complaint: GLF - Chief complaint Chief Complaint: General - History obtained from History obtained from: Patient, EMS - History of Present Illness Timing: Today - Additonal information Additional information: 88-year-old male on renal dialysis over the past year has recently had an increase in his need for assistance at home and today he was found on the ground with his underwear and T-shirt on outside of his home on the way to a friend's house. The patient indicates that he was attempting to get a ride to [employer]. He is vague on why he did not have clothes on. He does have some early dementia lives alone and receives help from neighbors, family and caretakers. He has had a recent visit to the ED for a fall. Review of Systems Constitutional: denies: Fever Eyes: denies: Decreased vision Ears: denies: Ear pain Nose: denies: Congestion Throat: denies: Sore throat Cardiac: denies: Chest pain / pressure, Palpitations Respiratory: denies: Dyspnea, Cough GI: denies: Abdominal Pain, Nausea, Vomiting : denies: Dysuria, Frequency PD PAST MEDICAL HISTORY - Past Medical History Cardiovascular: Hypertension, High cholesterol Respiratory: None Neuro: None Endocrine/Autoimmune: Type 2 diabetes GI: GERD, Ulcers : Dialysis, Other HEENT: Chronic vision loss Psych: None Musculoskeletal: Osteoarthritis Derm: None - Past Surgical History Past Surgical History: Yes General: Appendectomy Ortho: Knee replacement Cardiovascular: Other Neuro: Craniotomy (for brain tumor, frontal area, years ago) HEENT: Tonsil/Adenoidectomy - Present Medications Home Medications: Ambulatory Orders Medication Instructions Recorded Confirmed Furosemide [Lasix] 1 tab ORAL 08/24/18 Metoprolol Tartrate 0.5 tab ORAL DAILY 08/24/18 08/24/18 Nitroglycerin [Nitrostat] 1 tab SL PRN PRN 08/24/18 08/24/18 Pantoprazole [Protonix] 40 mg PO BID 06/06/19 Diphenhydramine HCl [Allergy 5 - 10 ml DAILY PM PRN 06/24/19 06/24/19 Relief] Furosemide 80 mg 06/24/19 oxyCODONE [Roxicodone] 5 mg Q4HR PRN 06/24/19 06/24/19 Cefdinir 300 mg PO DAILY #10 capsule 06/29/19 - Allergies Allergies/Adverse Reactions: Allergies Allergy/AdvReac Type Severity Reaction Status Date / Time niacin Allergy Severe Hives Verified 08/04/19 10:37 - Social History Does the pt smoke?: No Smoking Status: Never smoker Does the pt drink ETOH?: No Does the pt have substance abuse?: No - Immunizations Immunizations are current?: Yes - POLST Patient has POLST: No POLST Status: DNR PD ED PE NORMAL - Vitals Vital signs reviewed: Yes (hypertensive ) - General General: No acute distress, Well developed/nourished - HEENT HEENT: PERRL, EOMI - Neck Neck: Supple, no meningeal sign, No bony TTP - Cardiac Cardiac: RRR, No murmur - Respiratory Respiratory: No respiratory distress, Clear bilaterally - Abdomen Abdomen: Soft, Non tender, No organomegaly - Back Back: No CVA TTP, No spinal TTP, Other (There is an abrasion to the upper mid back with mild tenderness associated with it there is no crepitance no specific rib point tenderness no specific point tenderness to spinous processes.) - Derm Derm: Normal color, Warm and dry, No rash - Extremities Extremities: No deformity, No edema - 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, No motor deficit, No sensory deficit, Normal speech Eye Opening: Spontaneous Motor: Obeys Commands Verbal: Confused GCS Score: 14 - Psych Psych: Normal mood, Normal affect Results - Vitals Vitals: Vital Signs - 24 hr 08/07/19 08/07/19 08/07/19 09:10 10:20 11:05 Temperature 35.2 C L 36.1 C L 36.4 C L Heart Rate 63 68 68 Respiratory 16 14 16 Rate Blood Pressure 171/88 H 155/86 H 136/89 H O2 Saturation 98 98 97 08/07/19 13:00 Temperature 36.4 C L Heart Rate 66 Respiratory 16 Rate Blood Pressure 158/83 H O2 Saturation 98 Oxygen O2 Source [With Activity] Nasal cannula O2 Source [Without Activity] Room air O2 Source Room air - Labs Labs: Laboratory Tests 08/07/19 08/07/19 09:19 09:19 WBC 6.3 RBC 4.12 L Hgb 12.3 L Hct 40.0 L MCV 97.1 H MCH 29.9 MCHC 30.8 L RDW 17.8 H Plt Count 172 MPV 10.6 Neut # (Auto) 4.5 Lymph # (Auto) 0.8 L [place] # (Auto) 0.8 Eos # (Auto) 0.1 Baso # (Auto) 0.0 Absolute Nucleated RBC 0.00 Nucleated RBC % 0.0 Sodium 138 Potassium 4.3 Chloride 101 Carbon Dioxide 23 Anion Gap 14.0 H BUN 33 H Creatinine 5.1 H Estimated GFR (MDRD) 11 L Glucose 137 H Calcium 9.2 Total Bilirubin 0.6 AST 23 ALT 17 Alkaline Phosphatase 85 Total Protein 7.9 Albumin 3.7 Globulin 4.2 Albumin/Globulin Ratio 0.9 L Lipase 49 PD MEDICAL DECISION MAKING - ED course Complexity details: reviewed old records, reviewed results, re-evaluated patient, considered differential, d/w patient ED course: 88-year-old male on hemodialysis for the past year has advancing dementia and he is having more difficulty caring for himself at home. He has now wandered from home and has been found outside partly clothed. He is not injured from the event today with the exception of an abrasion to the back. The geriatric social worker is again consulted and the case and additional resources are provided for the family. Departure - Departure Disposition: 01 Home, Self Care Clinical Impression: Fall from ground level Abrasion of back Qualifiers: Encounter type: initial encounter Laterality: unspecified laterality Qualified Code(s): S20.419A - Abrasion of unspecified back wall of thorax, initial encounter Condition: Stable Instructions: ED Contusion Back, ED Abrasion Follow-Up: Hakeem Denise DO [Primary Care Provider] -
[2019-08-07 09:31] LABS: BASOPHILS % (AUTO) 0.6 %; EOSINOPHILS # (AUTO) 0.1 10^3/uL (0.0-0.7); EOSINOPHILS % (AUTO) 1.8 %; HGB - HEMOGLOBIN 12.3 g/dL (14.0-18.0); LYMPHOCYTES # (AUTO) 0.8 10^3/uL (1.5-3.5); LYMPHOCYTES % (AUTO) 12.3 %; MEAN CORPUSCULAR HEMOGLOBIN 29.9 pg (27.0-31.0); MEAN CORPUSCULAR HGB CONC 30.8 g/dL (32.0-36.0); MEAN CORPUSCULAR VOLUME 97.1 fL (80.0-94.0); MEAN PLATELET VOLUME 10.6 fL (7.4-11.4); MONOCYTES # (AUTO) 0.8 10^3/uL (0.0-1.0); MONOCYTES % (AUTO) 13.2 %; NEUTROPHILS # (AUTO) 4.5 10^3/uL (1.5-6.6); NEUTROPHILS % (AUTO) 71.5 %; PLT - PLATELET COUNT 172 10^3/uL (130-450); RED BLOOD COUNT 4.12 10^6/uL (4.70-6.10); RED CELL DISTRIBUTION WIDTH 17.8 % (12.0-15.0); WHITE BLOOD COUNT 6.3 x10^3/uL (4.8-10.8)
[2019-08-07 09:41] LABS: ALBUMIN 3.7 g/dL (3.2-5.5); ALBUMIN/GLOBULIN RATIO 0.9 (1.0-2.2); BILIRUBIN,TOTAL 0.6 mg/dL (0.2-1.0); CALCIUM 9.2 mg/dL (8.5-10.3); CREATININE 5.1 mg/dL (0.6-1.2); TOTAL PROTEIN 7.9 g/dL (6.7-8.2)
[2019-08-07 16:59] VITALS: BP 138/72
== END 2019-08-07 17:00 | disposition home or self-care (01) ==
LOC: EDUNIT# → ED 09:01
DX: S20.419A Abrasion of unspecified back wall of thorax, initial encounter (principal); W18.30XA Fall on same level, unspecified, initial encounter; Y93.01 Activity, walking, marching and hiking; Y92.007 Garden or yard of unspecified non-institutional (private) residence as the place of occurrence of the external cause; F03.90 Unspecified dementia, unspecified severity, without behavioral disturbance, psychotic disturbance, mood disturbance, and anxiety; Z91.83 Wandering in diseases classified elsewhere; Z99.2 Dependence on renal dialysis; I10 Essential (primary) hypertension; E11.9 Type 2 diabetes mellitus without complications; Z66 Do not resuscitate
CPT/HCPCS: 36415; 80053; 83690; 85025; 99283

== ENCOUNTER 2019-09-06 16:53 | Outpatient (CLI) | payer MEDICARE, OTHER | END 2019-09-06 16:54 | disposition EMS.NT | LOC: EMS 16:53 | PROVIDERS: ATTEND Surgery | DX: Z03.89 Encounter for observation for other suspected diseases and conditions ruled out (principal) ==

== ENCOUNTER 2019-09-12 12:55 | Outpatient (CLI) | payer MEDICARE, OTHER | END 2019-09-12 12:56 | disposition critical access hospital (66) | LOC: EMS 12:55 | PROVIDERS: ATTEND Surgery | DX: M54.9 Dorsalgia, unspecified (principal); W18.39XA Other fall on same level, initial encounter; Y92.039 Unspecified place in apartment as the place of occurrence of the external cause | CPT/HCPCS: A0425; A0429 ==

== ENCOUNTER 2019-09-12 13:11 | Emergency (ER) | payer MEDICARE, OTHER ==
--- NOTE | 2019-09-12 13:34 | ED Physician Documentation ---
History of Present Illness - Stated complaint Stated Complaint: GLF - Chief complaint Chief Complaint: Trauma Ch/Bk - History obtained from History obtained from: Patient, EMS - History of Present Illness Timing: Prior to arrival Pain level max: 8 Pain level now: 6 - Additonal information Additional information: 88-year-old male comes to the emergency department via EMS after a witnessed ground-level fall where he was transferring from his wheelchair to the stretcher for transport. Patient was getting prepared to go to his dialysis session when he fell. He reports striking his head on the ground and he has some midline lower cervical spine pain. He denies any LOC and has full memory of the events. he denies numbness or tingling in his extremities He presents via EMS on a backboard and c-collar in place. Utilizing a teamed approach, patient was log rolled maintaining C-spine stabilization. He is noted to have tenderness at the base of the cervical spine. There is no tenderness elicited on the thoracic or lumbar vertebrae. Backboard was removed. C-collar remains in place CT of the head and cervical spine is pending Review of Systems Constitutional: denies: Fever, Chills Cardiac: denies: Chest pain / pressure, Palpitations Musculoskeletal: reports: Neck pain Neurologic: reports: Headache. denies: Generalized weakness, Numbness, Difficulty speaking, Syncope, Seizure, Confused, Altered mental status, Unresponsive, LOC PD PAST MEDICAL HISTORY - Past Medical History Cardiovascular: Hypertension, High cholesterol Respiratory: None Neuro: None Endocrine/Autoimmune: Type 2 diabetes GI: GERD, Ulcers : Dialysis, Other (ESRD) HEENT: Chronic vision loss Psych: None Musculoskeletal: Osteoarthritis Derm: None - Past Surgical History Past Surgical History: Yes General: Appendectomy Ortho: Knee replacement Cardiovascular: Other Neuro: Craniotomy (for brain tumor, frontal area, years ago) HEENT: Tonsil/Adenoidectomy - Present Medications Home Medications: Ambulatory Orders Medication Instructions Recorded Confirmed Furosemide [Lasix] 1 tab ORAL 08/24/18 Metoprolol Tartrate 0.5 tab ORAL DAILY 08/24/18 08/24/18 Nitroglycerin [Nitrostat] 1 tab SL PRN PRN 08/24/18 08/24/18 Pantoprazole [Protonix] 40 mg PO BID 06/06/19 Diphenhydramine HCl [Allergy 5 - 10 ml DAILY PM PRN 06/24/19 06/24/19 Relief] Furosemide 80 mg 06/24/19 oxyCODONE [Roxicodone] 5 mg Q4HR PRN 06/24/19 06/24/19 Cefdinir 300 mg PO DAILY #10 capsule 06/29/19 - Allergies Allergies/Adverse Reactions: Allergies Allergy/AdvReac Type Severity Reaction Status Date / Time niacin Allergy Severe Hives Verified 09/12/19 13:20 - Social History Does the pt smoke?: No Smoking Status: Never smoker Does the pt drink ETOH?: No Does the pt have substance abuse?: No - Immunizations Immunizations are current?: Yes - POLST Patient has POLST: No POLST Status: DNR PD ED PE EXPANDED - General General: Alert, No acute distress, Well developed/nourished - Eyes Eyes: PERRL, Normal accommodation, EOMI - Neck Neck: Soft tissue TTP (lower cervical midline tenderness to palpation without crepitus or erythema), Bony TTP - Cardiac Cardiac: Regular Rate - Respiratory Respiratory: Clear to ausultation joon, Other (tunneled vas cath right chest). No: Distress, Labored - Back Back: Other (thoracic and lumbar spine palpated no midline tenderness or crepitus). No: Vertebral tenderness, Soft tissue tenderness Results - Vitals Vitals: Vital Signs - 24 hr 09/12/19 09/12/19 13:11 14:19 Temperature 36 C L 36.6 C Heart Rate 52 L 53 L Respiratory 16 12 Rate Blood Pressure 158/89 H 157/88 H O2 Saturation 95 98 Oxygen O2 Source [With Activity] Nasal cannula O2 Source [Without Activity] Room air O2 Source Room air - Rads (name of study) CT neck Radiology: Final report received (No fracture. No osseous lesion.) CT head Radiology: Final report received (No CT evidence of acute intracranial pathology. Stable postsurgical changes in the frontal region with underlying frontal lobe encephalomalacia. No acute skull fracture. Frontal scalp swelling/hematoma) PD MEDICAL DECISION MAKING - ED course Complexity details: reviewed results, re-evaluated patient, d/w patient ED course: 88-year-old male presented to the emergency department after a ground-level fall this morning when he was transferring to a wheelchair. He struck the back of his head on the ground and his neck hit the wheelchair. - Patient arrived in a rigid cervical collar and backboard via EMS. Backboard was removed promptly upon arrival to the emergency department - CT of the head and neck was completed. No findings to suggest traumatic brain injury, skull fracture, or cervical spine fracture.The collar was removed and patient reports that he no longer has head or neck pain. His motor strength is full and equal in the upper extremities. He will be discharged home to pursue dialysis today. Departure - Departure Disposition: Home, Self Care Clinical Impression: Neck pain, ESRD on dialysis Fall Qualifiers: Encounter type: initial encounter Qualified Code(s): W19.XXXA - Unspecified fall, initial encounter Condition: Stable Instructions: ED Neck Back Pain General Comments: The CT scan of your head and neck did not show any broken bones, skull fractures, or signs of traumatic brain injury. Return here for numbness or tingling in your upper extremities or if you develop suddenly severe headache or any labored breathing
--- NOTE | 2019-09-12 14:07 | CT Report ---
PROCEDURE: HEAD WO INDICATIONS: GLF; hit head TECHNIQUE: Noncontrast 4.5 mm thick angled axial sections acquired from the foramen magnum to the vertex. For r adiation dose reduction, the following was used: automated exposure control, adjustment of mA and/or kV according to patient size. COMPARISON: 07/30/2019 FINDINGS: Image quality: Diagnostic, patient motion is noted. CSF spaces: Basal cisterns are patent. No extra-axial fluid collections. The ventricles are symmet samm in size and shape. Brain: Extensive encephalomalacia involving frontal lobes are again seen, unchanged from prior study . No intracranial bleeds or masses. There is cerebral volume loss for age, with resultant ventricula r and sulcal prominence. There are periventricular and deep white matter chronic small vessel ischem ic changes. There is intracranial internal carotid artery atherosclerosis. Skull and face: Bifrontal scalp swelling and small hematoma is seen. There is frontal craniotomy with postsurgical changes unchanged from prior studies. No gross acute skull fracture. Visualized bones a ppear intact. Sinuses: Visualized sinuses and mastoids are clear. IMPRESSION: 1. No CT evidence of acute intracranial pathology. 2. Stable postsurgical changes in frontal region with underlying frontal lobe encephalomalacia. No ac [place] skull fracture. Frontal scalp swelling/hematoma. Reviewed by: Suleiman Barraza MD on 09/12/2019 2:06 PM PDT Approved by: Suleiman Barraza MD on 09/12/2019 2:06 PM PDT Station ID: [id number]
--- NOTE | 2019-09-12 14:15 | CT Report ---
PROCEDURE: CERVICAL SPINE WO INDICATIONS: GLF; midline lower neck pain. r/o fx TECHNIQUE: Noncontrast 3 mm thick sections acquired from the skull base to the T4 level. Sagittal and coronal r eformats were then constructed. For radiation dose reduction, the following was used: automated exp osure control, adjustment of mA and/or kV according to patient size. COMPARISON: 06/06/2019. FINDINGS: Image quality: Excellent. Bones: No fractures or dislocations. Mild anterior wedging of the T4 vertebral bodies not significan t changed compared to prior examination Trace C4-C5 degenerative anterolisthesis is stable compared t o the prior examination. Bones are diffusely osteopenic. C3-C4 and C6-C7 ankylosis. Visualized superi or ribs are intact. 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 Soft tissues: Prevertebral soft tissues are normal in thickness. No paravertebral hematomas. No ap ical pneumothoraces. IMPRESSION: No fracture. No acute osseous lesion. If there is continued clinical concern for pathology, then MRI should be considered for further evaluation. Reviewed by: Sonia Chandler MD, PhD on 09/12/2019 2:13 PM PDT Approved by: Sonia Chandler MD, PhD on 09/12/2019 2:13 PM PDT Station ID: [id number]
[2019-09-12 15:33] VITALS: BP 156/86
== END 2019-09-12 15:46 | disposition home or self-care (01) ==
LOC: EDUNIT# → ED 13:11
DX: M54.2 Cervicalgia (principal); W05.0XXA Fall from non-moving wheelchair, initial encounter; Y93.89 Activity, other specified; I12.0 Hypertensive chronic kidney disease with stage 5 chronic kidney disease or end stage renal disease; E11.22 Type 2 diabetes mellitus with diabetic chronic kidney disease; N18.6 End stage renal disease; Z99.2 Dependence on renal dialysis; Z66 Do not resuscitate
CPT/HCPCS: 70450; 72125; 99284